=== PATIENT | male | born 1970 | race Caucasian/White ===

== ENCOUNTER 2018-02-04 16:33 | Inpatient (IN) | payer OTHER ==
[~2018-02-04 16:33] MED LIST: SUCCINYLCHOLINE CHLORIDE VIAL 200 MG/10 ML VIAL IV ONE
[2018-02-04] MEDS ORDERED: SODIUM CHLORIDE 0.9% 1,000 ML IV STA (16:51)
--- NOTE | 2018-02-04 17:02 | ED ---
General Adult HPI - General Chief complaint: Seizure Stated complaint: unresponsive Time Seen by Provider: 02/04/18 16:50 Source: EMS Mode of arrival: EMS Limitations: altered mental status - History of Present Illness Initial comments: Lazaro Hunter is a 47-year-old male who presents to the ED via EMS unresponsive. Per EMS the patient's significant other returned home and found him in his bed having an active tonic-clonic seizure, 911 was called and EMS arrived on scene. They report that upon their arrival the patient remained in his bed having a tonic-clonic seizure. They established IV access and gave him 7.5 mg of Versed with subsequent resolution of the seizure. EMS reports that patient was seizing for 30 minutes that they witnessed but is uncertain how long he been seizing prior to that. Per EMS they were told by the patient's girlfriend she had last seen him a couple of days ago. Per her he does have a history of alcohol abuse, she doesn't believe that he has been attempting to stop drinking. She believes he has a history of hypertension but is not on any medications. EMS reports that there was no alcohol around the patient, there is no drug paraphernalia, there are no empty pill bottles. Further history is limited by the patient's unconscious state. - Related Data Home Medications Medication Instructions Recorded Confirmed Grape Seed Extract 1 tab PO DAILY 02/04/18 02/04/18 Magnesium(Unknown Dose) 1 tab PO DAILY 02/04/18 02/04/18 Multivitamins, Thera [Multivitamin 1 tab PO DAILY 02/04/18 02/04/18 (formulary)] Potassium 99 mg PO DAILY 02/04/18 02/04/18 Allergies Allergy/AdvReac Type Severity Reaction Status Date / Time No Known Allergies Allergy Unverified 02/04/18 18:31 Review of Systems ROS Statement: Those systems with pertinent positive or pertinent negative responses have been documented in the HPI. ROS Other: All systems not noted in ROS Statement are negative. Limitations: ROS unobtainable due to patients medical condition Past Medical History Past Medical History: No Reported History History of Any Multi-Drug Resistant Organisms: None Reported Past Surgical History: No Surgical Hx Reported Past Psychological History: No Psychological Hx Reported Smoking Status: Never smoker Past Alcohol Use History: None Reported Past Drug Use History: None Reported - Past Family History Father Family Medical History: Cancer Additional Family Medical History / Comment(s): lung cancer and agent orange exposure. Mother Family Medical History: No Reported History General Exam Limitations: altered mental status (Unresponsive) General appearance: other (Unresponsive) Head exam: Present: atraumatic, normocephalic Eye exam: Present: PERRL, other (No spontaneous eye opening, when eyelids are open the eyes or moving any seizure-like manner) ENT exam: Present: TM's normal bilaterally, other (Poor dentition) Neck exam: Present: other (Cervical collar in place) Respiratory exam: Present: other (Breathing spontaneously, coarse breath sounds bilaterally) Cardiovascular Exam: Present: normal rhythm, tachycardia, other (Bruising to right lateral chest wall) GI/Abdominal exam: Absent: distended Extremities exam: Present: other (No obvious deformities or injuries) Neurological exam: Present: other (Unresponsive, no spontaneous speaking, no spontaneous eye opening, no response to pain, GCS 3) Skin exam: Present: warm, diaphoretic Course Vital Signs 02/04/18 02/04/18 02/04/18 16:34 17:00 18:00 Temperature 100.8 F H 101.8 F H 100.9 F H Pulse Rate 110 H 92 94 Respiratory 16 16 18 Rate Blood Pressure 146/65 130/78 121/77 O2 Sat by Pulse 99 99 100 Oximetry 02/04/18 02/04/18 02/04/18 19:00 20:00 21:00 Temperature 100.4 F H 100.6 F H 100.2 F H Pulse Rate 92 90 95 Respiratory 14 16 18 Rate Blood Pressure 113/72 121/75 123/80 O2 Sat by Pulse 100 100 98 Oximetry 02/04/18 21:32 Temperature 100.6 F H Pulse Rate 87 Respiratory 16 Rate Blood Pressure 125/80 O2 Sat by Pulse 100 Oximetry EKG Findings - EKG Comments: EKG Findings:: EKG at 1637 - 8 is 107, rhythm is sinus tachycardia, normal axis , MT interval is normal, QRS is normal, QT is prolonged at 528, no evidence of acute ischemia or infarction Procedures - Intubation Sedative: Etomidate Paralytic: Succinylcholine Laryngoscope: fiber optic video scope Assist Device Used: fiber optic device ET Tube Size: 8 ET Tube Uncuffed: No Tube Secured Location: teeth Tube Placement Confirmation: visualized tube passing through cords, equal breath sounds bilaterally Patient Tolerated Procedure: well, no complications Intubation Complications: none Medical Decision Making - Medical Decision Making The patient was seen and evaluated immediately upon arrival to the emergency department The patient was unresponsive but had spontaneous respirations and an oxygen saturation of 100% on nonrebreather Due to low GCS decision was made to intubate the patient IV access was obtained, blood was obtained for labs, patient was intubated Patient noted to be febrile, tachycardic, diaphoretic Labs and imaging were ordered Patient was reevaluated and noted to be continuously seizing, IV Ativan was ordered and propofol drip was increased Labs begin to resolve with multiple significant electrolyte abnormalities including hyponatremia with a sodium of 112, hypokalemia with a potassium at 2.1 , low serum osmolality Patient care was discussed with nephrology environmental systems coordinator who recommended 3% saline infusion at 40 mL per hour and every 2 BMPs to follow a sodium - Lab Data Result diagrams: 02/04/18 16:58 02/04/18 21:56 Lab Results 02/04/18 02/04/18 02/04/18 Range/Units 16:58 16:58 16:58 WBC 9.8 (3.8-10.6) k/uL RBC 4.23 L (4.30-5.90) m/uL Hgb 14.4 (13.0-17.5) gm/dL Hct 38.8 L (39.0-53.0) % MCV 91.8 (80.0-100.0) fL MCH 34.1 (25.0-35.0) pg MCHC 37.2 H (31.0-37.0) g/dL RDW 12.1 (11.5-15.5) % Plt Count 259 (150-450) k/uL Neutrophils % 89 % Lymphocytes % 2 % Monocytes % 8 % Eosinophils % 0 % Basophils % 0 % Neutrophils # 8.8 H (1.3-7.7) k/uL Lymphocytes # 0.2 L (1.0-4.8) k/uL Monocytes # 0.8 (0-1.0) k/uL Eosinophils # 0.0 (0-0.7) k/uL Basophils # 0.0 (0-0.2) k/uL Hyperchromasia Marked Sample Site ABG pH (7.35-7.45) ABG pCO2 (35-45) mmHg ABG pO2 (83-108) mmHg ABG HCO3 (21-25) mmol/L ABG Total CO2 (19-24) mmol/L ABG O2 Saturation (94-97) % ABG Base Excess mmol/L Everardo Test FiO2 % Sodium 112 L* (137-145) mmol/L Potassium 2.1 L* (3.5-5.1) mmol/L Chloride <50 L* (98-107) mmol/L Carbon Dioxide 42 H* (22-30) mmol/L Anion Gap 20 mmol/L BUN 20 (9-20) mg/dL Creatinine 0.70 (0.66-1.25) mg/dL Est GFR (CKD-EPI)AfAm >90 (>60 ml/min/1.73 sqM) Est GFR (CKD-EPI)NonAf >90 (>60 ml/min/1.73 sqM) Glucose 159 H (74-99) mg/dL Osmolality 236 L* (280-301) mosm/kg Plasma Lactic Acid Esa (0.7-2.0) mmol/L Calcium 8.4 (8.4-10.2) mg/dL Total Bilirubin 1.3 (0.2-1.3) mg/dL AST 96 H (17-59) U/L ALT 80 H (21-72) U/L Alkaline Phosphatase 182 H (38-126) U/L CK-MB (CK-2) 1.4 (0.0-2.4) ng/mL Total Protein 7.2 (6.3-8.2) g/dL Albumin 4.3 (3.5-5.0) g/dL Urine Color Urine Appearance (Clear) Urine pH (5.0-8.0) Ur Specific [place] (1.001-1.035) Urine Protein (Negative) Urine Glucose (UA) (Negative) Urine Ketones (Negative) Urine Blood (Negative) Urine Nitrite (Negative) Urine Bilirubin (Negative) Urine Urobilinogen (<2.0) mg/dL Ur Leukocyte Esterase (Negative) Urine RBC (0-5) /hpf Urine WBC (0-5) /hpf Ur Squamous Epith Cells (0-4) /hpf Urine Bacteria (None) /hpf Hyaline Casts (0-2) /lpf Urine Mucus (None) /hpf Urine Osmolality (50-1400) mosm/kg Ur Random Sodium (30-90) mmol/L Salicylates <1.0 mg/dL Urine Opiates Screen (NotDetected) Ur Oxycodone Screen (NotDetected) Urine Methadone Screen (NotDetected) Ur Propoxyphene Screen (NotDetected) Acetaminophen <10.0 ug/mL Ur Barbiturates Screen (NotDetected) U Tricyclic Antidepress (NotDetected) Ur Phencyclidine Scrn (NotDetected) Ur Amphetamines Screen (NotDetected) U Methamphetamines Scrn (NotDetected) U Benzodiazepines Scrn (NotDetected) Urine Cocaine Screen (NotDetected) U Marijuana (THC) Screen (NotDetected) Serum Alcohol <10 mg/dL 02/04/18 02/04/18 02/04/18 Range/Units 16:58 16:58 16:58 WBC (3.8-10.6) k/uL RBC (4.30-5.90) m/uL Hgb (13.0-17.5) gm/dL Hct (39.0-53.0) % MCV (80.0-100.0) fL MCH (25.0-35.0) pg MCHC (31.0-37.0) g/dL RDW (11.5-15.5) % Plt Count (150-450) k/uL Neutrophils % % Lymphocytes % % Monocytes % % Eosinophils % % Basophils % % Neutrophils # (1.3-7.7) k/uL Lymphocytes # (1.0-4.8) k/uL Monocytes # (0-1.0) k/uL Eosinophils # (0-0.7) k/uL Basophils # (0-0.2) k/uL Hyperchromasia Sample Site ABG pH (7.35-7.45) ABG pCO2 (35-45) mmHg ABG pO2 (83-108) mmHg ABG HCO3 (21-25) mmol/L ABG Total CO2 (19-24) mmol/L ABG O2 Saturation (94-97) % ABG Base Excess mmol/L Everardo Test FiO2 % Sodium (137-145) mmol/L Potassium (3.5-5.1) mmol/L Chloride (98-107) mmol/L Carbon Dioxide (22-30) mmol/L Anion Gap mmol/L BUN (9-20) mg/dL Creatinine (0.66-1.25) mg/dL Est GFR (CKD-EPI)AfAm (>60 ml/min/1.73 sqM) Est GFR (CKD-EPI)NonAf (>60 ml/min/1.73 sqM) Glucose (74-99) mg/dL Osmolality (280-301) mosm/kg Plasma Lactic Acid Sea (0.7-2.0) mmol/L Calcium (8.4-10.2) mg/dL Total Bilirubin (0.2-1.3) mg/dL AST (17-59) U/L ALT (21-72) U/L Alkaline Phosphatase (38-126) U/L CK-MB (CK-2) (0.0-2.4) ng/mL Total Protein (6.3-8.2) g/dL Albumin (3.5-5.0) g/dL Urine Color Yellow Urine Appearance Clear (Clear) Urine pH 6.5 (5.0-8.0) Ur Specific [place] 1.014 (1.001-1.035) Urine Protein 2+ H (Negative) Urine Glucose (UA) Negative (Negative) Urine Ketones 1+ H (Negative) Urine Blood Small H (Negative) Urine Nitrite Negative (Negative) Urine Bilirubin Negative (Negative) Urine Urobilinogen 3.0 (<2.0) mg/dL Ur Leukocyte Esterase Negative (Negative) Urine RBC 2 (0-5) /hpf Urine WBC 1 (0-5) /hpf Ur Squamous Epith Cells <1 (0-4) /hpf Urine Bacteria Rare H (None) /hpf Hyaline Casts 30 H (0-2) /lpf Urine Mucus Rare H (None) /hpf Urine Osmolality 407 (50-1400) mosm/kg Ur Random Sodium 12 L (30-90) mmol/L Salicylates mg/dL Urine Opiates Screen Not Detected (NotDetected) Ur Oxycodone Screen Not Detected (NotDetected) Urine Methadone Screen Not Detected (NotDetected) Ur Propoxyphene Screen Not Detected (NotDetected) Acetaminophen ug/mL Ur Barbiturates Screen Not Detected (NotDetected) U Tricyclic Antidepress Not Detected (NotDetected) Ur Phencyclidine Scrn Not Detected (NotDetected) Ur Amphetamines Screen Not Detected (NotDetected) U Methamphetamines Scrn Not Detected (NotDetected) U Benzodiazepines Scrn Not Detected (NotDetected) Urine Cocaine Screen Not Detected (NotDetected) U Marijuana (THC) Screen Not Detected (NotDetected) Serum Alcohol mg/dL 02/04/18 02/04/18 Range/Units 17:18 17:34 WBC (3.8-10.6) k/uL RBC (4.30-5.90) m/uL Hgb (13.0-17.5) gm/dL Hct (39.0-53.0) % MCV (80.0-100.0) fL MCH (25.0-35.0) pg MCHC (31.0-37.0) g/dL RDW (11.5-15.5) % Plt Count (150-450) k/uL Neutrophils % % Lymphocytes % % Monocytes % % Eosinophils % % Basophils % % Neutrophils # (1.3-7.7) k/uL Lymphocytes # (1.0-4.8) k/uL Monocytes # (0-1.0) k/uL Eosinophils # (0-0.7) k/uL Basophils # (0-0.2) k/uL Hyperchromasia Sample Site Right Radial ABG pH 7.48 H (7.35-7.45) ABG pCO2 61 H (35-45) mmHg ABG pO2 >400 H (83-108) mmHg ABG HCO3 45 H* (21-25) mmol/L ABG Total CO2 47 H (19-24) mmol/L ABG O2 Saturation 100.0 H (94-97) % ABG Base Excess 21.8 mmol/L Everardo Test Yes FiO2 100 % Sodium (137-145) mmol/L Potassium (3.5-5.1) mmol/L Chloride (98-107) mmol/L Carbon Dioxide (22-30) mmol/L Anion Gap mmol/L BUN (9-20) mg/dL Creatinine (0.66-1.25) mg/dL Est GFR (CKD-EPI)AfAm (>60 ml/min/1.73 sqM) Est GFR (CKD-EPI)NonAf (>60 ml/min/1.73 sqM) Glucose (74-99) mg/dL Osmolality (280-301) mosm/kg Plasma Lactic Acid Esa 1.0 (0.7-2.0) mmol/L Calcium (8.4-10.2) mg/dL Total Bilirubin (0.2-1.3) mg/dL AST (17-59) U/L ALT (21-72) U/L Alkaline Phosphatase (38-126) U/L CK-MB (CK-2) (0.0-2.4) ng/mL Total Protein (6.3-8.2) g/dL Albumin (3.5-5.0) g/dL Urine Color Urine Appearance (Clear) Urine pH (5.0-8.0) Ur Specific [place] (1.001-1.035) Urine Protein (Negative) Urine Glucose (UA) (Negative) Urine Ketones (Negative) Urine Blood (Negative) Urine Nitrite (Negative) Urine Bilirubin (Negative) Urine Urobilinogen (<2.0) mg/dL Ur Leukocyte Esterase (Negative) Urine RBC (0-5) /hpf Urine WBC (0-5) /hpf Ur Squamous Epith Cells (0-4) /hpf Urine Bacteria (None) /hpf Hyaline Casts (0-2) /lpf Urine Mucus (None) /hpf Urine Osmolality (50-1400) mosm/kg Ur Random Sodium (30-90) mmol/L Salicylates mg/dL Urine Opiates Screen (NotDetected) Ur Oxycodone Screen (NotDetected) Urine Methadone Screen (NotDetected) Ur Propoxyphene Screen (NotDetected) Acetaminophen ug/mL Ur Barbiturates Screen (NotDetected) U Tricyclic Antidepress (NotDetected) Ur Phencyclidine Scrn (NotDetected) Ur Amphetamines Screen (NotDetected) U Methamphetamines Scrn (NotDetected) U Benzodiazepines Scrn (NotDetected) Urine Cocaine Screen (NotDetected) U Marijuana (THC) Screen (NotDetected) Serum Alcohol mg/dL Disposition Clinical Impression: Generalized seizure Disposition: ADMITTED IP TO THIS [facility] Decision Time: 22:00
[2018-02-04 17:21] LABS: Basophils % (A) 0 %; Eosinophils % (A) 0 %; HCT 38.8 % (39.0-53.0); HGB 14.4 gm/dL (13.0-17.5); Hyperchromasia Marked; Lymphocytes # (A) 0.2 k/uL (1.0-4.8); Lymphocytes % (A) 2 %; MCH 34.1 pg (25.0-35.0); MCHC 37.2 g/dL (31.0-37.0); MCV 91.8 fL (80.0-100.0); Mean Platelet Volume 6.7; Monocytes # (A) 0.8 k/uL (0-1.0); Monocytes % (A) 8 %; Neutrophils # (A) 8.8 k/uL (1.3-7.7); Neutrophils % (A) 89 %; Platelet Count 259 k/uL (150-450); RBC 4.23 m/uL (4.30-5.90); RDW 12.1 % (11.5-15.5); WBC 9.8 k/uL (3.8-10.6)
[2018-02-04 17:23] LABS: Amphetamine Screen,Urine Not Detected (NotDetected); Barbiturate Screen,Urine Not Detected (NotDetected); Benzodiazepines Screen,Urine Not Detected (NotDetected); Cocaine Screen,Urine Not Detected (NotDetected); Methadone Screen, Urine Not Detected (NotDetected); Opiate Screen,Urine Not Detected (NotDetected); Oxycodone Screen, Urine Not Detected (NotDetected); Phencyclidine Screen,Urine Not Detected (NotDetected); Tricyclic Antidepressant,Urine Not Detected (NotDetected); Urn Cannabinoid Scrn Not Detected (NotDetected)
[2018-02-04 17:29] LABS: ALT 80 U/L (21-72); AST 96 U/L (17-59); Acetaminophen <10.0 ug/mL; Albumin 4.3 g/dL (3.5-5.0); Alcohol <10 mg/dL; Alkaline Phosphatase 182 U/L (38-126); Blood Urea Nitrogen 20 mg/dL (9-20); Calcium 8.4 mg/dL (8.4-10.2); Glucose 159 mg/dL (74-99); Salicylate <1.0 mg/dL; Total Bilirubin 1.3 mg/dL (0.2-1.3); Total Protein 7.2 g/dL (6.3-8.2)
[2018-02-04 17:36] LABS: Anion Gap 20 mmol/L
[2018-02-04 17:36] LABS: ABG Base Excess 21.8 mmol/L; ABG PCO2 61 mmHg (35-45); ABG PH 7.48 (7.35-7.45); ABG PO2 >400 mmHg (83-108); ABG TCO2 47 mmol/L (19-24)
[2018-02-04 17:37] LABS: ABG HCO3 45 mmol/L (21-25)
[2018-02-04 17:39] LABS: Carbon Dioxide 42 mmol/L (22-30); Chloride <50 mmol/L (98-107); Potassium 2.1 mmol/L (3.5-5.1); Sodium 112 mmol/L (137-145)
[2018-02-04] MEDS ORDERED: LORazepam 2 MG/ML INJ IV STA (17:39)
[2018-02-04] MEDS ORDERED: PROPOFOL 1,000 MG in EMPTY BAG 1 BAG IV ONE (17:40)
--- NOTE | 2018-02-04 17:40 | XR ---
EXAMINATION TYPE: XR chest 1V DATE OF EXAM: 02/04/2018 COMPARISON: 12/10/2013 HISTORY: Intubation TECHNIQUE: Single frontal view of the chest is obtained. FINDINGS: Endotracheal tube is 3.5 cm from the nanda. Lungs are clear of consolidation. There is so me coarsening of interstitial markings. There is no pleural effusion. Heart size is normal. There are chest leads. IMPRESSION: New mild pulmonary interstitial infiltrates in the midlung rendon compared to last exam. Normal heart.
[2018-02-04] MEDS ORDERED: levETIRAcetam IV 1,500 MG in SALINE 1 100ML.BAG IVPB STA (17:41)
[2018-02-04 17:42] LABS: Appearance,Urine Clear (Clear); Bacteria,Urine Rare /hpf; Bilirubin,Urine Negative (Negative); Blood,Urine Small (Negative); Color,Urine Yellow; Glucose,Urine (UA) Negative (Negative); Hyaline Casts,Urine 30 /lpf (0-2); Ketones,Urine 1+ (Negative); Leukocyte Esterase,Urine Negative (Negative); Mucus,Urine Rare /hpf; Nitrite,Urine Negative (Negative); PH, Urine 6.5 (5.0-8.0); Protein,Urine 2+ (Negative); RBC,Urine 2 /hpf (0-5); Specific Gravity,Urine 1.014 (1.001-1.035); Squamous Epithelial Cell,Urine <1 /hpf (0-4); WBC,Urine 1 /hpf (0-5)
[2018-02-04] MEDS ORDERED: POTASSIUM CHLORIDE 10 MEQ in WATER FOR INJECTION 1 100ML.BAG IVPB STA (18:03)
--- NOTE | 2018-02-04 18:22 | CT ---
EXAMINATION TYPE: CT brain moreno bishop con DATE OF EXAM: 02/04/2018 COMPARISON: Seizure activity. Neck pain HISTORY: Seizure activity today. CT DLP: 1119.5 mGycm Automated exposure control for dose reduction was used. TECHNIQUE: CT scan of the head and cervical spine are performed without contrast. FINDINGS: There is some cerebral cortical atrophy. There is no mass effect nor midline shift. There is no sign of intracranial hemorrhage. The calvarium is intact. The cervical vertebra have normal alignment and spacing. Posterior elements are intact. Facet joints are normal. There is mild spurring of the endplates at C5-6. The skull base is intact. Endotracheal t ube is noted. There is nasogastric tube. IMPRESSION: Cerebral atrophy. No acute intracranial abnormality. Negative CT scan of the cervical spine. Mild facet arthropathy and spondylotic change in the lower ce rvical spine.
[2018-02-04] MEDS ORDERED: SODIUM CHLORIDE 3%(HYPERTONIC) 500 ML IV SCH ×2 (18:30)
[2018-02-04] MEDS ORDERED: NALOXONE 0.4 MG/ML 1 ML VIAL IV PRN (19:20)
[2018-02-04] MEDS ORDERED: ETOMIDATE 2 MG/ML 10 ML VIAL IVP STA (20:37)
[2018-02-04 21:58] LABS: Glucose,Whole Blood 116 mg/dL (75-99)
[2018-02-04 22:24] LABS: Anion Gap 15 mmol/L; Blood Urea Nitrogen 17 mg/dL (9-20); Calcium 7.1 mg/dL (8.4-10.2); Carbon Dioxide 35 mmol/L (22-30); Glucose 107 mg/dL (74-99)
[2018-02-04] MEDS ORDERED: LORazepam 2 MG/ML INJ IV PRN (22:27)
[2018-02-04 22:34] LABS: Potassium 2.1 mmol/L (3.5-5.1); Sodium 117 mmol/L (137-145)
[2018-02-04 22:35] LABS: Chloride 67 mmol/L (98-107)
[2018-02-04] MEDS ORDERED: SODIUM CHLORIDE 0.45% 1,000 ML IV ONE (22:41)
[2018-02-04] MEDS ORDERED: POTASSIUM BICARBONATE/CIT AC 20 MEQ TABLET.EFF PO ONE (22:45)
[2018-02-04] MEDS: POTASSIUM CHLORIDE 10 MEQ in WATER FOR INJECTION 1 100ML.BAG IVPB SCH (23:05)
[2018-02-05] MEDS: POTASSIUM CHLORIDE 10 MEQ in WATER FOR INJECTION 1 100ML.BAG IVPB SCH ×3 (00:15→03:34)
--- NOTE | 2018-02-05 00:17 | XR ---
EXAMINATION TYPE: XR chest 1V portable DATE OF EXAM: 02/05/2018 COMPARISON: Today HISTORY: Check tube placement TECHNIQUE: Single frontal view of the chest is obtained. FINDINGS: Endotracheal tube is 4 cm from the nanda. Lungs are clear. There is no heart failure. Wilner ogastric tube appears to have tip over the heart in the lower esophagus. IMPRESSION: Nasogastric tube is not in the stomach and is approximately 10 cm from the gastroesophag eal junction. No heart failure.
[2018-02-05] MEDS: PIPERACILLIN-TAZOBACTAM 3.375 GM in DEXTROSE/WATER 1 50ML.BAG IVPB SCH ×3 (00:34→15:54)
--- NOTE | 2018-02-05 01:48 | XR ---
EXAMINATION TYPE: XR chest 1V portable DATE OF EXAM: 02/05/2018 COMPARISON: 02/04/2018 HISTORY: NG tube placement TECHNIQUE: Single frontal view of the chest is obtained. FINDINGS: Heart and mediastinum are normal. Lungs are clear of consolidation. Endotracheal tube is i n good position. There is nasogastric tube. This appears in good position in the gastric fundus. Endo tracheal tube is 5 cm from the nanda. Trachea is midline. There are chest leads. IMPRESSION: No active cardiopulmonary disease. NG tube in good position..
[2018-02-05 02:49] LABS: Anion Gap 12 mmol/L; Blood Urea Nitrogen 14 mg/dL (9-20); Calcium 7.4 mg/dL (8.4-10.2); Carbon Dioxide 37 mmol/L (22-30); Glucose 113 mg/dL (74-99); Potassium 3.3 mmol/L (3.5-5.1)
[2018-02-05 03:11] LABS: Chloride 67 mmol/L (98-107); Sodium 116 mmol/L (137-145)
[2018-02-05] MEDS: LORazepam 2 MG/ML INJ IV PRN (04:31)
[2018-02-05 04:45] LABS: HCT 35.3 % (39.0-53.0); HGB 12.8 gm/dL (13.0-17.5); Hyperchromasia Slight; MCH 34.6 pg (25.0-35.0); MCHC 36.3 g/dL (31.0-37.0); MCV 95.3 fL (80.0-100.0); Mean Platelet Volume 6.8; Platelet Count 232 k/uL (150-450); RDW 12.9 % (11.5-15.5); WBC 19.4 k/uL (3.8-10.6)
[2018-02-05 04:52] LABS: Anion Gap 13 mmol/L; Blood Urea Nitrogen 13 mg/dL (9-20); Calcium 7.5 mg/dL (8.4-10.2); Carbon Dioxide 36 mmol/L (22-30); Glucose 117 mg/dL (74-99); Magnesium 1.8 mg/dL (1.6-2.3)
[2018-02-05 04:59] LABS: Sodium 117 mmol/L (137-145)
[2018-02-05] MEDS: PROPOFOL 1,000 MG in EMPTY BAG 1 BAG IV SCH ×4 (05:00→20:40)
[2018-02-05 05:01] LABS: Chloride 68 mmol/L (98-107)
[2018-02-05] MEDS ORDERED: POTASSIUM BICARBONATE/CIT AC 20 MEQ TABLET.EFF PO ONE ×2 (05:45→21:16)
[2018-02-05] MEDS: POTASSIUM BICARBONATE/CIT AC 20 MEQ TABLET.EFF NG-TUBE SCH ×4 (06:09→18:06)
[2018-02-05] MEDS: POTASSIUM PHOSPHATE 10 MMOL in SODIUM CHLORIDE 0.9% 250 ML IV SCH ×2 (06:31→08:20)
[2018-02-05 07:13] LABS: ABG Base Excess 17.1 mmol/L; ABG Oxygen Saturation 96.7 % (94-97); ABG PCO2 46 mmHg (35-45); ABG PH 7.54 (7.35-7.45); ABG PO2 76 mmHg (83-108); ABG TCO2 41 mmol/L (19-24)
[2018-02-05 07:16] LABS: ABG HCO3 40 mmol/L (21-25)
--- NOTE | 2018-02-05 07:53 | P.NPCON ---
History of Present Illness - Reason for Consult hyponatremia - History of Present Illness Reason for consultation: Hyponatremia History of present illness: Patient is a 47-year-old male seen in renal consultation for hyponatremia. Per EMS reports patient's fianc found the patient having an active tonic-clonic seizure and called the EMS. Patient was given Versed as well as Ativan to control the seizures. Patient is currently intubated and sedated. His sodium level was noted to be low at 112 and he was started on 3% saline. The sodium level improved to 117 over the next few hours and 3% was discontinued. Currently he remains off all IV fluids. Sodium level stable at 117 this morning. He is noted to have some twitching of his left arm. Hemodynamically stable. He is nonoliguric. GFR is at baseline. He was also noted to be extremely hypokalemic with potassium level of 2.1 which is being aggressively replaced. It is up to 3.0 this morning. Magnesium is 1.8. He is also receiving IV Keppra. Neurology has been consulted. CT of the brain revealed no acute process. I don't see any diuretics and his home medications. Vital signs are stable. General: The patient appeared well nourished and normally developed. HEENT: Head exam is unremarkable. Neck is without jugular venous distension. Intubated. LUNGS: Lungs are clear to auscultation and percussion. Breath sounds decreased. HEART: Rate and Rhythm are regular. First and second heart sounds normal. No murmurs, rubs or gallops. ABDOMEN: Abdominal exam reveals normal bowel sounds. Non-tender and non- distended. No evidence of peritonitis. EXTREMITITES: No clubbing, cyanosis, or edema. Left upper extremity twitching. Past Medical History Past Medical History: No Reported History Additional Past Medical History / Comment(s): alcoholism History of Any Multi-Drug Resistant Organisms: None Reported Past Surgical History: No Surgical Hx Reported Past Anesthesia/Blood Transfusion Reactions: No Reported Reaction Past Psychological History: No Psychological Hx Reported Smoking Status: Never smoker Past Alcohol Use History: None Reported Past Drug Use History: None Reported - Past Family History Father Family Medical History: Cancer Additional Family Medical History / Comment(s): lung cancer and agent orange exposure. Mother Family Medical History: No Reported History Medications and Allergies Home Medications Medication Instructions Recorded Confirmed Type Grape Seed Extract 1 tab PO DAILY 02/04/18 02/04/18 History Magnesium(Unknown Dose) 1 tab PO DAILY 02/04/18 02/04/18 History Multivitamins, Thera [Multivitamin 1 tab PO DAILY 02/04/18 02/04/18 History (formulary)] Potassium 99 mg PO DAILY 02/04/18 02/04/18 History Allergies Allergy/AdvReac Type Severity Reaction Status Date / Time No Known Allergies Allergy Unverified 02/04/18 18:31 Physical Exam Vitals: Vital Signs Temp Pulse Resp BP Pulse Ox 02/05/18 07:00 98 18 114/76 95 02/05/18 06:30 101 H 21 123/76 98 02/05/18 06:00 94 18 117/76 98 02/05/18 05:30 93 18 118/74 98 02/05/18 05:00 96 18 115/76 98 02/05/18 04:30 97 19 124/77 99 02/05/18 04:00 98.8 F 95 20 108/74 100 02/05/18 03:30 99 31 H 123/72 100 02/05/18 03:00 113 H 18 123/72 100 02/05/18 02:30 101 H 21 118/74 99 02/05/18 02:00 103 H 22 111/76 99 02/05/18 01:30 103 H 18 118/82 97 02/05/18 01:00 99.8 F H 102 H 16 114/79 100 02/05/18 00:30 101 H 25 H 118/72 100 02/05/18 00:00 95 16 114/71 100 02/04/18 23:30 95 16 108/69 100 02/04/18 23:00 95 16 100 02/04/18 22:30 95 16 115/72 100 02/04/18 22:00 98 17 115/72 02/04/18 21:47 95 16 02/04/18 21:32 100.6 F H 87 16 125/80 100 02/04/18 21:00 100.2 F H 95 18 123/80 98 02/04/18 20:00 100.6 F H 90 16 121/75 100 02/04/18 19:00 100.4 F H 92 14 113/72 100 02/04/18 18:00 100.9 F H 94 18 121/77 100 02/04/18 17:00 101.8 F H 92 16 130/78 99 02/04/18 16:34 100.8 F H 110 H 16 146/65 99 Intake and Output 02/04/18 02/05/18 02/05/18 22:59 06:59 14:59 Intake Total 2959.091 28.476 Output Total 575 750 Balance -575 2209.091 28.476 Intake: IV 2830 Piperacillin-Tazobactam 3 50 .375 gm In Dextrose/Water 1 50ml.bag @ 12.5 mls/hr IVPB Q8HR [facility] Rx#: [id number] Potassium Chloride 10 meq 400 In Water For Injection 1 100ml.bag @ 100 mls/hr IVPB ONCE STA Rx#: [id number] Potassium Phosphate 10 125 mmol In Sodium Chloride 0 .9% 250 ml @ 125 mls/hr IV Q2H [facility] Rx#:[id number] Sodium Chloride 0.45% 1, 225 000 ml @ 75 mls/hr IV . [id number] Rx#:[id number] Sodium Chloride 0.9% 1, 2000 000 ml @ 999 mls/hr IV . Q1H1M STA Rx#:[id number] Sodium Chloride 3%( 30 Hypertonic) 500 ml @ 30 mls/hr IV .[id number] [facility] Rx #:[id number] Intake, IV Titration 79.091 28.476 Amount Propofol 1,000 mg In 79.091 Empty Bag 1 bag @ Titrate IV .Q0M [facility] Rx#: [id number] Propofol 1,000 mg In 28.476 Empty Bag 1 bag @ Titrate IV .Q0M [facility] Rx#: [id number] Tube Feeding 50 Output: Urine 575 750 Other: Voiding Method Indwelling Catheter Indwelling Catheter Weight 57.1 kg 56.5 kg Results - Lab Results Most recent lab results ABG pH 7.54 (7.35-7.45) H 02/05/18 07:13 ABG pCO2 46 mmHg (35-45) H 02/05/18 07:13 ABG pO2 76 mmHg (83-108) L 02/05/18 07:13 ABG HCO3 40 mmol/L (21-25) H* 02/05/18 07:13 ABG O2 Saturation 96.7 % (94-97) 02/05/18 07:13 Calcium 7.5 mg/dL (8.4-10.2) L 02/05/18 04:11 Phosphorus 2.0 mg/dL (2.5-4.5) L 02/05/18 04:11 Magnesium 1.8 mg/dL (1.6-2.3) 02/05/18 04:11 02/05/18 04:11 02/05/18 04:11 Assessment and Plan Plan: Assessment: 1. Symptomatic hypoosmolar hyponatremia status post 3%. Sodium level of to 117 this morning. Urine sodium noted to be low sodium appears to be hypovolemic hyponatremia. 2. Seizure secondary to hyponatremia. Neurology following. 3. Severe hypokalemia. Etiology unclear. Unsure if patient was having any vomiting or diarrhea. 4. Metabolic alkalosis secondary to volume contraction. 5. Hypophosphatemia from poor oral intake likely. Plan: Currently off all IV fluids. Repeat sodium level at 9 AM today. Goal rate of correction 6-8 mEq per 24 hours. Continue with magnesium and phosphorus replacement. Thank you for the consultation. I will continue to follow the patient with you during his hospital stay.
[2018-02-05] MEDS: levETIRAcetam IV 750 MG in SODIUM CHLORIDE 0.9% 100 ML IVPB SCH ×2 (08:10→20:13)
--- NOTE | 2018-02-05 08:22 | P.CNNES ---
History of Present Illness Consult date: 02/05/18 Reason for Consult: Patient admitted with seizures and severe hyponatremia. History of Present Illness: This patient is a 47-year-old right-handed white male who was brought into the emergency room at [facility] yesterday after having a witnessed seizure at home. Apparently his girlfriend had returned home and found him in bed having an active tonic clonic seizure. She immediately called 911 and EMS was dispatched to the home. When EMS arrived they found the patient having a generalized tonic-clonic seizure. IV access was established and he was given 7.5 mg of Versed and Ativan. The seizures did seem to stop at that time. According to the girlfriend he apparently may have been seizing for at least 30 minutes in duration. This exact information was not verified as a girlfriend arrived he was continuously seizing in his bedroom. He does have a history of prior alcohol abuse but is not been admitted for alcohol related seizures. Apparently he has been attempting to stop drinking recently. EMS did not find any evidence of alcohol in the home are around him and there was no drug paraphernalia noted near his vicinity. The patient was transported immediately to the emergency room at [facility]. He was seen in the ER by Dr. Freeman. He was sent for a computed tomography scan of the brain for further evaluation. CAT scan of the brain reveals cerebral atrophy with no acute intracranial abnormality. CT of the cervical spine revealed mild facet arthropathy and spondylitic change in the lower cervical spine. Patient was evaluated with laboratory testing and had evidence of severe hyponatremia with a serum sodium of 112. Nephrology was contacted and the patient was started on 3% normal saline in the ER. The patient was intubated and transferred to the intensive care unit. He remains intubated at this time and his serum sodium this morning is 117. His 3% saline was discontinued. He is being followed closely by nephrology and Dr. Erwin who is monitoring his condition closely. In the ER the patient was loaded with IV Keppra due to his seizure activity. He was noted to have some left arm focal twitching the etiology of which is still unclear. As noted CAT scan of the brain failed to reveal any acute abnormality. The patient is currently been maintained on Keppra 750 mg IV piggyback every 12 hours. We are waiting a Keppra blood level to be done this morning. We're also recommending an EEG to be done for further evaluation. The patient is now examined in the intensive care unit. He remains intubated. He is moving all extremities. He seems to be having some posturing with the left arm only. He does have a gag and pupils are responsive. We are waiting EEG to be performed for this patient this morning. Neurology is now been consulted for further evaluation and recommendations. Review of Systems ROS unobtainable: due to endotracheal tube Constitutional: Denies chills, Denies fever Eyes: denies blurred vision, denies pain Ears, nose, mouth and throat: Denies headache, Denies sore throat Cardiovascular: Denies chest pain, Denies shortness of breath Respiratory: Denies cough Gastrointestinal: Denies abdominal pain, Denies diarrhea, Denies nausea, Denies vomiting Musculoskeletal: Denies myalgias Integumentary: Denies pruritus, Denies rash Neurological: Reports change in mentation, Reports confusion, Reports convulsions, Reports seizures, Reports tremors, Denies numbness, Denies weakness Psychiatric: Denies anxiety, Denies depression Endocrine: Denies fatigue, Denies weight change Past Medical History Past Medical History: No Reported History Additional Past Medical History / Comment(s): alcoholism History of Any Multi-Drug Resistant Organisms: None Reported Past Surgical History: No Surgical Hx Reported Past Anesthesia/Blood Transfusion Reactions: No Reported Reaction Past Psychological History: No Psychological Hx Reported Smoking Status: Never smoker Past Alcohol Use History: None Reported Past Drug Use History: None Reported - Past Family History Father Family Medical History: Cancer Additional Family Medical History / Comment(s): lung cancer and agent orange exposure. Mother Family Medical History: No Reported History Medications and Allergies Home Medications Medication Instructions Recorded Confirmed Type Grape Seed Extract 1 tab PO DAILY 02/04/18 02/04/18 History Magnesium(Unknown Dose) 1 tab PO DAILY 02/04/18 02/04/18 History Multivitamins, Thera [Multivitamin 1 tab PO DAILY 02/04/18 02/04/18 History (formulary)] Potassium 99 mg PO DAILY 02/04/18 02/04/18 History Allergies Allergy/AdvReac Type Severity Reaction Status Date / Time No Known Allergies Allergy Unverified 02/04/18 18:31 Physical Examination - Vital Signs Vital Signs: Vital Signs Temp Pulse Resp BP Pulse Ox 02/05/18 07:00 98 18 114/76 95 02/05/18 06:30 101 H 21 123/76 98 02/05/18 06:00 94 18 117/76 98 02/05/18 05:30 93 18 118/74 98 02/05/18 05:00 96 18 115/76 98 02/05/18 04:30 97 19 124/77 99 02/05/18 04:00 98.8 F 95 20 108/74 100 02/05/18 03:30 99 31 H 123/72 100 02/05/18 03:00 113 H 18 123/72 100 02/05/18 02:30 101 H 21 118/74 99 02/05/18 02:00 103 H 22 111/76 99 02/05/18 01:30 103 H 18 118/82 97 02/05/18 01:00 99.8 F H 102 H 16 114/79 100 02/05/18 00:30 101 H 25 H 118/72 100 02/05/18 00:00 95 16 114/71 100 02/04/18 23:30 95 16 108/69 100 02/04/18 23:00 95 16 100 02/04/18 22:30 95 16 115/72 100 02/04/18 22:00 98 17 115/72 02/04/18 21:47 95 16 02/04/18 21:32 100.6 F H 87 16 125/80 100 02/04/18 21:00 100.2 F H 95 18 123/80 98 02/04/18 20:00 100.6 F H 90 16 121/75 100 02/04/18 19:00 100.4 F H 92 14 113/72 100 02/04/18 18:00 100.9 F H 94 18 121/77 100 02/04/18 17:00 101.8 F H 92 16 130/78 99 02/04/18 16:34 100.8 F H 110 H 16 146/65 99 Intake and Output 02/04/18 02/05/18 02/05/18 22:59 06:59 14:59 Intake Total 2959.091 28.476 Output Total 575 750 Balance -575 2209.091 28.476 Intake: IV 2830 Piperacillin-Tazobactam 3 50 .375 gm In Dextrose/Water 1 50ml.bag @ 12.5 mls/hr IVPB Q8HR [facility] Rx#: [id number] Potassium Chloride 10 meq 400 In Water For Injection 1 100ml.bag @ 100 mls/hr IVPB ONCE [facility] Rx#: [id number] Potassium Phosphate 10 125 mmol In Sodium Chloride 0 .9% 250 ml @ 125 mls/hr IV Q2H [facility] Rx#:[id number] Sodium Chloride 0.45% 1, 225 000 ml @ 75 mls/hr IV . [id number] ONE Rx#:[id number] Sodium Chloride 0.9% 1, 2000 000 ml @ 999 mls/hr IV . Q1H1M [facility] Rx#:[id number] Sodium Chloride 3%( 30 Hypertonic) 500 ml @ 30 mls/hr IV .[id number] [facility] Rx #:[id number] Intake, IV Titration 79.091 28.476 Amount Propofol 1,000 mg In 79.091 Empty Bag 1 bag @ Titrate IV .Q0M [facility] Rx#: [id number] Propofol 1,000 mg In 28.476 Empty Bag 1 bag @ Titrate IV .Q0M [facility] Rx#: [id number] Tube Feeding 50 Output: Urine 575 750 Other: Voiding Method Indwelling Catheter Indwelling Catheter Weight 57.1 kg 56.5 kg - Constitutional General appearance: average body habitus, no acute distress - EENT EENT: PERRL, mucous membranes moist - Respiratory Respiratory: lungs clear, normal breath sounds - Cardiovascular Cardiovascular: regular rate, normal S1, normal S2 Extremities: no peripheral edema bilaterally - Gastrointestinal Gastrointestinal: normoactive bowel sounds - Integumentary Integumentary: normal - Neurologic Cranial nerve examination: PERRL, EOMI, VFF, V1/V2/V3 grossly intact, face symmetric, intact gag reflex, intact corneal reflex, normal palatal elevation Speech examination: intact Sensorimotor examination: intact Motor examination - right side: 4/5: biceps, triceps, wrist flexion, wrist extension, motor and generator brush maker, hip flexors, knee extensors, dorsiflexion, toe extension (EHL) , plantarflexion Motor examination - left side: 4/5: biceps, triceps, wrist flexion, wrist extension, motor and generator brush maker, hip flexors, knee extensors, dorsiflexion, toe extension (EHL) , plantarflexion Detailed sensory examination: intact Reflex and gait examination: intact Reflexes: 1+: ankle, bicep, knee, tricep - Musculoskeletal Musculoskeletal: no pain - Psychiatric Psychiatric: mood/affect appropriate, cooperative Results - Laboratory Findings CBC and BMP: 02/05/18 04:11 02/05/18 04:11 Abnormal Lab Findings: Abnormal Labs 02/04/18 02/04/18 02/04/18 16:58 16:58 16:58 WBC RBC 4.23 L Hgb Hct 38.8 L MCHC 37.2 H Neutrophils # 8.8 H Lymphocytes # 0.2 L ABG pH ABG pCO2 ABG pO2 ABG HCO3 ABG Total CO2 ABG O2 Saturation Sodium 112 L* Potassium 2.1 L* Chloride <50 L* Carbon Dioxide 42 H* Creatinine Glucose 159 H POC Glucose (mg/dL) Osmolality 236 L* Calcium Phosphorus AST 96 H ALT 80 H Alkaline Phosphatase 182 H Urine Protein 2+ H Urine Ketones 1+ H Urine Blood Small H Urine Bacteria Rare H Hyaline Casts 30 H Urine Mucus Rare H Ur Random Sodium 02/04/18 02/04/18 02/04/18 16:58 17:34 21:47 WBC RBC Hgb Hct MCHC Neutrophils # Lymphocytes # ABG pH 7.48 H ABG pCO2 61 H ABG pO2 >400 H ABG HCO3 45 H* ABG Total CO2 47 H ABG O2 Saturation 100.0 H Sodium Potassium Chloride Carbon Dioxide Creatinine Glucose POC Glucose (mg/dL) 116 H Osmolality Calcium Phosphorus AST ALT Alkaline Phosphatase Urine Protein Urine Ketones Urine Blood Urine Bacteria Hyaline Casts Urine Mucus Ur Random Sodium 12 L 02/04/18 02/05/18 02/05/18 21:56 01:56 04:11 WBC 19.4 H RBC 3.70 L Hgb 12.8 L Hct 35.3 L MCHC Neutrophils # Lymphocytes # ABG pH ABG pCO2 ABG pO2 ABG HCO3 ABG Total CO2 ABG O2 Saturation Sodium 117 L* 116 L* Potassium 2.1 L* 3.3 L Chloride 67 L* 67 L* Carbon Dioxide 35 H 37 H Creatinine 0.50 L 0.40 L Glucose 107 H 113 H POC Glucose (mg/dL) Osmolality Calcium 7.1 L 7.4 L Phosphorus AST ALT Alkaline Phosphatase Urine Protein Urine Ketones Urine Blood Urine Bacteria Hyaline Casts Urine Mucus Ur Random Sodium 02/05/18 04:11 WBC RBC Hgb Hct MCHC Neutrophils # Lymphocytes # ABG pH ABG pCO2 ABG pO2 ABG HCO3 ABG Total CO2 ABG O2 Saturation Sodium 117 L* Potassium 3.0 L* Chloride 68 L* Carbon Dioxide 36 H Creatinine 0.50 L Glucose 117 H POC Glucose (mg/dL) Osmolality Calcium 7.5 L Phosphorus 2.0 L AST ALT Alkaline Phosphatase Urine Protein Urine Ketones Urine Blood Urine Bacteria Hyaline Casts Urine Mucus Ur Random Sodium Assessment and Plan (1) New onset seizure Current Visit: Yes Status: Acute Code(s): R56.9 - UNSPECIFIED CONVULSIONS SNOMED Code(s): 98012514 (2) Focal motor seizure Current Visit: Yes Status: Acute Code(s): G40.109 - LOCAL-REL SYMPTC EPI W SIMP PRT SEIZ,NOT NTRCT, W/O STAT EPI SNOMED Code(s): 924402314 (3) Hyponatremia Current Visit: Yes Status: Acute Code(s): E87.1 - HYPO-OSMOLALITY AND HYPONATREMIA SNOMED Code(s): 69099282 (4) Alcohol abuse Current Visit: Yes Status: Acute Code(s): F10.10 - ALCOHOL ABUSE, UNCOMPLICATED SNOMED Code(s): 24249979 Plan: This patient is a 47-year-old right-handed white male who was admitted to the emergency room yesterday after being found at home having generalized tonic- clonic seizure. He was intubated on the scene and brought into the emergency room for further evaluation. He was seen in the ER by Dr. Freeman. He was sent for a computed tomography scan of the brain the results of which are noted above. CAT scan of the brain revealed cerebral atrophy with no acute intracranial abnormality. Patient continued to have seizure-like activity in the ER and was loaded with IV Keppra. Laboratory testing revealed him to have severe hyponatremia with a serum sodium in the ER of 112. He was started on 3% normal saline and intubated and transferred to the intensive care unit. Patient was seen in the ICU this morning and his serum sodium level is 117. He is to have an EEG today for further evaluation. We will obtain a Keppra blood level for this patient and adjust his dose as needed. His EEG will be reviewed later today. His overall prognosis at this time remains very guarded. Would continue with seizure precautions for this patient. He is to be maintained on Keppra 750 mg IV piggyback every 12 hours. Depending on his EEG results further recommendations will be given. This patient's overall prognosis at this time remains very guarded. Time with Patient: Greater than 30
[2018-02-05 08:32] LABS: Band Neutrophils % 7 %; Lymphocytes # (M) 0.39 k/uL (1.0-4.8); Monocytes # (M) 1.36 k/uL (0-1.0); Neutrophils % (M) 84 %; Nucleated Red Blood Cells 0 /100 WBC (0-0); Total Cells Counted 100
[2018-02-05 08:33] LABS: Toxic Granulation Present
[2018-02-05] MEDS: PANTOPRAZOLE 40 MG/10 ML VIAL IV SCH (09:07)
[2018-02-05] MEDS: ENOXAPARIN 40 MG/0.4 ML SYRINGE SQ SCH (09:08)
[2018-02-05 09:55] LABS: Blood Urea Nitrogen 13 mg/dL (9-20); Calcium 7.4 mg/dL (8.4-10.2); Carbon Dioxide 38 mmol/L (22-30); Glucose 105 mg/dL (74-99); Potassium 3.8 mmol/L (3.5-5.1)
[2018-02-05 09:56] LABS: Anion Gap 11 mmol/L
[2018-02-05 10:02] LABS: Chloride 69 mmol/L (98-107); Sodium 118 mmol/L (137-145)
[2018-02-05] MEDS: CHLORHEXIDINE GLUCONATE 15 ML CUP MUCOUS MEM SCH ×2 (10:14→20:14)
--- NOTE | 2018-02-05 10:41 | HP ---
HISTORY AND PHYSICAL DATE OF SERVICE: 02/04/2018 CHIEF COMPLAINT: Unresponsive. HISTORY OF PRESENT ILLNESS: This 47-year-old gentleman with a past medical history of no significant medical illnesses apparently, not being followed by any primary physician in the outpatient setting was taken to [facility] complaining of unresponsiveness. The significant other found the patient unresponsive in the bed and was having active tonic- clonic seizures and EMS was called and patient had IV access. Versed was given and subsequently the patient apparently seized for 30 minutes and the patient was taken to [facility] Emergency Room and was admitted for further evaluation and treatment. The patient was intubated, mechanically intubated and monitored in ICU at this time. The patient had tonic posture on the left side. Otherwise a detailed history could not be taken from the patient because the patient is mechanically ventilated and sedated. On arrival the patient had severe hyponatremia, 3% saline was given. Potassium is 2.1, is being corrected at this time. Otherwise osmolality 236. Nephrology has been consulted as well as Neurology and Dr. Spence for ICU management. There is no history of any obvious trauma. PAST MEDICAL HISTORY: No history of cardiorespiratory illness. MEDICATIONS: 1. Potassium 90 mg. 2. Multivitamins. 3. Magnesium 1 tablet. 4. Grape seed extract 1 tablet p.o. daily. ALLERGIES: None. Family history, social history and review of systems could not be taken. Per chart: No history of smoking. Drug screen shows less than 10 alcohol and negative urine screen. PHYSICAL EXAM: The patient is mechanically ventilated and intubated. Vent settings are noted. Pulse is 87, blood pressure 120/80, respirations 16, temperature 100.6, pulse ox 100% on mechanical ventilation. HEENT: Conjunctivae normal. Oral mucosa moist. Neck is no jugular venous distention. No carotid bruit. No lymph node enlargement. CARDIOVASCULAR: S1, S2. RESPIRATORY: Breath sounds diminished in the bases. A few scattered rhonchi and crackles. Expiratory wheezing. ABDOMEN: Soft, nontender. No guarding. No rigidity. No mass palpable. LEGS: No edema. NERVOUS SYSTEM: Unresponsive. Conjugate gaze deviation to the left and as well as some left contractures also. Dystonic posturing also on the left upper limb also present. SKIN: No ulcers, rash, bleeding. LYMPHATICS: No lymphadenopathy in the neck, axillae, groin. JOINTS: No active deforming arthropathy. LABS: WBC 9.2, hemoglobin is 14.4 and sodium 117. Creatinine is 2.1. CBC was noted. ASSESSMENT: 1. Possible status epilepticus with acute respiratory failure on mechanical ventilation. 2. Rule out focal seizures. 3. Fever possible aspiration pneumonia. 4. Severe hyponatremia. 5. Severe hypokalemia. 6. Increased random blood sugar. 7. FULL CODE. RECOMMENDATIONS AND DISCUSSION: This 47-year-old gentleman who presented with multiple complex medical issues. Will monitor the patient closely. Continue the current management and symptomatic treatment. Continue with mechanical ventilation. Continue with 3% saline and p.r.n. Ativan. Neurology evaluation. Keppra has been initiated. We will continue Keppra. DVT prophylaxis. Broad-spectrum IV antibiotics. We will initiate Zosyn. Otherwise, prognosis guarded because of multiple complex medical issues and further recommendations to follow. I discussed with staff. The possible underlying alcohol is also a likely possibility. CT scan as mentioned did not show any acute abnormality except some atrophy. MMODL / IJN: [id number] /
--- NOTE | 2018-02-05 12:10 | P.CNPUL ---
History of Present Illness Consult date: 02/05/18 Requesting physician: Jonatan Dumont Reason for consult: other (Status epilepticus hypornatremia and acute respiratory failure) Chief complaint: Seizure History of present illness: This is a 47-year-old white male with history of alcoholism, patient has been complaining of multiple GI symptoms mostly nausea and vomiting for the last few days. Patient was found by his girlfriend having active tonic-clonic seizure and 911 was immediately called. EMS arrived, patient was noted to have a generalized tonic-clonic seizure. IV access was established, patient was given Ativan and Versed, seizure did not seem to stop. Apparently patient went on to continue seizing for about 30 minutes, and upon arrival to the ER, patient was still in status epilepticus. Patient was intubated by the ER physician, CT of the brain showed no significant abnormality, however his serum sodium came back quite low at 112. Patient was placed on hypertonic saline overnight, and his sodium went up from last night until early this morning up to 117. His 3% saline was discontinued, patient was seen by neurology on consultation and he was placed on more seizure medications. Seizures were finally controlled, patient is now on propofol drip, he is also on Keppra, and he is on mechanical ventilation. Considering his admission to the ICU on mechanical ventilation, I was asked to see him on consultation. Patient is fully sedated at this point, and some of the information I obtained was from his mother who has been concerned about him and about the fact that he hasn't been eating and drinking much in spite of his chronic nausea vomiting and at times diarrhea. Presently patient is on mechanical ventilation, he is on tidal volume of 450 assist- control rate of 16 FiO2 of 50% and PEEP of 5. ABG this morning showed a pO2 of 76 pCO2 of 46 pH of 7.54. His sodium is up to 118 chloride is 69 BUN is 13 creatinine 0.45. Serum osmolality on admission was 236, urine osmolality was 407. And his urine sodium was 12 toxic screen was negative. And his serum alcohol was less than 10. Chest x-ray showed no active pulmonary disease, however considering the patient had a prolonged seizure and status epilepticus, he was placed empirically on Zosyn for presumptive aspiration. Review of Systems Review of systems could not be obtained, but according to his mother the patient has been concerned recently about intermittent episodes of nausea vomiting diarrhea, and has also been concerned about his blood pressure. According to her the patient is a heavy drinker, and intermittently he was drinking 4 days but he would stop and go back again drinking for few days and has been doing this for quite some time. ROS unobtainable: due to endotracheal tube Past Medical History Past Medical History: No Reported History Additional Past Medical History / Comment(s): alcoholism History of Any Multi-Drug Resistant Organisms: None Reported Past Surgical History: No Surgical Hx Reported Past Anesthesia/Blood Transfusion Reactions: No Reported Reaction Past Psychological History: No Psychological Hx Reported Smoking Status: Never smoker Past Alcohol Use History: None Reported Past Drug Use History: None Reported - Past Family History Father Family Medical History: Cancer Additional Family Medical History / Comment(s): lung cancer and agent orange exposure. Mother Family Medical History: No Reported History Medications and Allergies Home Medications Medication Instructions Recorded Confirmed Type Grape Seed Extract 1 tab PO DAILY 02/04/18 02/04/18 History Magnesium(Unknown Dose) 1 tab PO DAILY 02/04/18 02/04/18 History Multivitamins, Thera [Multivitamin 1 tab PO DAILY 02/04/18 02/04/18 History (formulary)] Potassium 99 mg PO DAILY 02/04/18 02/04/18 History Allergies Allergy/AdvReac Type Severity Reaction Status Date / Time No Known Allergies Allergy Unverified 02/04/18 18:31 Physical Exam Vitals: Vital Signs Temp Pulse Resp BP Pulse Ox 02/05/18 11:00 93 20 103/75 94 L 02/05/18 10:00 90 16 103/72 99 02/05/18 09:30 94 18 112/75 96 02/05/18 09:00 88 18 107/71 98 02/05/18 08:30 92 20 114/72 98 02/05/18 08:00 98.9 F 96 20 118/75 97 02/05/18 07:30 96 20 118/74 97 02/05/18 07:00 98 18 114/76 95 02/05/18 06:30 101 H 21 123/76 98 02/05/18 06:00 94 18 117/76 98 02/05/18 05:30 93 18 118/74 98 02/05/18 05:00 96 18 115/76 98 02/05/18 04:30 97 19 124/77 99 02/05/18 04:00 98.8 F 95 20 108/74 100 02/05/18 03:30 99 31 H 123/72 100 02/05/18 03:00 113 H 18 123/72 100 02/05/18 02:30 101 H 21 118/74 99 02/05/18 02:00 103 H 22 111/76 99 02/05/18 01:30 103 H 18 118/82 97 02/05/18 01:00 99.8 F H 102 H 16 114/79 100 02/05/18 00:30 101 H 25 H 118/72 100 02/05/18 00:00 95 16 114/71 100 02/04/18 23:30 95 16 108/69 100 02/04/18 23:00 95 16 100 02/04/18 22:30 95 16 115/72 100 02/04/18 22:00 98 17 115/72 02/04/18 21:47 95 16 02/04/18 21:32 100.6 F H 87 16 125/80 100 02/04/18 21:00 100.2 F H 95 18 123/80 98 02/04/18 20:00 100.6 F H 90 16 121/75 100 02/04/18 19:00 100.4 F H 92 14 113/72 100 02/04/18 18:00 100.9 F H 94 18 121/77 100 02/04/18 17:00 101.8 F H 92 16 130/78 99 02/04/18 16:34 100.8 F H 110 H 16 146/65 99 Intake and Output 02/04/18 02/05/18 02/05/18 22:59 06:59 14:59 Intake Total 2959.091 359.230 Output Total 575 750 180 Balance -575 2209.091 179.230 Intake: IV 2830 300.0 Piperacillin-Tazobactam 3 50 50.0 .375 gm In Dextrose/Water 1 50ml.bag @ 12.5 mls/hr IVPB Q8HR [facility] Rx#: [id number] Potassium Chloride 10 meq 400 In Water For Injection 1 100ml.bag @ 100 mls/hr IVPB ONCE ST[facility] Rx#: [id number] Potassium Phosphate 10 125 250 mmol In Sodium Chloride 0 .9% 250 ml @ 125 mls/hr IV Q2H [facility] Rx#:[id number] Sodium Chloride 0.45% 1, 225 000 ml @ 75 mls/hr IV . [id number] Rx#:[id number] Sodium Chloride 0.9% 1, 2000 000 ml @ 999 mls/hr IV . Q1H1M [facility] Rx#:[id number] Sodium Chloride 3%( 30 Hypertonic) 500 ml @ 30 mls/hr IV .[id number] [facility] Rx #:[id number] Intake, IV Titration 79.091 59.230 Amount Propofol 1,000 mg In 79.091 Empty Bag 1 bag @ Titrate IV .Q0M [facility] Rx#: [id number] Propofol 1,000 mg In 59.230 Empty Bag 1 bag @ Titrate IV .Q0M [facility] Rx#: [id number] Tube Feeding 50 Output: Urine 575 750 180 Other: Voiding Method Indwelling Catheter Indwelling Catheter Indwelling Catheter Weight 57.1 kg 56.5 kg 56.5 kg Physical Exam: Revealed a 47-year-old white male on mechanical ventilation, sedated, in no distress. Head: Atraumatic, normocephalic. Endotracheal tube and nasogastric tube are intact. HEENT:[Neck is supple.] [No neck masses.] [No thyromegaly.] [No JVD.] Chest: [Clear throughout, no crackles, no rhonchi, no wheezes.] Cardiac Exam: [Normal S1 and S2, no S3 gallop, no murmur.] Abdomen: [Soft, nontender, no megaly, no rebound, no guarding, normal bowel sounds.] Extremities: [No clubbing, no edema, no cyanosis.] Neurological Exam: Cannot be assessed, patient is fully sedated. Psychiatric: Could not be assessed. Lymphatics: No lymphadenopathy Skin: No rashes. Results - Laboratory Findings CBC and BMP: 02/05/18 04:11 02/05/18 09:20 ABG ABG pH 7.54 (7.35-7.45) H 02/05/18 07:13 ABG pCO2 46 mmHg (35-45) H 02/05/18 07:13 ABG pO2 76 mmHg (83-108) L 02/05/18 07:13 ABG O2 Saturation 96.7 % (94-97) 02/05/18 07:13 Abnormal lab findings: Abnormal Labs 02/04/18 02/04/18 02/04/18 16:58 16:58 16:58 WBC RBC 4.23 L Hgb Hct 38.8 L MCHC 37.2 H Neutrophils # 8.8 H Neutrophils # (Manual) Lymphocytes # 0.2 L Lymphocytes # (Manual) Monocytes # (Manual) ABG pH ABG pCO2 ABG pO2 ABG HCO3 ABG Total CO2 ABG O2 Saturation Sodium 112 L* Potassium 2.1 L* Chloride <50 L* Carbon Dioxide 42 H* Creatinine Glucose 159 H POC Glucose (mg/dL) Osmolality 236 L* Calcium Phosphorus AST 96 H ALT 80 H Alkaline Phosphatase 182 H Creatine Kinase Urine Protein 2+ H Urine Ketones 1+ H Urine Blood Small H Urine Bacteria Rare H Hyaline Casts 30 H Urine Mucus Rare H Ur Random Sodium 02/04/18 02/04/18 02/04/18 16:58 17:34 21:47 WBC RBC Hgb Hct MCHC Neutrophils # Neutrophils # (Manual) Lymphocytes # Lymphocytes # (Manual) Monocytes # (Manual) ABG pH 7.48 H ABG pCO2 61 H ABG pO2 >400 H ABG HCO3 45 H* ABG Total CO2 47 H ABG O2 Saturation 100.0 H Sodium Potassium Chloride Carbon Dioxide Creatinine Glucose POC Glucose (mg/dL) 116 H Osmolality Calcium Phosphorus AST ALT Alkaline Phosphatase Creatine Kinase Urine Protein Urine Ketones Urine Blood Urine Bacteria Hyaline Casts Urine Mucus Ur Random Sodium 12 L 02/04/18 02/05/18 02/05/18 21:56 01:56 04:11 WBC 19.4 H RBC 3.70 L Hgb 12.8 L Hct 35.3 L MCHC Neutrophils # Neutrophils # (Manual) 17.60 H Lymphocytes # Lymphocytes # (Manual) 0.39 L Monocytes # (Manual) 1.36 H ABG pH ABG pCO2 ABG pO2 ABG HCO3 ABG Total CO2 ABG O2 Saturation Sodium 117 L* 116 L* Potassium 2.1 L* 3.3 L Chloride 67 L* 67 L* Carbon Dioxide 35 H 37 H Creatinine 0.50 L 0.40 L Glucose 107 H 113 H POC Glucose (mg/dL) Osmolality Calcium 7.1 L 7.4 L Phosphorus AST ALT Alkaline Phosphatase Creatine Kinase Urine Protein Urine Ketones Urine Blood Urine Bacteria Hyaline Casts Urine Mucus Ur Random Sodium 02/05/18 02/05/1818 04:11 07:13 07:45 WBC RBC Hgb Hct MCHC Neutrophils # Neutrophils # (Manual) Lymphocytes # Lymphocytes # (Manual) Monocytes # (Manual) ABG pH 7.54 H ABG pCO2 46 H ABG pO2 76 L ABG HCO3 40 H* ABG Total CO2 41 H ABG O2 Saturation Sodium 117 L* Potassium 3.0 L* Chloride 68 L* Carbon Dioxide 36 H Creatinine 0.50 L Glucose 117 H POC Glucose (mg/dL) Osmolality Calcium 7.5 L Phosphorus 2.0 L AST ALT Alkaline Phosphatase Creatine Kinase 273 H Urine Protein Urine Ketones Urine Blood Urine Bacteria Hyaline Casts Urine Mucus Ur Random Sodium 02/05/18 09:20 WBC RBC Hgb Hct MCHC Neutrophils # Neutrophils # (Manual) Lymphocytes # Lymphocytes # (Manual) Monocytes # (Manual) ABG pH ABG pCO2 ABG pO2 ABG HCO3 ABG Total CO2 ABG O2 Saturation Sodium 118 L* Potassium Chloride 69 L* Carbon Dioxide 38 H Creatinine 0.45 L Glucose 105 H POC Glucose (mg/dL) Osmolality Calcium 7.4 L Phosphorus AST ALT Alkaline Phosphatase Creatine Kinase Urine Protein Urine Ketones Urine Blood Urine Bacteria Hyaline Casts Urine Mucus Ur Random Sodium - Diagnostic Findings Chest x-ray: image reviewed (No evidence of active disease.) Assessment and Plan Assessment: Impression: 1 acute hypoxic respiratory failure secondary to status epilepticus and a new onset seizure. 2 acute hypovolemic hyponatremia, most likely the main contributing factor to his new onset seizure. 3 recent episode of nausea vomiting and diarrhea/acute gastroenteritis, exact etiology is not clear. 4 alcoholism and alcohol abuse. 5 severe hypokalemia again likely secondary to nausea vomiting and diarrhea. 6 acute contraction metabolic Recommendation: Continue mechanical ventilation, we will address nutritional support, adjust ventilator settings accordingly. Continue seizure medications and seizure precautions, patient is being followed by neurology. alkalosis continue Protonix, and continue Zosyn. Continue DVT prophylaxis/Lovenox. Patient is not ready for weaning, I discussed his condition with his mother at bedside, plan to keep him on mechanical ventilation today, monitor sodium closely and address accordingly. We'll continue to follow. Critical care time is 40 minutes. Time with Patient: Greater than 30
[2018-02-05 12:23] LABS: Hemoglobin A1C 5.8 % (4.0-6.0)
[2018-02-05 15:14] LABS: Magnesium 1.8 mg/dL (1.6-2.3)
[2018-02-05 15:24] LABS: Potassium 2.9 mmol/L (3.5-5.1)
[2018-02-05] MEDS: IPRATROPIUM-ALBUTEROL 3 ML NEB INHALATION SCH ×2 (15:33→19:18)
--- NOTE | 2018-02-05 15:56 | PN ---
PROGRESS NOTE DATE OF SERVICE: 02/05/2018 This 47-year-old gentleman who was admitted with status epilepticus, also had possibly an event of focalizations seizures also. The patient has been found after several hours. The patient started having significant history of alcohol intake and abuse also. The patient has severe hyponatremia, hypokalemia, present on admission. sodium is improving. The patient is mechanically sedated. Patient also had features of aspiration pneumonia. Patient on broad spectrum IV antibiotics. Dr. Spenec is following the patient along with Nephrology and multiple other consultants. Neurology is also following the patient. CT scan is noted. PAST MEDICAL HISTORY: Reviewed. REVIEW OF SYSTEMS: Could not be taken because the patient mechanically ventilated and sedated. CURRENT MEDICATIONS: Noted: 1. DuoNeb q.i.d. and p.r.n. 3. Lovenox 40 subcutaneously. 4. Ativan 1 mg p.r.n. 5. Protonix. 6. Zosyn IV. PHYSICAL EXAM: The patient mechanically sedated and ventilation settings are noted. Pulse 93, blood pressure 98/66, respirations 22, temperature 98.9, pulse ox 100% on 50% FiO2 on mechanical ventilation. HEENT: Conjunctivae normal. No gaze deviation noted. Pupils are 2 mm. Cardiovascular: S1-S2, no S3, no S4. RESPIRATORY: Breath sounds diminished in the bases. A few scattered rhonchi and crackles. ABDOMEN: Soft, nontender. No mass palpable. Legs: No edema and no swelling. CENTRAL NERVOUS SYSTEM: The patient is mechanically sedated. SKIN: No ulcer, rash, bleeding. LAB STUDIES: WBC 19.5, hemoglobin 12.8, otherwise ABGs 7.54, pH, sodium is 118. ASSESSMENT: 1. Status epilepticus with acute respiratory failure hypoxic on mechanical ventilation. 2. Change in mental status, metabolic encephalopathy secondary to status epilepticus. 3. Rule out focal seizures involving the right hemisphere. 4. Fever possible aspiration pneumonia. 5. Severe hyponatremia. 6. Severe hypokalemia. 7. History of possibly EtOH. 8. Increased random blood sugars. 9. FULL CODE. RECOMMENDATIONS AND DISCUSSION: Recommend to continue current medications, management and symptomatic treatment. Otherwise, at this time, I would recommend broad-spectrum IV antibiotics. Continue with the Keppra loading. Continue mechanical ventilation. Guarded prognosis because of multiple complex medical issues. We will monitor the patient closely with multiple consultants. Monitor sodium closely. Prognosis guarded. Further recommendations to follow. MMODL / IJN: [id number] / MTDD
[2018-02-05] MEDS ORDERED: MAGNESIUM SULFATE-D5W PMX 1 GM in DEXTROSE/WATER 1 100ML.BAG IVPB ONE (16:00)
[2018-02-05 20:54] LABS: Potassium 3.5 mmol/L (3.5-5.1)
--- NOTE | 2018-02-05 21:23 | EEG ---
ELECTROENCEPHALOGRAM REPORT DATE OF EE02/05/2018. REFERRING PHYSICIAN: Dr. Dumont. CONSULTING INTERPRETING PHYSICIAN: Dr. Jocelyn Ellis MD ELECTROENCEPHALOGRAPHIC EXAMINATION REPORT: INDICATION FOR EXAMINATION: This patient is a 47-year-old male, admitted with severe hyponatremia and new onset seizures. AGE: [age]. EEG FINDINGS: A routine 21 channel awake digital EEG recording was accomplished utilizing the 10-20 international system with bipolar and referential montages. The background activity in the most alert resting state consists of a low to medium amplitude, fairly well- developed and well sustained 6-7 Hz activity over the posterior head regions. This posterior rhythm attenuates minimally to eye opening. There is a small amount of low amplitude 18-20 Hz beta activity seen maximally over the anterior head regions. Muscle and movement artifact was observed on a few occasions during the tracing. Hyperventilation was not performed. Photic stimulation at flash frequencies of 2-30 Hz produced a minimal occipital driving response. No epileptiform discharges were seen. IMPRESSION: This EEG is moderately abnormal in a diffuse fashion due to slowing of the EEG background. The EEG failed to reveal any focal, lateralized, or epileptiform abnormalities. If clinically indicated a followup EEG is recommended. Clinical correlation is recommended. MMODL / IJN: [id number] /
[2018-02-05] MEDS ORDERED: SODIUM CHLORIDE 0.9% 1,000 ML IV SCH (21:30)
[2018-02-05] MEDS ORDERED: PROPOFOL 1,000 MG in EMPTY BAG 1 BAG IV SCH (22:00)
[2018-02-06] MEDS: PIPERACILLIN-TAZOBACTAM 3.375 GM in DEXTROSE/WATER 1 50ML.BAG IVPB SCH ×3 (04:36→15:17)
[2018-02-06 05:27] LABS: Anion Gap 9 mmol/L; Blood Urea Nitrogen 9 mg/dL (9-20); Calcium 8.3 mg/dL (8.4-10.2); Carbon Dioxide 38 mmol/L (22-30); Glucose 105 mg/dL (74-99); Magnesium 1.9 mg/dL (1.6-2.3); Phosphorus 1.8 mg/dL (2.5-4.5); Potassium 3.7 mmol/L (3.5-5.1)
[2018-02-06 05:32] LABS: Basophils % (A) 0 %; Eosinophils # (A) 0.1 k/uL (0-0.7); Eosinophils % (A) 1 %; HCT 32.6 % (39.0-53.0); HGB 11.5 gm/dL (13.0-17.5); Lymphocytes # (A) 0.7 k/uL (1.0-4.8); Lymphocytes % (A) 6 %; MCH 34.3 pg (25.0-35.0); MCHC 35.3 g/dL (31.0-37.0); MCV 97.3 fL (80.0-100.0); Mean Platelet Volume 7.2; Monocytes # (A) 0.7 k/uL (0-1.0); Monocytes % (A) 5 %; Neutrophils # (A) 10.8 k/uL (1.3-7.7); Neutrophils % (A) 87 %; Platelet Count 216 k/uL (150-450); RBC 3.35 m/uL (4.30-5.90); RDW 12.7 % (11.5-15.5); WBC 12.5 k/uL (3.8-10.6)
[2018-02-06 05:47] LABS: Potassium 3.5 mmol/L (3.5-5.1)
[2018-02-06 06:23] LABS: Chloride 73 mmol/L (98-107); Sodium 120 mmol/L (137-145)
[2018-02-06] MEDS ORDERED: POTASSIUM BICARBONATE/CIT AC 20 MEQ TABLET.EFF PO ONE (06:41)
[2018-02-06 07:13] LABS: ABG Base Excess 16.1 mmol/L; ABG HCO3 38 mmol/L (21-25); ABG Oxygen Saturation 96.8 % (94-97); ABG PCO2 43 mmHg (35-45); ABG PH 7.56 (7.35-7.45); ABG PO2 76 mmHg (83-108); ABG TCO2 40 mmol/L (19-24)
[2018-02-06] MEDS: MAGNESIUM SULFATE-D5W PMX 1 GM in DEXTROSE/WATER 1 100ML.BAG IVPB SCH ×2 (07:23→08:56)
--- NOTE | 2018-02-06 08:00 | XR ---
EXAMINATION TYPE: XR chest 1V portable DATE OF EXAM: 02/06/2018 COMPARISON: Prior chest 02/05/2018 HISTORY: Intubated TECHNIQUE: Single frontal view of the chest is obtained. FINDINGS: Endotracheal tube and NG tube are overlying appropriate positions. Minimal patchy basilar density is present, patient is rotated. No evident pneumothorax or pleural effusion. There are overly ing cardiac leads and tubing. Cardiac mediastinal silhouette, pulmonary vascularity and vahid are stab le accounting for differences in technique. IMPRESSION: There may be some basilar atelectasis, correlate to exclude pneumonia.
[2018-02-06] MEDS: PROPOFOL 1,000 MG in EMPTY BAG 1 BAG IV SCH (08:14)
[2018-02-06] MEDS: POTASSIUM PHOSPHATE 10 MMOL in SODIUM CHLORIDE 0.9% 250 ML IV SCH ×2 (08:15→09:35)
[2018-02-06] MEDS: SODIUM CHLORIDE 0.9% 1,000 ML IV SCH ×2 (08:20→20:35)
[2018-02-06] MEDS: levETIRAcetam IV 750 MG in SODIUM CHLORIDE 0.9% 100 ML IVPB SCH ×2 (08:24→20:34)
[2018-02-06] MEDS: IPRATROPIUM-ALBUTEROL 3 ML NEB INHALATION SCH ×4 (08:41→19:29)
[2018-02-06] MEDS: ENOXAPARIN 40 MG/0.4 ML SYRINGE SQ SCH (08:56)
[2018-02-06] MEDS: PANTOPRAZOLE 40 MG/10 ML VIAL IV SCH (08:56)
[2018-02-06] MEDS: CHLORHEXIDINE GLUCONATE 15 ML CUP MUCOUS MEM SCH ×2 (08:56→20:35)
--- NOTE | 2018-02-06 10:40 | P.PN ---
Subjective Patient is seen in follow-up for hyponatremia. Patient presented to the hospital after witnessed tonic-clonic seizure. Sodium was 112. He was started on 3% saline. Sodium did come up to 120 yesterday but then dropped to 118. Normal saline was started and the rate was increased to 75 mL an hour this morning. Patient's currently intubated. Sedation has been turned off and patient is quite agitated. Vital signs are stable. General: The patient appeared well nourished and normally developed. Quite agitated. HEENT: Head exam is unremarkable. Neck is without jugular venous distension. Intubated. LUNGS: Lungs are clear to auscultation and percussion. Breath sounds decreased. HEART: Rate and Rhythm are regular. First and second heart sounds normal. No murmurs, rubs or gallops. ABDOMEN: Abdominal exam reveals normal bowel sounds. Non-tender and non- distended. No evidence of peritonitis. EXTREMITITES: No clubbing, cyanosis, or edema. Objective - Vital Signs Vital signs: Vital Signs Temp 99 F 02/06/18 08:00 Pulse 88 02/06/18 10:00 Resp 19 02/06/18 10:00 BP 101/63 02/06/18 10:00 Pulse Ox 97 02/06/18 10:00 Intake & Output 02/05/18 02/06/18 02/06/18 18:59 06:59 18:59 Intake Total 372.032 1908.5 808.617 Output Total 359 640 212 Balance 264.830 472.5 596.617 Weight 56.5 kg Intake: IV 437.5 662.5 675.0 Magnesium Sulfate-D5w Pmx 100 200 1 gm In Dextrose/Water 1 100ml.bag @ 100 mls/hr IVPB ONCE ONE Rx#: [id number] Piperacillin-Tazobactam 3 87.5 62.5 25.0 .375 gm In Dextrose/Water 1 50ml.bag @ 12.5 mls/hr IVPB Q8HR [facility] Rx#: [id number] Potassium Phosphate 10 250 mmol In Sodium Chloride 0 .9% 250 ml @ 125 mls/hr IV Q2H [facility] Rx#:[id number] Potassium Phosphate 10 250 mmol In Sodium Chloride 0 .9% 250 ml @ 125 mls/hr IV Q2H [facility] Rx#:[id number] Sodium Chloride 0.9% 1, 500 100 000 ml @ 50 mls/hr IV . Q20H [facility] Rx#:[id number] levETIRAcetam IV 750 mg 100 100 In Sodium Chloride 0.9% 100 ml @ 400 mls/hr IVPB Q12H [facility] Rx#:[id number] Intake, IV Titration 126.330 200 23.617 Amount Propofol 1,000 mg In 126.330 200 23.617 Empty Bag 1 bag @ Titrate IV .Q0M [facility] Rx#: [id number] Tube Feeding 30 160 80 Other 30 90 30 Output: Urine 359 640 212 Other: Voiding Method Indwelling Catheter Indwelling Catheter - Labs CBC & Chem 7: 02/06/18 04:29 02/06/18 04:29 Labs: Abnormal Lab Results - Last 24 Hours (Table) 02/05/18 02/05/18 02/06/18 Range/Units 14:31 20:17 01:00 WBC (3.8-10.6) k/uL RBC (4.30-5.90) m/uL Hgb (13.0-17.5) gm/dL Hct (39.0-53.0) % Neutrophils # (1.3-7.7) k/uL Lymphocytes # (1.0-4.8) k/uL Sodium 120 L* 118 L* 121 L (137-145) mmol/L Potassium 2.9 L* (3.5-5.1) mmol/L Chloride (98-107) mmol/L Carbon Dioxide (22-30) mmol/L Creatinine (0.66-1.25) mg/dL Glucose (74-99) mg/dL Calcium (8.4-10.2) mg/dL Phosphorus (2.5-4.5) mg/dL 02/06/18 02/06/18 Range/Units 04:29 04:29 WBC 12.5 H (3.8-10.6) k/uL RBC 3.35 L (4.30-5.90) m/uL Hgb 11.5 L (13.0-17.5) gm/dL Hct 32.6 L (39.0-53.0) % Neutrophils # 10.8 H (1.3-7.7) k/uL Lymphocytes # 0.7 L (1.0-4.8) k/uL Sodium 120 L* (137-145) mmol/L Potassium (3.5-5.1) mmol/L Chloride 73 L* (98-107) mmol/L Carbon Dioxide 38 H (22-30) mmol/L Creatinine 0.50 L (0.66-1.25) mg/dL Glucose 105 H (74-99) mg/dL Calcium 8.3 L (8.4-10.2) mg/dL Phosphorus 1.8 L (2.5-4.5) mg/dL Microbiology - Last 24 Hours (Table) 02/05/18 03:23 Urine Culture - Final Urine,Catheterized 02/04/18 21:27 Gram Stain - Preliminary Sputum Sputum Culture - Preliminary 02/04/18 17:18 Blood Culture - Preliminary Blood No Growth after 24 hours Assessment and Plan Plan: Assessment: 1. Symptomatic hypoosmolar hyponatremia status post 3%. Sodium level of to 120 this morning. Urine sodium noted to be low sodium appears to be hypovolemic hyponatremia. 2. Seizure secondary to hyponatremia. Neurology following. 3. Severe hypokalemia. Etiology unclear. Unsure if patient was having any vomiting or diarrhea. Improved post replacement. 4. Metabolic alkalosis secondary to hypokalemia and hypochloremia leading to impaired bicarb secretion. 5. Hypophosphatemia from poor oral intake likely. Plan: Continue normal saline at 75 mL an hour. Goal rate of correction 6-8 mEq per 24 hours. Continue with magnesium, potassium and phosphorus replacement.
[2018-02-06] MEDS: LORazepam 2 MG/ML INJ IV PRN ×3 (10:42→21:37)
--- NOTE | 2018-02-06 13:59 | P.PN ---
Subjective Progress Note Date: 02/06/18 Principal diagnosis: Acute respiratory failure, status epilepticus, and hyponatremia. This is a 47-year-old white male with history of alcoholism, patient has been complaining of multiple GI symptoms mostly nausea and vomiting for the last few days. Patient was found by his girlfriend having active tonic-clonic seizure and 911 was immediately called. EMS arrived, patient was noted to have a generalized tonic-clonic seizure. IV access was established, patient was given Ativan and Versed, seizure did not seem to stop. Apparently patient went on to continue seizing for about 30 minutes, and upon arrival to the ER, patient was still in status epilepticus. Patient was intubated by the ER physician, CT of the brain showed no significant abnormality, however his serum sodium came back quite low at 112. Patient was placed on hypertonic saline overnight, and his sodium went up from last night until early this morning up to 117. His 3% saline was discontinued, patient was seen by neurology on consultation and he was placed on more seizure medications. Seizures were finally controlled, patient is now on propofol drip, he is also on Keppra, and he is on mechanical ventilation. Considering his admission to the ICU on mechanical ventilation, I was asked to see him on consultation. Patient is fully sedated at this point, and some of the information I obtained was from his mother who has been concerned about him and about the fact that he hasn't been eating and drinking much in spite of his chronic nausea vomiting and at times diarrhea. Presently patient is on mechanical ventilation, he is on tidal volume of 450 assist- control rate of 16 FiO2 of 50% and PEEP of 5. ABG this morning showed a pO2 of 76 pCO2 of 46 pH of 7.54. His sodium is up to 118 chloride is 69 BUN is 13 creatinine 0.45. Serum osmolality on admission was 236, urine osmolality was 407. And his urine sodium was 12 toxic screen was negative. And his serum alcohol was less than 10. Chest x-ray showed no active pulmonary disease, however considering the patient had a prolonged seizure and status epilepticus, he was placed empirically on Zosyn for presumptive aspiration. Patient was reevaluated today on 02/06/2018, remains on mechanical ventilation, his ventilator settings are tidal volume of 450 assist-control rate 16 FiO2 50% and PEEP of 5. Presently on 0.9 normal saline at 75 mL per hour. Sodium today is up to 121. Potassium is normal ABG showed a pO2 of 76 pCO2 of 43 pH of 7.56. Chest x-ray was reviewed, minimal basilar atelectasis is noted, possibility of aspiration pneumonia is not entirely ruled out, patient remains empirically on antibiotics. WBC count is 12.5 hemoglobin is 11.5. Renal profile is normal. Patient is not following any instructions, off propofol, continues to have some myoclonic jerks noted in the left upper extremity and left lower extremity. Been addressed by neurology, did not feel to be seizure related. I was able to discontinue propofol, and I plan to manage the patient with Ativan as needed. In the meantime he is still on antiseizure medications and treatment. Objective - Vital Signs Vital signs: Vital Signs Temp 99.3 F 02/06/18 12:00 Pulse 98 02/06/18 13:00 Resp 18 02/06/18 13:00 BP 116/77 02/06/18 13:00 Pulse Ox 98 02/06/18 13:00 Intake & Output 02/05/18 02/06/18 02/06/18 18:59 06:59 18:59 Intake Total 690.508 1043.5 1283.617 Output Total 359 640 364 Balance 264.830 472.5 919.617 Weight 56.5 kg 57.4 kg Intake: IV 437.5 662.5 1100.0 0.9 at 75 150 Magnesium Sulfate-D5w Pmx 100 200 1 gm In Dextrose/Water 1 100ml.bag @ 100 mls/hr IVPB ONCE ONE Rx#: [id number] Piperacillin-Tazobactam 3 87.5 62.5 50.0 .375 gm In Dextrose/Water 1 50ml.bag @ 12.5 mls/hr IVPB Q8HR [facility] Rx#: [id number] Potassium Phosphate 10 250 mmol In Sodium Chloride 0 .9% 250 ml @ 125 mls/hr IV Q2H [facility] Rx#:[id number] Potassium Phosphate 10 500 mmol In Sodium Chloride 0 .9% 250 ml @ 125 mls/hr IV Q2H [facility] Rx#:[id number] Sodium Chloride 0.9% 1, 500 100 000 ml @ 50 mls/hr IV . Q20H [facility] Rx#:[id number] levETIRAcetam IV 750 mg 100 100 In Sodium Chloride 0.9% 100 ml @ 400 mls/hr IVPB Q12H [facility] Rx#:[id number] Intake, IV Titration 126.330 200 23.617 Amount Propofol 1,000 mg In 126.330 200 23.617 Empty Bag 1 bag @ Titrate IV .Q0M [facility] Rx#: [id number] Tube Feeding 30 160 100 Other 30 90 60 Output: Urine 359 640 364 Other: Voiding Method Indwelling Catheter Indwelling Catheter Indwelling Catheter # Bowel Movements 1 - Exam Physical Exam: Revealed a 47-year-old white male on mechanical ventilation, off propofol, myoclonic jerks noted in left upper and lower extremities. Head: Atraumatic, normocephalic. Endotracheal tube and nasogastric tube are intact. HEENT:[Neck is supple.] [No neck masses.] [No thyromegaly.] [No JVD.] Chest: [Minimal fine crackles at the bases.] No rhonchi, no wheezes, no chest wall tenderness. Cardiac Exam: [Normal S1 and S2, no S3 gallop, no murmur.] Abdomen: [Soft, nontender, no megaly, no rebound, no guarding, normal bowel sounds.] Extremities: [No clubbing, no edema, no cyanosis.] Neurological Exam: Off propofol, patient is opening eyes, but not following any other instructions. Psychiatric: Could not be assessed. Lymphatics: No lymphadenopathy Skin: No rashes. - Labs CBC & Chem 7: 02/06/18 04:29 02/06/18 10:27 Labs: Abnormal Lab Results - Last 24 Hours (Table) 02/05/18 02/05/18 02/06/18 Range/Units 14:31 20:17 01:00 WBC (3.8-10.6) k/uL RBC (4.30-5.90) m/uL Hgb (13.0-17.5) gm/dL Hct (39.0-53.0) % Neutrophils # (1.3-7.7) k/uL Lymphocytes # (1.0-4.8) k/uL ABG pH (7.35-7.45) ABG pO2 (83-108) mmHg ABG HCO3 (21-25) mmol/L ABG Total CO2 (19-24) mmol/L Sodium 120 L* 118 L* 121 L (137-145) mmol/L Potassium 2.9 L* (3.5-5.1) mmol/L Chloride (98-107) mmol/L Carbon Dioxide (22-30) mmol/L Creatinine (0.66-1.25) mg/dL Glucose (74-99) mg/dL Calcium (8.4-10.2) mg/dL Phosphorus (2.5-4.5) mg/dL 02/06/18 02/06/18 02/06/18 Range/Units 04:29 04:29 07:11 WBC 12.5 H (3.8-10.6) k/uL RBC 3.35 L (4.30-5.90) m/uL Hgb 11.5 L (13.0-17.5) gm/dL Hct 32.6 L (39.0-53.0) % Neutrophils # 10.8 H (1.3-7.7) k/uL Lymphocytes # 0.7 L (1.0-4.8) k/uL ABG pH 7.56 H (7.35-7.45) ABG pO2 76 L (83-108) mmHg ABG HCO3 38 H (21-25) mmol/L ABG Total CO2 40 H (19-24) mmol/L Sodium 120 L* (137-145) mmol/L Potassium (3.5-5.1) mmol/L Chloride 73 L* (98-107) mmol/L Carbon Dioxide 38 H (22-30) mmol/L Creatinine 0.50 L (0.66-1.25) mg/dL Glucose 105 H (74-99) mg/dL Calcium 8.3 L (8.4-10.2) mg/dL Phosphorus 1.8 L (2.5-4.5) mg/dL 02/06/18 Range/Units 10:27 WBC (3.8-10.6) k/uL RBC (4.30-5.90) m/uL Hgb (13.0-17.5) gm/dL Hct (39.0-53.0) % Neutrophils # (1.3-7.7) k/uL Lymphocytes # (1.0-4.8) k/uL ABG pH (7.35-7.45) ABG pO2 (83-108) mmHg ABG HCO3 (21-25) mmol/L ABG Total CO2 (19-24) mmol/L Sodium 121 L (137-145) mmol/L Potassium (3.5-5.1) mmol/L Chloride (98-107) mmol/L Carbon Dioxide (22-30) mmol/L Creatinine (0.66-1.25) mg/dL Glucose (74-99) mg/dL Calcium (8.4-10.2) mg/dL Phosphorus (2.5-4.5) mg/dL Microbiology - Last 24 Hours (Table) 02/05/18 03:23 Urine Culture - Final Urine,Catheterized 02/04/18 21:27 Gram Stain - Preliminary Sputum Sputum Culture - Preliminary 02/04/18 17:18 Blood Culture - Preliminary Blood No Growth after 24 hours Assessment and Plan Assessment: Impression: 1 acute hypoxic respiratory failure secondary to status epilepticus and a new onset seizure. 2 acute hypovolemic hyponatremia, most likely the main contributing factor to his new onset seizure. 3 recent episode of nausea vomiting and diarrhea/acute gastroenteritis, exact etiology is not clear. Patient presented with profound hypovolemia. 4 alcoholism and alcohol abuse. 5 severe hypokalemia again likely secondary to nausea vomiting and diarrhea. 6 acute contraction metabolic alkalosis. Recommendation: Continue mechanical ventilation, continue seizure precautions, GI and DVT prophylaxis, nutritional support, will discontinue propofol, use Ativan as needed, continue to correct the hyponatremia with 0.9 normal saline at 75 mL per hour, cautious correction will be done, and may or may not consider spontaneous breathing trial later today that we will all depend on his overall mental status. At this point the patient is not ready for any spontaneous. Trials considering his mental status and slow neurological recovery from his recent episode of status epilepticus. Patient may have sustained some acute brain injury, being followed by neurology. Critical care time is 34 minutes. Time with Patient: Greater than 30
--- NOTE | 2018-02-06 14:52 | CT ---
EXAMINATION TYPE: CT brain wo con DATE OF EXAM: 02/06/2018 COMPARISON: 02/04/2018 HISTORY: Altered mental status. CT DLP: 1235.[address] of the brain was performed. The ventricles, basal cisterns and sulci overlying the cerebral convexities demonstrate mild cerebral atrophy. There is no evidence for intracranial hemorrhage or sulcal effacement. No mass effects are seen. Osseous calvarium is intact. Mucosal thickening left maxillary sinus. Endotracheal tube is partially imaged. If symptoms persist consider MRI as clinically warranted. IMPRESSION: 1. No acute intracranial process is seen at this time.
--- NOTE | 2018-02-06 15:00 | PN ---
PROGRESS NOTE DATE OF SERVICE: 02/06/2018 This is a 47-year-old gentleman was admitted with status epilepticus and as well as possibly focal seizures also had acute respiratory failure. Patient mechanically sedated. Patient possibly also had anoxic brain injury as well. Patient has severe hyponatremia and possibly underlying alcohol also. Patient monitored in ICU. Dr. Spence and Dr. Ayden Ellis is following the patient closely. The most recent EEG did not show any focal and lateralized seizures despite abnormal tremor-like movement of the left arm. PAST MEDICAL HISTORY: Reviewed. REVIEW OF SYMPTOMS: Could not be taken. CURRENT MEDICATIONS: 1. DuoNeb q.i.d. and p.r.n. 2. Peridex 15. 3. Lovenox 40 mg subcu daily. 4. Keppra 750 b.i.d. 5. Ativan 1 mg p.r.n. 6. Narcan 0.2 q.2h p.r.n. 7. Protonix 40 mg daily. 8. Zosyn 3.375 IV q.8h. 9. Propofol. PHYSICAL EXAM: GENERAL: The patient is mechanically ventilated and intubated, sedated. VITAL SIGNS: The pulse is 98, blood pressure 116/77, respiration 18, temperature 99.2, pulse ox 98% on 50% FiO2 mechanical ventilation, settings are noted. HEENT: Normal. Otherwise no gaze deviation. Oral mucosa moist. NECK: Neck is no jugular venous distention. No carotid bruit. NO lymph node enlargement. CARDIOVASCULAR SYSTEM: S1, S2. RESPIRATION: Breath sounds diminished in the bases. Few scattered rhonchi and crackles. ABDOMEN: Soft, nontender. Legs: No edema. No swelling. NERVOUS SYSTEM: Abnormal movements of the left arm tremor like twitching present. SKIN: No ulcers, rashes or bleeding. LAB STUDIES: WBC 12.2, hemoglobin 11.5 and sodium is 121. ASSESSMENT: 1. Acute hypoxic respiratory failure possibly secondary to seizures or anoxic brain injury on mechanical ventilation. 2. Change in mental status, metabolic encephalopathy, possibly secondary to hypoxia, multifactorial status epilepticus. 3. Rule out focal seizure involving the right hemisphere. 4. Fever aspiration pneumonia. 5. Severe hyponatremia. 6. Severe hypokalemia. 7. History of EtOH. 8. Increased random blood sugar. 9. FULL CODE. RECOMMENDATIONS AND DISCUSSION: Recommend to continue current medications, management and symptomatic treatment. Otherwise repeat lytes. Monitor closely. Nephrology following the patient closely. Sodium is improved to 121. The patient is currently on broad-spectrum IV antibiotics and as well as Keppra. Closely follow with Neurology. Repeat EEG. Repeat CAT scan. Prognosis extremely guarded because of multiple complex medical issues as detailed above. Discussed with the family, girlfriend and mother. Further recommendations to follow. MMODL / IJN: [id number] /
[2018-02-06 15:33] LABS: Potassium 3.2 mmol/L (3.5-5.1)
[2018-02-06] MEDS ORDERED: THIAMINE 100 MG/ML 2 ML VIAL IM STA (16:08)
[2018-02-06] MEDS ORDERED: FUROSEMIDE 10 MG/ML 4 ML VIAL IV STA (16:16)
[2018-02-06] MEDS: POTASSIUM BICARBONATE/CIT AC 20 MEQ TABLET.EFF NG-TUBE SCH ×2 (16:57→18:50)
[2018-02-06] MEDS: NICOTINE 21MG/24HR PATCH TRANSDERM SCH (16:58)
[2018-02-06] MEDS: FOLIC ACID 1 MG TAB NG-TUBE SCH (16:59)
[2018-02-06] MEDS: MULTIVITAMINS, THERA LIQUID 237 ML BOTTLE NG-TUBE SCH (17:00)
[2018-02-06 20:18] LABS: Potassium 4.2 mmol/L (3.5-5.1)
--- NOTE | 2018-02-06 20:18 | EEG ---
ELECTROENCEPHALOGRAM REPORT DATE OF EE ELECTROENCEPHALOGRAPHIC EXAMINATION REPORT: INDICATION FOR EXAMINATION: This patient is a 47-year-old male being evaluated for severe hyponatremia and new onset seizures. This is a follow-up EEG for evaluation of left arm twitching and jerking motions. EEG to rule out focal seizure. AGE: [age]. EEG FINDINGS: A routine 21-channel awake digital EEG recording was accomplished utilizing the 10-20 international system with bipolar and referential montages. The background activity in the most alert resting state consists of a low to medium amplitude, poorly developed and poorly sustained 6 Hz activity over the posterior head region. This posterior rhythm attenuates minimally to eye opening. There is a moderate amount of low amplitude 18-20 Hz beta activity seen in a generalized fashion. Muscle and movement artifact was observed only on a few occasions during the tracing. Hyperventilation was not performed. Photic stimulation at flash frequencies of 2-30 Hz produced a minimal occipital driving response. No epileptiform discharges were seen. During the entire tracing, video monitoring was performed. The patient had continuous twitching of the left arm with no EEG correlate seen. IMPRESSION: This EEG continues to reveal evidence of diffuse slowing. The EEG failed to reveal any correlation to left arm twitching or movements. No epileptiform discharges were seen. Compared to the previous EEG done on 02/05/2018, there is very little improvement in the EEG background. Clinical correlation is recommended. MMLANE / MICHAELN: [id number] /
--- NOTE | 2018-02-06 23:00 | P.PN ---
Subjective Progress Note Date: 02/06/18 This patient is seen today in the ICU for seizure disorder and severe hyponatremia. The patient presented with status epilepticus to the emergency room. He was found to have initially severe hyponatremia with a serum sodium of 112. He was treated initially with 3% saline initially and his serum sodium today is 120. He was weaned off of Diprivan today. He still has been noted to have some twitching of his left hand. For this reason a repeat EEG was performed today and still reveals no evidence of epileptic seizure focus despite ongoing twitching of the left arm. We are waiting his Keppra level to return from the laboratory. This should be available tomorrow and adjustments will be made as necessary. The patient likely has moderate degree of encephalopathy secondary to the severe hyponatremia. We will continue close neurological follow-up for the patient. Case was discussed today at length with his mother and girlfriend who were at bedside. All their questions were answered. He will need ongoing close neurological follow-up in the intensive care unit until he is more awake and alert to be extubated. His overall prognosis at this time remains very guarded. Objective - Vital Signs Vital signs: Vital Signs Temp 99.3 F 02/06/18 12:00 Pulse 98 02/06/18 13:00 Resp 18 02/06/18 13:00 BP 116/77 02/06/18 13:00 Pulse Ox 98 02/06/18 13:00 Intake & Output 02/05/18 02/06/18 02/06/18 18:59 06:59 18:59 Intake Total 307.672 3640.5 1283.617 Output Total 359 640 364 Balance 264.830 472.5 919.617 Weight 56.5 kg 57.4 kg Intake: IV 437.5 662.5 1100.0 0.9 at 75 150 Magnesium Sulfate-D5w Pmx 100 200 1 gm In Dextrose/Water 1 100ml.bag @ 100 mls/hr IVPB ONCE ONE Rx#: [id number] Piperacillin-Tazobactam 3 87.5 62.5 50.0 .375 gm In Dextrose/Water 1 50ml.bag @ 12.5 mls/hr IVPB Q8HR [facility] Rx#: [id number] Potassium Phosphate 10 250 mmol In Sodium Chloride 0 .9% 250 ml @ 125 mls/hr IV Q2H [facility] Rx#:[id number] Potassium Phosphate 10 500 mmol In Sodium Chloride 0 .9% 250 ml @ 125 mls/hr IV Q2H [facility] Rx#:[id number] Sodium Chloride 0.9% 1, 500 100 000 ml @ 50 mls/hr IV . Q20H [facility] Rx#:[id number] levETIRAcetam IV 750 mg 100 100 In Sodium Chloride 0.9% 100 ml @ 400 mls/hr IVPB Q12H [facility] Rx#:[id number] Intake, IV Titration 126.330 200 23.617 Amount Propofol 1,000 mg In 126.330 200 23.617 Empty Bag 1 bag @ Titrate IV .Q0M [facility] Rx#: [id number] Tube Feeding 30 160 100 Other 30 90 60 Output: Urine 359 640 364 Other: Voiding Method Indwelling Catheter Indwelling Catheter Indwelling Catheter # Bowel Movements 1 - Exam Physical Examination: - Labs CBC & Chem 7: 02/06/18 04:29 02/06/18 20:04 Labs: Abnormal Lab Results - Last 24 Hours (Table) 02/05/18 02/05/18 02/06/18 Range/Units 14:31 20:17 01:00 WBC (3.8-10.6) k/uL RBC (4.30-5.90) m/uL Hgb (13.0-17.5) gm/dL Hct (39.0-53.0) % Neutrophils # (1.3-7.7) k/uL Lymphocytes # (1.0-4.8) k/uL ABG pH (7.35-7.45) ABG pO2 (83-108) mmHg ABG HCO3 (21-25) mmol/L ABG Total CO2 (19-24) mmol/L Sodium 120 L* 118 L* 121 L (137-145) mmol/L Potassium 2.9 L* (3.5-5.1) mmol/L Chloride (98-107) mmol/L Carbon Dioxide (22-30) mmol/L Creatinine (0.66-1.25) mg/dL Glucose (74-99) mg/dL Calcium (8.4-10.2) mg/dL Phosphorus (2.5-4.5) mg/dL 02/06/18 02/06/18 02/06/18 Range/Units 04:29 04:29 07:11 WBC 12.5 H (3.8-10.6) k/uL RBC 3.35 L (4.30-5.90) m/uL Hgb 11.5 L (13.0-17.5) gm/dL Hct 32.6 L (39.0-53.0) % Neutrophils # 10.8 H (1.3-7.7) k/uL Lymphocytes # 0.7 L (1.0-4.8) k/uL ABG pH 7.56 H (7.35-7.45) ABG pO2 76 L (83-108) mmHg ABG HCO3 38 H (21-25) mmol/L ABG Total CO2 40 H (19-24) mmol/L Sodium 120 L* (137-145) mmol/L Potassium (3.5-5.1) mmol/L Chloride 73 L* (98-107) mmol/L Carbon Dioxide 38 H (22-30) mmol/L Creatinine 0.50 L (0.66-1.25) mg/dL Glucose 105 H (74-99) mg/dL Calcium 8.3 L (8.4-10.2) mg/dL Phosphorus 1.8 L (2.5-4.5) mg/dL 02/06/18 Range/Units 10:27 WBC (3.8-10.6) k/uL RBC (4.30-5.90) m/uL Hgb (13.0-17.5) gm/dL Hct (39.0-53.0) % Neutrophils # (1.3-7.7) k/uL Lymphocytes # (1.0-4.8) k/uL ABG pH (7.35-7.45) ABG pO2 (83-108) mmHg ABG HCO3 (21-25) mmol/L ABG Total CO2 (19-24) mmol/L Sodium 121 L (137-145) mmol/L Potassium (3.5-5.1) mmol/L Chloride (98-107) mmol/L Carbon Dioxide (22-30) mmol/L Creatinine (0.66-1.25) mg/dL Glucose (74-99) mg/dL Calcium (8.4-10.2) mg/dL Phosphorus (2.5-4.5) mg/dL Microbiology - Last 24 Hours (Table) 02/05/18 03:23 Urine Culture - Final Urine,Catheterized 02/04/18 21:27 Gram Stain - Preliminary Sputum Sputum Culture - Preliminary 02/04/18 17:18 Blood Culture - Preliminary Blood No Growth after 24 hours Assessment and Plan (1) New onset seizure Current Visit: Yes Status: Acute Code(s): R56.9 - UNSPECIFIED CONVULSIONS SNOMED Code(s): 62395162 (2) Focal motor seizure Current Visit: Yes Status: Acute Code(s): G40.109 - LOCAL-REL SYMPTC EPI W SIMP PRT SEIZ,NOT NTRCT, W/O STAT EPI SNOMED Code(s): 143044115 (3) Hyponatremia Current Visit: Yes Status: Acute Code(s): E87.1 - HYPO-OSMOLALITY AND HYPONATREMIA SNOMED Code(s): 40983024 (4) Alcohol abuse Current Visit: Yes Status: Acute Code(s): F10.10 - ALCOHOL ABUSE, UNCOMPLICATED SNOMED Code(s): 19457893 Plan: This patient is a 47-year-old right-handed white male who was admitted to the emergency room yesterday after being found at home having generalized tonic- clonic seizure. He was intubated on the scene and brought into the emergency room for further evaluation. He was seen in the ER by Dr. Freeman. He was sent for a computed tomography scan of the brain the results of which are noted above. CAT scan of the brain revealed cerebral atrophy with no acute intracranial abnormality. Patient continued to have seizure-like activity in the ER and was loaded with IV Keppra. Laboratory testing revealed him to have severe hyponatremia with a serum sodium in the ER of 112. He was started on 3% normal saline and intubated and transferred to the intensive care unit. Patient was seen in the ICU this morning and his serum sodium level is 117. He is to had an EEG yesterday for further evaluation. This EEG revealed diffuse slowing. No epileptiform discharges were seen. We will obtain a Keppra blood level for this patient and adjust his dose as needed. His overall prognosis at this time remains very guarded. Would continue with seizure precautions for this patient. He is to be maintained on Keppra 750 mg IV piggyback every 12 hours. The patient continued to demonstrate some twitching of his left arm. It was unclear if this was related to ongoing focal seizure. He had a follow- up EEG today which was reviewed. EEG shows no significant change from previous study. No epileptiform discharges were seen to coincide with his left hand motion and movements. At this time we will need to continue close monitoring of his condition. His Keppra blood level should be available tomorrow from the laboratory and this will be adjusted if needed. Case was discussed today at length with the patient's mother and girlfriend at bedside. His overall prognosis at this time still remains very guarded. We will continue close neurological follow-up of this patient in the intensive care unit.
[2018-02-07] MEDS: PIPERACILLIN-TAZOBACTAM 3.375 GM in DEXTROSE/WATER 1 50ML.BAG IVPB SCH ×3 (00:07→16:11)
[2018-02-07 04:57] LABS: Basophils % (A) 0 %; Eosinophils # (A) 0.3 k/uL (0-0.7); Eosinophils % (A) 3 %; HCT 32.9 % (39.0-53.0); HGB 11.5 gm/dL (13.0-17.5); Lymphocytes # (A) 1.3 k/uL (1.0-4.8); Lymphocytes % (A) 11 %; MCV 97.2 fL (80.0-100.0); Mean Platelet Volume 7.6; Monocytes # (A) 0.7 k/uL (0-1.0); Monocytes % (A) 7 %; Neutrophils # (A) 8.7 k/uL (1.3-7.7); Neutrophils % (A) 78 %; Platelet Count 236 k/uL (150-450); RBC 3.39 m/uL (4.30-5.90); RDW 12.9 % (11.5-15.5); WBC 11.3 k/uL (3.8-10.6)
[2018-02-07 05:02] LABS: Anion Gap 8 mmol/L; Blood Urea Nitrogen 6 mg/dL (9-20); Calcium 8.2 mg/dL (8.4-10.2); Carbon Dioxide 30 mmol/L (22-30); Chloride 85 mmol/L (98-107); Glucose 117 mg/dL (74-99); Phosphorus 2.5 mg/dL (2.5-4.5); Potassium 3.9 mmol/L (3.5-5.1); Sodium 123 mmol/L (137-145)
[2018-02-07 05:03] LABS: Magnesium 1.5 mg/dL (1.6-2.3)
[2018-02-07] MEDS: LORazepam 2 MG/ML INJ IV PRN (05:22)
[2018-02-07] MEDS ORDERED: Magnesium Replacement Protocol 1 EACH MISC MISCELLANE PRN (05:34)
[2018-02-07] MEDS ORDERED: Potassium Replacement Protocol 1 EACH MISC MISCELLANE PRN ×2 (05:35→11:46)
[2018-02-07] MEDS: MAGNESIUM SULFATE-D5W PMX 1 GM in DEXTROSE/WATER 1 100ML.BAG IVPB SCH ×2 (05:55→07:00)
[2018-02-07] MEDS ORDERED: POTASSIUM BICARBONATE/CIT AC 20 MEQ TABLET.EFF NG-TUBE SCH (06:00)
[2018-02-07 07:52] LABS: ABG Base Excess 10.6 mmol/L; ABG HCO3 33 mmol/L (21-25); ABG Oxygen Saturation 97.3 % (94-97); ABG PCO2 39 mmHg (35-45); ABG PH 7.53 (7.35-7.45); ABG PO2 81 mmHg (83-108); ABG TCO2 34 mmol/L (19-24)
[2018-02-07] MEDS: IPRATROPIUM-ALBUTEROL 3 ML NEB INHALATION SCH ×4 (08:12→19:20)
[2018-02-07] MEDS: CHLORHEXIDINE GLUCONATE 15 ML CUP MUCOUS MEM SCH ×2 (08:24→22:03)
[2018-02-07] MEDS: PANTOPRAZOLE 40 MG/10 ML VIAL IV SCH (08:24)
[2018-02-07] MEDS: NICOTINE 21MG/24HR PATCH TRANSDERM SCH (08:24)
[2018-02-07] MEDS: ENOXAPARIN 40 MG/0.4 ML SYRINGE SQ SCH (08:24)
--- NOTE | 2018-02-07 08:28 | XR ---
EXAMINATION TYPE: XR chest 1V portable DATE OF EXAM: 02/07/2018 COMPARISON: Prior chest 02/06/2018 HISTORY: Intubated TECHNIQUE: Single frontal view of the chest is obtained. FINDINGS: Endotracheal tube and NG tube are overlying appropriate positions. Patient is rotated and there are overlying cardiac leads. No evident airspace disease, pneumothorax, or pleural effusion. Pa tchy basilar density persists. Lung volumes are low. IMPRESSION: Correlate for atelectasis, pneumonia, follow-up PA and lateral chest x-ray recommended w hen stable.
[2018-02-07] MEDS: levETIRAcetam IV 750 MG in SODIUM CHLORIDE 0.9% 100 ML IVPB SCH ×2 (09:40→20:12)
[2018-02-07 10:00] LABS: Magnesium 2.6 mg/dL (1.6-2.3); Potassium 3.6 mmol/L (3.5-5.1)
[2018-02-07] MEDS ORDERED: FUROSEMIDE 10 MG/ML 4 ML VIAL IV STA (10:00)
--- NOTE | 2018-02-07 10:06 | P.PN ---
Subjective Patient is seen in follow-up for hyponatremia. Patient presented to the hospital after witnessed tonic-clonic seizure. Sodium was 112 and he was given 3% initially. Patient's currently intubated. Sedation has been turned off. Currently maintained on normal saline at 75 mL an hour. He did receive a dose of IV Lasix yesterday. Sodium level CXXIII this morning. Vital signs are stable. General: The patient appeared well nourished and normally developed. HEENT: Head exam is unremarkable. Neck is without jugular venous distension. Intubated. LUNGS: Lungs are clear to auscultation and percussion. Breath sounds decreased. HEART: Rate and Rhythm are regular. First and second heart sounds normal. No murmurs, rubs or gallops. ABDOMEN: Abdominal exam reveals normal bowel sounds. Non-tender and non- distended. No evidence of peritonitis. EXTREMITITES: No clubbing, cyanosis, or edema. Objective - Vital Signs Vital signs: Vital Signs Temp 97.4 F L 02/07/18 08:00 Pulse 87 02/07/18 09:00 Resp 18 02/07/18 09:00 BP 110/76 02/07/18 09:00 Pulse Ox 100 02/07/18 09:00 Intake & Output 02/06/18 02/07/18 02/07/18 18:59 06:59 18:59 Intake Total 2806.037 6568.5 405 Output Total 1474 1365 260 Balance 402.117 457.5 145 Weight 57.4 kg Intake: IV 1512.5 1262.5 225 0.9 at 75 525 900 225 Magnesium Sulfate-D5w Pmx 200 200 1 gm In Dextrose/Water 1 100ml.bag @ 100 mls/hr IVPB ONCE ONE Rx#: [id number] Piperacillin-Tazobactam 3 87.5 62.5 .375 gm In Dextrose/Water 1 50ml.bag @ 12.5 mls/hr IVPB Q8HR [facility] Rx#: [id number] Potassium Phosphate 10 500 mmol In Sodium Chloride 0 .9% 250 ml @ 125 mls/hr IV Q2H [facility] Rx#:[id number] Sodium Chloride 0.9% 1, 100 000 ml @ 50 mls/hr IV . Q20H [facility] Rx#:[id number] levETIRAcetam IV 750 mg 100 100 In Sodium Chloride 0.9% 100 ml @ 400 mls/hr IVPB Q12H [facility] Rx#:[id number] Intake, IV Titration 23.617 100 Amount Magnesium Sulfate-D5w Pmx 100 1 gm In Dextrose/Water 1 100ml.bag @ 100 mls/hr IVPB Q1H [facility] Rx#: [id number] Propofol 1,000 mg In 23.617 Empty Bag 1 bag @ Titrate IV .Q0M [facility] Rx#: [id number] Tube Feeding 250 440 80 Other 90 120 Output: Urine 1474 1365 260 Other: Voiding Method Indwelling Catheter Indwelling Catheter Indwelling Catheter # Bowel Movements 1 - Labs CBC & Chem 7: 02/07/18 04:35 02/07/18 09:22 Labs: Abnormal Lab Results - Last 24 Hours (Table) 02/06/18 02/06/18 02/06/18 Range/Units 07:11 10:27 15:03 WBC (3.8-10.6) k/uL RBC (4.30-5.90) m/uL Hgb (13.0-17.5) gm/dL Hct (39.0-53.0) % Neutrophils # (1.3-7.7) k/uL ABG pH 7.56 H (7.35-7.45) ABG pO2 76 L (83-108) mmHg ABG HCO3 38 H (21-25) mmol/L ABG Total CO2 40 H (19-24) mmol/L ABG O2 Saturation (94-97) % Sodium 121 L 120 L* (137-145) mmol/L Potassium 3.2 L (3.5-5.1) mmol/L Chloride (98-107) mmol/L BUN (9-20) mg/dL Creatinine (0.66-1.25) mg/dL Glucose (74-99) mg/dL Calcium (8.4-10.2) mg/dL Magnesium (1.6-2.3) mg/dL 02/06/18 02/07/18 02/07/18 Range/Units 20:04 04:35 04:35 WBC 11.3 H (3.8-10.6) k/uL RBC 3.39 L (4.30-5.90) m/uL Hgb 11.5 L (13.0-17.5) gm/dL Hct 32.9 L (39.0-53.0) % Neutrophils # 8.7 H (1.3-7.7) k/uL ABG pH (7.35-7.45) ABG pO2 (83-108) mmHg ABG HCO3 (21-25) mmol/L ABG Total CO2 (19-24) mmol/L ABG O2 Saturation (94-97) % Sodium 123 L 123 L (137-145) mmol/L Potassium (3.5-5.1) mmol/L Chloride 85 L (98-107) mmol/L BUN 6 L (9-20) mg/dL Creatinine 0.40 L (0.66-1.25) mg/dL Glucose 117 H (74-99) mg/dL Calcium 8.2 L (8.4-10.2) mg/dL Magnesium 1.5 L (1.6-2.3) mg/dL 02/07/18 02/07/18 Range/Units 07:51 09:22 WBC (3.8-10.6) k/uL RBC (4.30-5.90) m/uL Hgb (13.0-17.5) gm/dL Hct (39.0-53.0) % Neutrophils # (1.3-7.7) k/uL ABG pH 7.53 H (7.35-7.45) ABG pO2 81 L (83-108) mmHg ABG HCO3 33 H (21-25) mmol/L ABG Total CO2 34 H (19-24) mmol/L ABG O2 Saturation 97.3 H (94-97) % Sodium (137-145) mmol/L Potassium (3.5-5.1) mmol/L Chloride (98-107) mmol/L BUN (9-20) mg/dL Creatinine (0.66-1.25) mg/dL Glucose (74-99) mg/dL Calcium (8.4-10.2) mg/dL Magnesium 2.6 H (1.6-2.3) mg/dL Microbiology - Last 24 Hours (Table) 02/04/18 21:27 Gram Stain - Preliminary Sputum Sputum Culture - Preliminary Streptococcus pneumoniae 02/04/18 17:18 Blood Culture - Preliminary Blood No Growth after 48 hours 02/05/18 03:23 Urine Culture - Final Urine,Catheterized Assessment and Plan Plan: Assessment: 1. Symptomatic hypoosmolar hyponatremia status post 3%. Sodium level of to 123 this morning. Urine sodium noted to be low sodium appears to be hypovolemic hyponatremia. 2. Seizure secondary to hyponatremia. Neurology following. 3. Severe hypokalemia. Etiology unclear. Unsure if patient was having any vomiting or diarrhea. Improved post replacement. 4. Metabolic alkalosis secondary to hypokalemia and hypochloremia leading to impaired bicarb secretion. Improved. 5. Hypophosphatemia from poor oral intake likely. Improved post replacement. 6. Hypomagnesemia improved posterior placement. Plan: I will decrease the rate of normal saline to 40 mL an hour. Maintain tube feeds. Lasix 40 mg IV once now. Goal rate of correction 6-8 mEq per 24 hours. Continue with magnesium, potassium and phosphorus replacement. Repeat sodium level at 3 PM today.
[2018-02-07] MEDS: POTASSIUM CHLORIDE 10 MEQ in WATER FOR INJECTION 1 100ML.BAG IVPB SCH ×2 (11:59→13:12)
--- NOTE | 2018-02-07 12:39 | P.PN ---
Subjective Progress Note Date: 02/07/18 Principal diagnosis: Acute respiratory failure, status epilepticus, and hyponatremia. This is a 47-year-old white male with history of alcoholism, patient has been complaining of multiple GI symptoms mostly nausea and vomiting for the last few days. Patient was found by his girlfriend having active tonic-clonic seizure and 911 was immediately called. EMS arrived, patient was noted to have a generalized tonic-clonic seizure. IV access was established, patient was given Ativan and Versed, seizure did not seem to stop. Apparently patient went on to continue seizing for about 30 minutes, and upon arrival to the ER, patient was still in status epilepticus. Patient was intubated by the ER physician, CT of the brain showed no significant abnormality, however his serum sodium came back quite low at 112. Patient was placed on hypertonic saline overnight, and his sodium went up from last night until early this morning up to 117. His 3% saline was discontinued, patient was seen by neurology on consultation and he was placed on more seizure medications. Seizures were finally controlled, patient is now on propofol drip, he is also on Keppra, and he is on mechanical ventilation. Considering his admission to the ICU on mechanical ventilation, I was asked to see him on consultation. Patient is fully sedated at this point, and some of the information I obtained was from his mother who has been concerned about him and about the fact that he hasn't been eating and drinking much in spite of his chronic nausea vomiting and at times diarrhea. Presently patient is on mechanical ventilation, he is on tidal volume of 450 assist- control rate of 16 FiO2 of 50% and PEEP of 5. ABG this morning showed a pO2 of 76 pCO2 of 46 pH of 7.54. His sodium is up to 118 chloride is 69 BUN is 13 creatinine 0.45. Serum osmolality on admission was 236, urine osmolality was 407. And his urine sodium was 12 toxic screen was negative. And his serum alcohol was less than 10. Chest x-ray showed no active pulmonary disease, however considering the patient had a prolonged seizure and status epilepticus, he was placed empirically on Zosyn for presumptive aspiration. Patient was reevaluated today on 02/06/2018, remains on mechanical ventilation, his ventilator settings are tidal volume of 450 assist-control rate 16 FiO2 50% and PEEP of 5. Presently on 0.9 normal saline at 75 mL per hour. Sodium today is up to 121. Potassium is normal ABG showed a pO2 of 76 pCO2 of 43 pH of 7.56. Chest x-ray was reviewed, minimal basilar atelectasis is noted, possibility of aspiration pneumonia is not entirely ruled out, patient remains empirically on antibiotics. WBC count is 12.5 hemoglobin is 11.5. Renal profile is normal. Patient is not following any instructions, off propofol, continues to have some myoclonic jerks noted in the left upper extremity and left lower extremity. Been addressed by neurology, did not feel to be seizure related. I was able to discontinue propofol, and I plan to manage the patient with Ativan as needed. In the meantime he is still on antiseizure medications and treatment. Patient was reevaluated today on 02/07/2018, remains on mechanical ventilation, same ventilator settings, ABG was reviewed. PO2 was 81 pCO2 of 39 pH of 7.53. Sodium is up to 123. Patient remains on IV fluid in the form of 0.9 normal saline at 75 mL per hour. His sodium is being corrected very slowly, there is no reason to cut down the IV fluid and there is no reason at this point to use any Lasix. CBC is normal. Chest x-ray is relatively unremarkable. Hence I recommended a weaning trial using pressure support and CPAP, I evaluated the patient while he was on pressure support and CPAP for almost 20 minutes, and he was noted to do well. Continues to have significant jerking in the left upper and left lower extremity. According to the family this is a new finding. Patient remains on Keppra, and he is basically followed by neurology Objective - Vital Signs Vital signs: Vital Signs Temp 99.1 F 02/07/18 12:00 Pulse 91 02/07/18 12:00 Resp 14 02/07/18 12:00 BP 109/78 02/07/18 12:00 Pulse Ox 94 L 02/07/18 12:00 Intake & Output 02/06/18 02/07/18 02/07/18 18:59 06:59 18:59 Intake Total 4273.515 7358.5 730 Output Total 1474 1365 465 Balance 402.117 457.5 265 Weight 57.4 kg Intake: IV 1512.5 1262.5 550 0.9 at 75 525 900 450 Magnesium Sulfate-D5w Pmx 200 200 1 gm In Dextrose/Water 1 100ml.bag @ 100 mls/hr IVPB ONCE ONE Rx#: [id number] Piperacillin-Tazobactam 3 87.5 62.5 .375 gm In Dextrose/Water 1 50ml.bag @ 12.5 mls/hr IVPB Q8HR [facility] Rx#: [id number] Potassium Phosphate 10 500 mmol In Sodium Chloride 0 .9% 250 ml @ 125 mls/hr IV Q2H [facility] Rx#:[id number] Sodium Chloride 0.9% 1, 100 000 ml @ 50 mls/hr IV . Q20H [facility] Rx#:[id number] levETIRAcetam IV 750 mg 100 100 100 In Sodium Chloride 0.9% 100 ml @ 400 mls/hr IVPB Q12H [facility] Rx#:[id number] Intake, IV Titration 23.617 100 Amount Magnesium Sulfate-D5w Pmx 100 1 gm In Dextrose/Water 1 100ml.bag @ 100 mls/hr IVPB Q1H [facility] Rx#: [id number] Propofol 1,000 mg In 23.617 Empty Bag 1 bag @ Titrate IV .Q0M [facility] Rx#: [id number] Tube Feeding 250 440 80 Other 90 120 Output: Urine 1474 1365 465 Other: Voiding Method Indwelling Catheter Indwelling Catheter Indwelling Catheter # Bowel Movements 1 - Exam Physical Exam: Revealed a 47-year-old white male on mechanical ventilation, off propofol, myoclonic jerks noted in left upper and lower extremities. Patient seems to be very appropriate and followed all instructions. Head: Atraumatic, normocephalic. Endotracheal tube and nasogastric tube are intact. HEENT:[Neck is supple.] [No neck masses.] [No thyromegaly.] [No JVD.] Chest: [Minimal fine crackles at the bases.] No rhonchi, no wheezes, no chest wall tenderness. Cardiac Exam: [Normal S1 and S2, no S3 gallop, no murmur.] Abdomen: [Soft, nontender, no megaly, no rebound, no guarding, normal bowel sounds.] Extremities: [No clubbing, no edema, no cyanosis.] Neurological Exam: Off propofol, patient is opening eyes, following all instructions, but continues to have ongoing jerking of the left upper and left lower extremity. Psychiatric: Depressed mood, blunt affect. Follows instructions.. Lymphatics: No lymphadenopathy Skin: No rashes. - Labs CBC & Chem 7: 02/07/18 04:35 02/07/18 09:22 Labs: Abnormal Lab Results - Last 24 Hours (Table) 02/06/18 02/06/18 02/07/18 Range/Units 15:03 20:04 04:35 WBC 11.3 H (3.8-10.6) k/uL RBC 3.39 L (4.30-5.90) m/uL Hgb 11.5 L (13.0-17.5) gm/dL Hct 32.9 L (39.0-53.0) % Neutrophils # 8.7 H (1.3-7.7) k/uL ABG pH (7.35-7.45) ABG pO2 (83-108) mmHg ABG HCO3 (21-25) mmol/L ABG Total CO2 (19-24) mmol/L ABG O2 Saturation (94-97) % Sodium 120 L* 123 L (137-145) mmol/L Potassium 3.2 L (3.5-5.1) mmol/L Chloride (98-107) mmol/L BUN (9-20) mg/dL Creatinine (0.66-1.25) mg/dL Glucose (74-99) mg/dL Calcium (8.4-10.2) mg/dL Magnesium (1.6-2.3) mg/dL 02/07/18 02/07/18 02/07/18 Range/Units 04:35 07:51 09:22 WBC (3.8-10.6) k/uL RBC (4.30-5.90) m/uL Hgb (13.0-17.5) gm/dL Hct (39.0-53.0) % Neutrophils # (1.3-7.7) k/uL ABG pH 7.53 H (7.35-7.45) ABG pO2 81 L (83-108) mmHg ABG HCO3 33 H (21-25) mmol/L ABG Total CO2 34 H (19-24) mmol/L ABG O2 Saturation 97.3 H (94-97) % Sodium 123 L (137-145) mmol/L Potassium (3.5-5.1) mmol/L Chloride 85 L (98-107) mmol/L BUN 6 L (9-20) mg/dL Creatinine 0.40 L (0.66-1.25) mg/dL Glucose 117 H (74-99) mg/dL Calcium 8.2 L (8.4-10.2) mg/dL Magnesium 1.5 L 2.6 H (1.6-2.3) mg/dL Microbiology - Last 24 Hours (Table) 02/04/18 21:27 Gram Stain - Preliminary Sputum Sputum Culture - Preliminary Streptococcus pneumoniae 02/04/18 17:18 Blood Culture - Preliminary Blood No Growth after 48 hours 02/05/18 03:23 Urine Culture - Final Urine,Catheterized Assessment and Plan Assessment: Impression: 1 acute hypoxic respiratory failure secondary to status epilepticus and a new onset seizure. 2 acute hypovolemic hyponatremia, most likely the main contributing factor to his new onset seizure. Sodium corrected over the last 2 days from 112 up to 123. Today. 3 recent episode of nausea vomiting and diarrhea/acute gastroenteritis, exact etiology is not clear. Patient presented with profound hypovolemia. And hypovolemic hyponatremia. With other electrolytes imbalance. 4 alcoholism and alcohol abuse. 5 severe hypokalemia again likely secondary to nausea vomiting and diarrhea. 6 acute contraction metabolic alkalosis. Continue IV fluid using 0.9 normal saline at 70 mL per hour. Recommendation: While I was at bedside, I recommended pressure support and CPAP , his pressure support was 8. And patient did well for over 20 minutes, hence I recommended extubation, and he was extubated to nasal cannula. Patient tolerated the extubation well, and I plan to monitor the patient over the next few hours in the ICU, continue alcohol withdrawal protocol, continue thiamine, and will follow closely. Discussed his condition with family including mother at bedside. Critical care time is 35 minutes. Time with Patient: Greater than 30
[2018-02-07 18:03] LABS: Potassium 4.1 mmol/L (3.5-5.1)
--- NOTE | 2018-02-07 18:32 | P.PN ---
Subjective Progress Note Date: 02/07/18 This patient is seen today in the ICU for seizure disorder and severe hyponatremia. The patient presented with status epilepticus to the emergency room. He was found to have initially severe hyponatremia with a serum sodium of 112. He was treated initially with 3% saline initially and his serum sodium today is 120. He was weaned off of Diprivan gradually and was able to be extubated this morning. He still has been noted to have some twitching of his left hand. For this reason a repeat EEG was performed yesterday and still reveals no evidence of epileptic seizure focus despite ongoing twitching of the left arm. We are waiting his Keppra level to return from the laboratory. Check with the laboratory today reveals his Keppra level to be 12.0 and is in a therapeutic range. The patient likely has moderate degree of encephalopathy secondary to the severe hyponatremia. As noted his EEG fails to reveal any focal seizure activity to explain his left arm twitching. We have recommended the patient to undergo an MRI of the brain for close evaluation of the brainstem region. His serum sodium today is been corrected and is 125. We will need to continue very slow replacement of his sodium level. The patient states he is unable to stop the twitching of his left arm but apparently the left leg twitching has significantly diminished today. We will continue close neurological follow-up for the patient. Case was discussed today at length with his mother and girlfriend who were at bedside. All their questions were answered. He was extubated today and is very much awake and alert and able to answer simple questions. We will continue close neurological follow-up with this patient in the intensive care unit. His overall prognosis at this time remains very guarded. Objective - Vital Signs Vital signs: Vital Signs Temp 99.1 F 02/07/18 12:00 Pulse 92 02/07/18 13:00 Resp 18 02/07/18 13:00 BP 118/88 02/07/18 13:00 Pulse Ox 97 02/07/18 13:00 Intake & Output 02/06/18 02/07/18 02/07/18 18:59 06:59 18:59 Intake Total 2764.503 9327.5 905 Output Total 1474 1365 505 Balance 402.117 457.5 400 Weight 57.4 kg 57.4 kg Intake: IV 1512.5 1262.5 625 0.9 at 75 525 900 525 Magnesium Sulfate-D5w Pmx 200 200 1 gm In Dextrose/Water 1 100ml.bag @ 100 mls/hr IVPB ONCE ONE Rx#: [id number] Piperacillin-Tazobactam 3 87.5 62.5 .375 gm In Dextrose/Water 1 50ml.bag @ 12.5 mls/hr IVPB Q8HR [facility] Rx#: [id number] Potassium Phosphate 10 500 mmol In Sodium Chloride 0 .9% 250 ml @ 125 mls/hr IV Q2H [facility] Rx#:[id number] Sodium Chloride 0.9% 1, 100 000 ml @ 50 mls/hr IV . Q20H [facility] Rx#:[id number] levETIRAcetam IV 750 mg 100 100 100 In Sodium Chloride 0.9% 100 ml @ 400 mls/hr IVPB Q12H [facility] Rx#:[id number] Intake, IV Titration 23.617 200 Amount Magnesium Sulfate-D5w Pmx 100 1 gm In Dextrose/Water 1 100ml.bag @ 100 mls/hr IVPB Q1H [facility] Rx#: [id number] Potassium Chloride 10 meq 100 In Water For Injection 1 100ml.bag @ 100 mls/hr IVPB Q1H [facility] Rx#: [id number] Propofol 1,000 mg In 23.617 Empty Bag 1 bag @ Titrate IV .Q0M [facility] Rx#: [id number] Tube Feeding 250 440 80 Other 90 120 Output: Urine 1474 1365 505 Other: Voiding Method Indwelling Catheter Indwelling Catheter Indwelling Catheter # Bowel Movements 1 - Exam Physical Examination: PHYSICAL EXAMINATION: Patient is resting comfortably in bed. VITAL SIGNS: Blood pressure is [124/83]. Heart rate is [87]. Respiration is [21] . Temperature is [99.0]. HEENT: Head is atraumatic, neck is supple, there were no carotid bruits. CHEST: Lungs are clear to auscultation and percussion. CARDIAC: S1, S2 normal rate and rhythm. There is no murmur. ABDOMEN: Soft and nontender. Bowel sounds are present. EXTREMITIES: There is no pedal edema. Peripheral pulses are present. Neurological examination: Patient is examined in the intensive care unit. He was extubated this morning at 10:30 AM. He is now sitting up in bed and is awake and alert. He is able to follow simple commands. His memory and intellectual function slightly impaired. Cranial nerves II through XII are grossly intact. Patient does show evidence of mild ptosis of the left eyelid. Extraocular eye movements are intact. Motor examination: There was no pronator drift. Muscle tone is normal. Muscle strength is 4/5 throughout. Patient has occasional left arm twitching which is asynchronous. Sensory examination: Patient withdraws to pain overall extremities. Deep tendon reflexes: DTRs are 1+ and symmetric. Plantar responses flexor bilaterally. - Labs CBC & Chem 7: 02/07/18 04:35 02/07/18 17:08 Labs: Abnormal Lab Results - Last 24 Hours (Table) 02/06/18 02/06/18 02/07/18 Range/Units 15:03 20:04 04:35 WBC 11.3 H (3.8-10.6) k/uL RBC 3.39 L (4.30-5.90) m/uL Hgb 11.5 L (13.0-17.5) gm/dL Hct 32.9 L (39.0-53.0) % Neutrophils # 8.7 H (1.3-7.7) k/uL ABG pH (7.35-7.45) ABG pO2 (83-108) mmHg ABG HCO3 (21-25) mmol/L ABG Total CO2 (19-24) mmol/L ABG O2 Saturation (94-97) % Sodium 120 L* 123 L (137-145) mmol/L Potassium 3.2 L (3.5-5.1) mmol/L Chloride (98-107) mmol/L BUN (9-20) mg/dL Creatinine (0.66-1.25) mg/dL Glucose (74-99) mg/dL Calcium (8.4-10.2) mg/dL Magnesium (1.6-2.3) mg/dL 02/07/18 02/07/18 02/07/18 Range/Units 04:35 07:51 09:22 WBC (3.8-10.6) k/uL RBC (4.30-5.90) m/uL Hgb (13.0-17.5) gm/dL Hct (39.0-53.0) % Neutrophils # (1.3-7.7) k/uL ABG pH 7.53 H (7.35-7.45) ABG pO2 81 L (83-108) mmHg ABG HCO3 33 H (21-25) mmol/L ABG Total CO2 34 H (19-24) mmol/L ABG O2 Saturation 97.3 H (94-97) % Sodium 123 L (137-145) mmol/L Potassium (3.5-5.1) mmol/L Chloride 85 L (98-107) mmol/L BUN 6 L (9-20) mg/dL Creatinine 0.40 L (0.66-1.25) mg/dL Glucose 117 H (74-99) mg/dL Calcium 8.2 L (8.4-10.2) mg/dL Magnesium 1.5 L 2.6 H (1.6-2.3) mg/dL Microbiology - Last 24 Hours (Table) 02/04/18 21:27 Gram Stain - Preliminary Sputum Sputum Culture - Preliminary Streptococcus pneumoniae 02/04/18 17:18 Blood Culture - Preliminary Blood No Growth after 48 hours Assessment and Plan (1) New onset seizure Current Visit: Yes Status: Acute Code(s): R56.9 - UNSPECIFIED CONVULSIONS SNOMED Code(s): 82023111 (2) Focal motor seizure Current Visit: Yes Status: Acute Code(s): G40.109 - LOCAL-REL SYMPTC EPI W SIMP PRT SEIZ,NOT NTRCT, W/O STAT EPI SNOMED Code(s): 583712602 (3) Hyponatremia Current Visit: Yes Status: Acute Code(s): E87.1 - HYPO-OSMOLALITY AND HYPONATREMIA SNOMED Code(s): 03748228 (4) Alcohol abuse Current Visit: Yes Status: Acute Code(s): F10.10 - ALCOHOL ABUSE, UNCOMPLICATED SNOMED Code(s): 53362155 Plan: This patient is a 47-year-old male who was admitted to hospital with status epilepticus and severe hyponatremia. His serum sodium in the emergency room on admission was 112. He was initially placed on 3% normal saline and his sodium was slowly corrected over the last several days. His serum sodium today is 125. Patient was extubated this morning and is following simple commands. Neurological exam reveals ptosis of the left eyelid. He still has some twitching of his left arm which appears to be likely myoclonus. We have recommended the patient undergo MRI of the brain today for further evaluation. His EEG done yesterday failed to reveal any focal seizure to explain his left arm twitching. We will continue close neurological follow-up for this patient in the intensive care unit. His overall prognosis at this time remains very guarded.
--- NOTE | 2018-02-07 21:53 | MR ---
EXAMINATION TYPE: MR brain wo con DATE OF EXAM: 02/07/2018 COMPARISON: None HISTORY: Seizure, left sided weakness Standard multiplanar, multisequence MRI departmental protocol Multiplanar, multisequence images of the brain were acquired. Diffusion weighted imaging was performe d. FINDINGS: There is some diffuse cerebral cortical atrophy. There is no mass effect nor midline shift. There is no evidence of intracranial hemorrhage. There is increased signal on the T2 and FLAIR image s in the medial right temporal lobe adjacent to the temporal horn of the lateral ventricle. This is i n the hippocampus. There is no evidence of cortical infarct. The corpus callosum shows mild thinning. The brainstem is intact. The sella turcica appears normal. IMPRESSION: There is some cerebral atrophy that is noticeable for the patient's age. Hippocampal increased signal on the right side could relate to ischemia. No evidence of cortical infarct.
[2018-02-07] MEDS: MULTIVITAMINS, THERA LIQUID 237 ML BOTTLE NG-TUBE SCH (22:01)
[2018-02-07] MEDS: THIAMINE 100 MG TAB PO SCH (22:01)
[2018-02-07] MEDS: FOLIC ACID 1 MG TAB NG-TUBE SCH (22:01)
[2018-02-07] MEDS: SODIUM CHLORIDE 0.9% 1,000 ML IV SCH (22:03)
[2018-02-08] MEDS: SODIUM CHLORIDE 0.9% 1,000 ML IV SCH ×2 (04:48→06:53)
[2018-02-08] MEDS: PIPERACILLIN-TAZOBACTAM 3.375 GM in DEXTROSE/WATER 1 50ML.BAG IVPB SCH ×3 (04:48→15:59)
[2018-02-08 05:09] LABS: Anion Gap 9 mmol/L; Blood Urea Nitrogen 6 mg/dL (9-20); Calcium 8.8 mg/dL (8.4-10.2); Carbon Dioxide 24 mmol/L (22-30); Chloride 95 mmol/L (98-107); Glucose 94 mg/dL (74-99); Magnesium 1.5 mg/dL (1.6-2.3); Phosphorus 2.3 mg/dL (2.5-4.5); Potassium 3.9 mmol/L (3.5-5.1); Sodium 128 mmol/L (137-145)
[2018-02-08 05:15] LABS: Basophils # (A) 0.1 k/uL (0-0.2); Basophils % (A) 1 %; Eosinophils # (A) 0.3 k/uL (0-0.7); Eosinophils % (A) 2 %; HCT 35.6 % (39.0-53.0); Lymphocytes # (A) 1.4 k/uL (1.0-4.8); Lymphocytes % (A) 11 %; MCH 34.2 pg (25.0-35.0); MCHC 33.8 g/dL (31.0-37.0); MCV 101.3 fL (80.0-100.0); Macrocytosis Slight; Mean Platelet Volume 6.5; Monocytes % (A) 8 %; Neutrophils # (A) 9.6 k/uL (1.3-7.7); Neutrophils % (A) 75 %; Platelet Count 363 k/uL (150-450); RBC 3.51 m/uL (4.30-5.90); RDW 13.3 % (11.5-15.5); WBC 12.7 k/uL (3.8-10.6)
[2018-02-08] MEDS ORDERED: POTASSIUM PHOSPHATE 10 MMOL in SODIUM CHLORIDE 0.9% 250 ML IV ONE (07:00)
--- NOTE | 2018-02-08 08:56 | XR ---
EXAMINATION TYPE: XR chest 1V portable DATE OF EXAM: 02/08/2018 COMPARISON: Prior chest x-ray 02/07/2018 HISTORY: Interval extubation, abnormal chest x-ray TECHNIQUE: Single frontal view of the chest is obtained. FINDINGS: Endotracheal tube and NG tube have been removed. Minimal patchy basilar density persists. No pneumothorax or pleural effusion. Cardiomediastinal silhouette, pulmonary vascularity and vahid are stable accounting for differences in technique. There are overlying cardiac leads. IMPRESSION: Correlate for pneumonia, basilar atelectasis
[2018-02-08] MEDS: CHLORHEXIDINE GLUCONATE 15 ML CUP MUCOUS MEM SCH (09:27)
[2018-02-08] MEDS: NICOTINE 21MG/24HR PATCH TRANSDERM SCH (09:33)
[2018-02-08] MEDS: ENOXAPARIN 40 MG/0.4 ML SYRINGE SQ SCH (09:33)
[2018-02-08] MEDS: PANTOPRAZOLE 40 MG/10 ML VIAL IV SCH (09:36)
[2018-02-08] MEDS: levETIRAcetam IV 750 MG in SODIUM CHLORIDE 0.9% 100 ML IVPB SCH ×2 (09:36→21:00)
[2018-02-08] MEDS: MAGNESIUM SULFATE-D5W PMX 1 GM in DEXTROSE/WATER 1 100ML.BAG IVPB SCH ×2 (10:02→11:20)
[2018-02-08] MEDS: IPRATROPIUM-ALBUTEROL 3 ML NEB INHALATION SCH ×4 (10:55→19:56)
--- NOTE | 2018-02-08 11:01 | P.PN ---
Subjective Progress Note Date: 02/07/18 Principal diagnosis: Acute respiratory failure, status epilepticus and hyponatremia This is a 47-year-old white male with history of alcoholism, patient has been complaining of multiple GI symptoms mostly nausea and vomiting for the last few days. Patient was found by his girlfriend having active tonic-clonic seizure and 911 was immediately called. EMS arrived, patient was noted to have a generalized tonic-clonic seizure. IV access was established, patient was given Ativan and Versed, seizure did not seem to stop. Apparently patient went on to continue seizing for about 30 minutes, and upon arrival to the ER, patient was still in status epilepticus. Patient was intubated by the ER physician, CT of the brain showed no significant abnormality, however his serum sodium came back quite low at 112. Patient was placed on hypertonic saline overnight, and his sodium went up from last night until early this morning up to 117. His 3% saline was discontinued, patient was seen by neurology on consultation and he was placed on more seizure medications. Seizures were finally controlled, patient is now on propofol drip, he is also on Keppra, and he is on mechanical ventilation. Objective - Vital Signs Vital signs: Vital Signs Temp 99.1 F 02/07/18 12:00 Pulse 91 02/07/18 12:00 Resp 14 02/07/18 12:00 BP 109/78 02/07/18 12:00 Pulse Ox 94 L 02/07/18 12:00 Intake & Output 02/06/18 02/07/18 02/07/18 18:59 06:59 18:59 Intake Total 8993.104 1091.5 730 Output Total 1474 1365 465 Balance 402.117 457.5 265 Weight 57.4 kg Intake: IV 1512.5 1262.5 550 0.9 at 75 525 900 450 Magnesium Sulfate-D5w Pmx 200 200 1 gm In Dextrose/Water 1 100ml.bag @ 100 mls/hr IVPB ONCE ONE Rx#: [id number] Piperacillin-Tazobactam 3 87.5 62.5 .375 gm In Dextrose/Water 1 50ml.bag @ 12.5 mls/hr IVPB Q8HR [facility] Rx#: [id number] Potassium Phosphate 10 500 mmol In Sodium Chloride 0 .9% 250 ml @ 125 mls/hr IV Q2H [facility] Rx#:[id number] Sodium Chloride 0.9% 1, 100 000 ml @ 50 mls/hr IV . Q20H [facility] Rx#:[id number] levETIRAcetam IV 750 mg 100 100 100 In Sodium Chloride 0.9% 100 ml @ 400 mls/hr IVPB Q12H [facility] Rx#:[id number] Intake, IV Titration 23.617 100 Amount Magnesium Sulfate-D5w Pmx 100 1 gm In Dextrose/Water 1 100ml.bag @ 100 mls/hr IVPB Q1H [facility] Rx#: [id number] Propofol 1,000 mg In 23.617 Empty Bag 1 bag @ Titrate IV .Q0M [facility] Rx#: [id number] Tube Feeding 250 440 80 Other 90 120 Output: Urine 1474 1365 465 Other: Voiding Method Indwelling Catheter Indwelling Catheter Indwelling Catheter # Bowel Movements 1 - Exam Physical Exam: Revealed a 47-year-old white male on mechanical ventilation, off propofol, myoclonic jerks noted in left upper and lower extremities. Patient seems to be very appropriate and followed all instructions. Head: Atraumatic, normocephalic. Endotracheal tube and nasogastric tube are intact. HEENT:[Neck is supple.] [No neck masses.] [No thyromegaly.] [No JVD.] Chest: [Minimal fine crackles at the bases.] No rhonchi, no wheezes, no chest wall tenderness. Cardiac Exam: [Normal S1 and S2, no S3 gallop, no murmur.] Abdomen: [Soft, nontender, no megaly, no rebound, no guarding, normal bowel sounds.] Extremities: [No clubbing, no edema, no cyanosis.] Neurological Exam: Off propofol, patient is opening eyes, following all instructions, but continues to have ongoing jerking of the left upper and left lower extremity. Psychiatric: Depressed mood, blunt affect. Follows instructions.. Lymphatics: No lymphadenopathy Skin: No rashes. - Labs CBC & Chem 7: 02/08/18 04:26 02/08/18 04:26 Labs: Abnormal Lab Results - Last 24 Hours (Table) 02/06/18 02/06/18 02/07/18 Range/Units 15:03 20:04 04:35 WBC 11.3 H (3.8-10.6) k/uL RBC 3.39 L (4.30-5.90) m/uL Hgb 11.5 L (13.0-17.5) gm/dL Hct 32.9 L (39.0-53.0) % Neutrophils # 8.7 H (1.3-7.7) k/uL ABG pH (7.35-7.45) ABG pO2 (83-108) mmHg ABG HCO3 (21-25) mmol/L ABG Total CO2 (19-24) mmol/L ABG O2 Saturation (94-97) % Sodium 120 L* 123 L (137-145) mmol/L Potassium 3.2 L (3.5-5.1) mmol/L Chloride (98-107) mmol/L BUN (9-20) mg/dL Creatinine (0.66-1.25) mg/dL Glucose (74-99) mg/dL Calcium (8.4-10.2) mg/dL Magnesium (1.6-2.3) mg/dL 02/07/18 02/07/18 02/07/18 Range/Units 04:35 07:51 09:22 WBC (3.8-10.6) k/uL RBC (4.30-5.90) m/uL Hgb (13.0-17.5) gm/dL Hct (39.0-53.0) % Neutrophils # (1.3-7.7) k/uL ABG pH 7.53 H (7.35-7.45) ABG pO2 81 L (83-108) mmHg ABG HCO3 33 H (21-25) mmol/L ABG Total CO2 34 H (19-24) mmol/L ABG O2 Saturation 97.3 H (94-97) % Sodium 123 L (137-145) mmol/L Potassium (3.5-5.1) mmol/L Chloride 85 L (98-107) mmol/L BUN 6 L (9-20) mg/dL Creatinine 0.40 L (0.66-1.25) mg/dL Glucose 117 H (74-99) mg/dL Calcium 8.2 L (8.4-10.2) mg/dL Magnesium 1.5 L 2.6 H (1.6-2.3) mg/dL Microbiology - Last 24 Hours (Table) 02/04/18 21:27 Gram Stain - Preliminary Sputum Sputum Culture - Preliminary Streptococcus pneumoniae 02/04/18 17:18 Blood Culture - Preliminary Blood No Growth after 48 hours 02/05/18 03:23 Urine Culture - Final Urine,Catheterized Assessment and Plan Assessment: 1. acute hypoxic respiratory failure secondary to status epilepticus/ new onset seizure. 2. acute hypovolemic hyponatremia, most likely the main contributing factor to his new onset seizure. Sodium corrected over the last 2 days from 112 up to 125 today. 3. recent episode of nausea vomiting and diarrhea/acute gastroenteritis, exact etiology is not clear. Patient presented with profound hypovolemia. And hypovolemic hyponatremia. With other electrolytes imbalance. 4. alcoholism and alcohol abuse. 5. severe hypokalemia again likely secondary to nausea vomiting and diarrhea. 6. acute contraction metabolic alkalosis. Continue IV fluid using 0.9 normal saline at 70 mL per hour. Time with Patient: Greater than 30
[2018-02-08] MEDS: LORazepam 2 MG/ML INJ IV PRN ×3 (11:31→18:00)
[2018-02-08] MEDS: FOLIC ACID 1 MG TAB PO SCH (12:28)
[2018-02-08] MEDS: THIAMINE 100 MG TAB PO SCH ×2 (12:29→15:59)
[2018-02-08] MEDS: MULTIVITAMINS, THERA LIQUID 237 ML BOTTLE PO SCH (12:29)
[2018-02-08] MEDS ORDERED: ACETAMINOPHEN IV (For NPO) 1,000 MG in EMPTY BAG 1 BAG IVPB PRN (14:00)
--- NOTE | 2018-02-08 14:48 | P.PN ---
Subjective Patient is seen in follow-up for hyponatremia. Patient presented to the hospital after witnessed tonic-clonic seizure. Sodium was 112 and he was given 3% initially. He was extubated February 07. Currently maintained on normal saline at 75 mL an hour. He did receive a dose of IV Lasix yesterday. Sodium level 128 this morning. Currently resting in bed. He failed swallow eval this morning. Currently nothing by mouth. Vital signs are stable. General: The patient appeared well nourished and normally developed. HEENT: Head exam is unremarkable. Neck is without jugular venous distension. Intubated. LUNGS: Lungs are clear to auscultation and percussion. Breath sounds decreased. HEART: Rate and Rhythm are regular. First and second heart sounds normal. No murmurs, rubs or gallops. ABDOMEN: Abdominal exam reveals normal bowel sounds. Non-tender and non- distended. No evidence of peritonitis. EXTREMITITES: No clubbing, cyanosis, or edema. Objective - Vital Signs Vital signs: Vital Signs Temp 98.5 F 02/08/18 11:02 Pulse 88 02/08/18 11:45 Resp 18 02/08/18 11:02 BP 125/92 02/08/18 11:02 Pulse Ox 98 02/08/18 11:02 Intake & Output 02/07/18 02/08/18 02/08/18 18:59 06:59 18:59 Intake Total 1605 550 225 Output Total 960 425 165 Balance 645 125 60 Weight 57.4 kg Intake: IV 1125 550 225 0.9 at 75 975 450 225 Piperacillin-Tazobactam 3 50 .375 gm In Dextrose/Water 1 50ml.bag @ 12.5 mls/hr IVPB Q8HR [facility] Rx#: [id number] levETIRAcetam IV 750 mg 100 100 In Sodium Chloride 0.9% 100 ml @ 400 mls/hr IVPB Q12H [facility] Rx#:[id number] Intake, IV Titration 300 Amount Magnesium Sulfate-D5w Pmx 100 1 gm In Dextrose/Water 1 100ml.bag @ 100 mls/hr IVPB Q1H [facility] Rx#: [id number] Potassium Chloride 10 meq 200 In Water For Injection 1 100ml.bag @ 100 mls/hr IVPB Q1H [facility] Rx#: [id number] Oral 100 Tube Feeding 80 Output: Urine 960 425 165 Other: Voiding Method Indwelling Catheter Indwelling Catheter Indwelling Catheter - Labs CBC & Chem 7: 02/08/18 04:26 02/08/18 04:26 Labs: Abnormal Lab Results - Last 24 Hours (Table) 02/07/18 02/08/18 02/08/18 Range/Units 17:08 04:26 04:26 WBC 12.7 H (3.8-10.6) k/uL RBC 3.51 L (4.30-5.90) m/uL Hgb 12.0 L (13.0-17.5) gm/dL Hct 35.6 L (39.0-53.0) % MCV 101.3 H (80.0-100.0) fL Neutrophils # 9.6 H (1.3-7.7) k/uL Sodium 125 L 128 L (137-145) mmol/L Chloride 95 L (98-107) mmol/L BUN 6 L (9-20) mg/dL Creatinine 0.40 L (0.66-1.25) mg/dL Phosphorus 2.3 L (2.5-4.5) mg/dL Magnesium 1.5 L (1.6-2.3) mg/dL Microbiology - Last 24 Hours (Table) 02/04/18 17:18 Blood Culture - Preliminary Blood No Growth after 72 hours Assessment and Plan Plan: Assessment: 1. Symptomatic hypoosmolar hyponatremia status post 3%. Sodium level of to 128 this morning. Urine sodium noted to be low sodium appears to be hypovolemic hyponatremia. 2. Seizure secondary to hyponatremia. Neurology following. 3. Severe hypokalemia. Etiology unclear. Unsure if patient was having any vomiting or diarrhea. Improved post replacement. 4. Metabolic alkalosis secondary to hypokalemia and hypochloremia leading to impaired bicarb secretion. Improved. 5. Hypophosphatemia from poor oral intake. 6. Hypomagnesemia from poor oral intake. Plan: Continue normal saline at 75 mL an hour. Magnesium and phosphorus have been replaced. Repeat electrolytes in the morning.
--- NOTE | 2018-02-08 15:02 | P.PN ---
Subjective Progress Note Date: 02/08/18 Principal diagnosis: Acute respiratory failure, status epilepticus, and hyponatremia. This is a 47-year-old white male with history of alcoholism, patient has been complaining of multiple GI symptoms mostly nausea and vomiting for the last few days. Patient was found by his girlfriend having active tonic-clonic seizure and 911 was immediately called. EMS arrived, patient was noted to have a generalized tonic-clonic seizure. IV access was established, patient was given Ativan and Versed, seizure did not seem to stop. Apparently patient went on to continue seizing for about 30 minutes, and upon arrival to the ER, patient was still in status epilepticus. Patient was intubated by the ER physician, CT of the brain showed no significant abnormality, however his serum sodium came back quite low at 112. Patient was placed on hypertonic saline overnight, and his sodium went up from last night until early this morning up to 117. His 3% saline was discontinued, patient was seen by neurology on consultation and he was placed on more seizure medications. Seizures were finally controlled, patient is now on propofol drip, he is also on Keppra, and he is on mechanical ventilation. Considering his admission to the ICU on mechanical ventilation, I was asked to see him on consultation. Patient is fully sedated at this point, and some of the information I obtained was from his mother who has been concerned about him and about the fact that he hasn't been eating and drinking much in spite of his chronic nausea vomiting and at times diarrhea. Presently patient is on mechanical ventilation, he is on tidal volume of 450 assist- control rate of 16 FiO2 of 50% and PEEP of 5. ABG this morning showed a pO2 of 76 pCO2 of 46 pH of 7.54. His sodium is up to 118 chloride is 69 BUN is 13 creatinine 0.45. Serum osmolality on admission was 236, urine osmolality was 407. And his urine sodium was 12 toxic screen was negative. And his serum alcohol was less than 10. Chest x-ray showed no active pulmonary disease, however considering the patient had a prolonged seizure and status epilepticus, he was placed empirically on Zosyn for presumptive aspiration. Patient was reevaluated today on 02/06/2018, remains on mechanical ventilation, his ventilator settings are tidal volume of 450 assist-control rate 16 FiO2 50% and PEEP of 5. Presently on 0.9 normal saline at 75 mL per hour. Sodium today is up to 121. Potassium is normal ABG showed a pO2 of 76 pCO2 of 43 pH of 7.56. Chest x-ray was reviewed, minimal basilar atelectasis is noted, possibility of aspiration pneumonia is not entirely ruled out, patient remains empirically on antibiotics. WBC count is 12.5 hemoglobin is 11.5. Renal profile is normal. Patient is not following any instructions, off propofol, continues to have some myoclonic jerks noted in the left upper extremity and left lower extremity. Been addressed by neurology, did not feel to be seizure related. I was able to discontinue propofol, and I plan to manage the patient with Ativan as needed. In the meantime he is still on antiseizure medications and treatment. Patient was reevaluated today on 02/07/2018, remains on mechanical ventilation, same ventilator settings, ABG was reviewed. PO2 was 81 pCO2 of 39 pH of 7.53. Sodium is up to 123. Patient remains on IV fluid in the form of 0.9 normal saline at 75 mL per hour. His sodium is being corrected very slowly, there is no reason to cut down the IV fluid and there is no reason at this point to use any Lasix. CBC is normal. Chest x-ray is relatively unremarkable. Hence I recommended a weaning trial using pressure support and CPAP, I evaluated the patient while he was on pressure support and CPAP for almost 20 minutes, and he was noted to do well. Continues to have significant jerking in the left upper and left lower extremity. According to the family this is a new finding. Patient remains on Keppra, and he is basically followed by neurology Patient was reevaluated today on 02/08/2018, has been tolerating the extubation quite well since yesterday. Patient is relatively asymptomatic, he had MRI done , some abnormalities noted on the MRI, not certain of their clinical significance at this point. Patient is hemodynamically stable, in no form of respiratory distress, seems to be mostly alert, oriented, continues to have the twitching and jerking movements of the left upper extremity and left lower extremity. Being followed closely by neurology. And have not commented on his MRI findings. CBC is relatively normal sodium is up to 128, it was 125 yesterday, and it is slowly being corrected. Rest of the labs were noted to be unremarkable. Hence I plan to transfer the patient today to a medical floor. Objective - Vital Signs Vital signs: Vital Signs Temp 98.0 F 02/08/18 14:48 Pulse 78 02/08/18 14:48 Resp 18 02/08/18 14:48 BP 139/90 02/08/18 14:48 Pulse Ox 96 02/08/18 14:48 Intake & Output 02/07/18 02/08/18 02/08/18 18:59 06:59 18:59 Intake Total 1605 550 225 Output Total 960 425 165 Balance 645 125 60 Weight 57.4 kg Intake: IV 1125 550 225 0.9 at 75 975 450 225 Piperacillin-Tazobactam 3 50 .375 gm In Dextrose/Water 1 50ml.bag @ 12.5 mls/hr IVPB Q8HR [facility] Rx#: [id number] levETIRAcetam IV 750 mg 100 100 In Sodium Chloride 0.9% 100 ml @ 400 mls/hr IVPB Q12H [facility] Rx#:[id number] Intake, IV Titration 300 Amount Magnesium Sulfate-D5w Pmx 100 1 gm In Dextrose/Water 1 100ml.bag @ 100 mls/hr IVPB Q1H [facility] Rx#: [id number] Potassium Chloride 10 meq 200 In Water For Injection 1 100ml.bag @ 100 mls/hr IVPB Q1H [facility] Rx#: [id number] Oral 100 Tube Feeding 80 Output: Urine 960 425 165 Other: Voiding Method Indwelling Catheter Indwelling Catheter Indwelling Catheter # Bowel Movements 1 - Exam Physical Exam: Revealed a 47-year-old white male on room air, in no distress. Head: Atraumatic, normocephalic. HEENT:[Neck is supple.] [No neck masses.] [No thyromegaly.] [No JVD.] Chest: [Minimal fine crackles at the bases.] No rhonchi, no wheezes, no chest wall tenderness. Cardiac Exam: [Normal S1 and S2, no S3 gallop, no murmur.] Abdomen: [Soft, nontender, no megaly, no rebound, no guarding, normal bowel sounds.] Extremities: [No clubbing, no edema, no cyanosis.] Neurological Exam: No gross focal neurologic deficit except for jerking movements of the left upper extremity and left lower extremity seems to be a bit better today compared to yesterday. Psychiatric: Depressed mood, blunt affect. Follows instructions.. Lymphatics: No lymphadenopathy Skin: No rashes. - Labs CBC & Chem 7: 02/08/18 04:26 02/08/18 04:26 Labs: Abnormal Lab Results - Last 24 Hours (Table) 02/07/18 02/08/18 02/08/18 Range/Units 17:08 04:26 04:26 WBC 12.7 H (3.8-10.6) k/uL RBC 3.51 L (4.30-5.90) m/uL Hgb 12.0 L (13.0-17.5) gm/dL Hct 35.6 L (39.0-53.0) % MCV 101.3 H (80.0-100.0) fL Neutrophils # 9.6 H (1.3-7.7) k/uL Sodium 125 L 128 L (137-145) mmol/L Chloride 95 L (98-107) mmol/L BUN 6 L (9-20) mg/dL Creatinine 0.40 L (0.66-1.25) mg/dL Phosphorus 2.3 L (2.5-4.5) mg/dL Magnesium 1.5 L (1.6-2.3) mg/dL Microbiology - Last 24 Hours (Table) 02/04/18 17:18 Blood Culture - Preliminary Blood No Growth after 72 hours Assessment and Plan Assessment: Impression: 1 acute hypoxic respiratory failure secondary to status epilepticus and a new onset seizure. 2 acute hypovolemic hyponatremia, most likely the main contributing factor to his new onset seizure. Sodium corrected over the last 2 days from 112 up to 123. Today. 3 recent episode of nausea vomiting and diarrhea/acute gastroenteritis, exact etiology is not clear. Patient presented with profound hypovolemia. And hypovolemic hyponatremia. With other electrolytes imbalance. 4 alcoholism and alcohol abuse. 5 severe hypokalemia again likely secondary to nausea vomiting and diarrhea. 6 acute contraction metabolic alkalosis. Continue IV fluid using 0.9 normal saline at 70 mL per hour. Recommendation: Continue present supportive care measures, will transfer the patient out of the ICU to a regular medical floor, will be followed by other consultants, and we'll see the patient on when necessary basis. Time with Patient: Less than 30
--- NOTE | 2018-02-08 18:14 | P.PN ---
Subjective Progress Note Date: 02/08/18 This patient is seen today in the ICU for seizure disorder and severe hyponatremia. The patient presented with status epilepticus to the emergency room. He was found to have initially severe hyponatremia with a serum sodium of 112. He was treated initially with 3% saline initially and his serum sodium today is 120. He was weaned off of Diprivan gradually and was able to be extubated this morning. He still has been noted to have some twitching of his left hand. For this reason a repeat EEG was performed yesterday and still reveals no evidence of epileptic seizure focus despite ongoing twitching of the left arm. We are waiting his Keppra level to return from the laboratory. Check with the laboratory today reveals his Keppra level to be 12.0 and is in a therapeutic range. The patient likely has moderate degree of encephalopathy secondary to the severe hyponatremia. As noted his EEG fails to reveal any focal seizure activity to explain his left arm twitching. We have recommended the patient to undergo an MRI of the brain for close evaluation of the brainstem region. His serum sodium today is been corrected and is 128. We will need to continue very slow replacement of his sodium level. The patient was transferred out of the intensive care unit to the medical floor today. He is seemingly doing much better according to family members who are at his bedside. He has had no further twitching of his left arm all of today. Patient was sent for MRI of the brain which was completed yesterday. MRI revealed cerebral atrophy and some increased signal along the right side of the hippocampus possibly related to mild ischemia. No evidence of cortical infarction. We have discussed all of these findings today in detail with the patient and his girlfriend and mother who are at bedside. He is showing improvement in his overall mental status. As noted there is been no further twitching of his left arm or left leg today. We will continue close neurological follow-up for the patient. Case was discussed today at length with his mother and girlfriend who were at bedside. All their questions were answered. We will continue close neurological follow-up with this patient in the intensive care unit. His overall prognosis at this time remains very guarded. Objective - Vital Signs Vital signs: Vital Signs Temp 99.0 F 02/08/18 04:00 Pulse 81 02/08/18 09:00 Resp 22 02/08/18 09:06 BP 129/90 02/08/18 08:00 Pulse Ox 96 02/08/18 09:00 Intake & Output 02/07/18 02/08/18 02/08/18 18:59 06:59 18:59 Intake Total 1605 550 225 Output Total 960 425 165 Balance 645 125 60 Weight 57.4 kg Intake: IV 1125 550 225 0.9 at 75 975 450 225 Piperacillin-Tazobactam 3 50 .375 gm In Dextrose/Water 1 50ml.bag @ 12.5 mls/hr IVPB Q8HR [facility] Rx#: [id number] levETIRAcetam IV 750 mg 100 100 In Sodium Chloride 0.9% 100 ml @ 400 mls/hr IVPB Q12H [facility] Rx#:[id number] Intake, IV Titration 300 Amount Magnesium Sulfate-D5w Pmx 100 1 gm In Dextrose/Water 1 100ml.bag @ 100 mls/hr IVPB Q1H [facility] Rx#: [id number] Potassium Chloride 10 meq 200 In Water For Injection 1 100ml.bag @ 100 mls/hr IVPB Q1H [facility] Rx#: [id number] Oral 100 Tube Feeding 80 Output: Urine 960 425 165 Other: Voiding Method Indwelling Catheter Indwelling Catheter Indwelling Catheter - Exam Physical Examination: PHYSICAL EXAMINATION: Patient is resting comfortably in bed. VITAL SIGNS: Blood pressure is [124/83]. Heart rate is [87]. Respiration is [21] . Temperature is [99.0]. HEENT: Head is atraumatic, neck is supple, there were no carotid bruits. CHEST: Lungs are clear to auscultation and percussion. CARDIAC: S1, S2 normal rate and rhythm. There is no murmur. ABDOMEN: Soft and nontender. Bowel sounds are present. EXTREMITIES: There is no pedal edema. Peripheral pulses are present. Neurological examination: Patient is examined in the intensive care unit. He was extubated this morning at 10:30 AM. He is now sitting up in bed and is awake and alert. He is able to follow simple commands. His memory and intellectual function slightly impaired. Cranial nerves II through XII are grossly intact. Patient does show evidence of mild ptosis of the left eyelid. Extraocular eye movements are intact. Motor examination: There was no pronator drift. Muscle tone is normal. Muscle strength is 4/5 throughout. Patient has occasional left arm twitching which is asynchronous. Sensory examination: Patient withdraws to pain overall extremities. Deep tendon reflexes: DTRs are 1+ and symmetric. Plantar responses flexor bilaterally. - Labs CBC & Chem 7: 02/08/18 04:26 02/08/18 04:26 Labs: Abnormal Lab Results - Last 24 Hours (Table) 02/07/18 02/08/18 02/08/18 Range/Units 17:08 04:26 04:26 WBC 12.7 H (3.8-10.6) k/uL RBC 3.51 L (4.30-5.90) m/uL Hgb 12.0 L (13.0-17.5) gm/dL Hct 35.6 L (39.0-53.0) % MCV 101.3 H (80.0-100.0) fL Neutrophils # 9.6 H (1.3-7.7) k/uL Sodium 125 L 128 L (137-145) mmol/L Chloride 95 L (98-107) mmol/L BUN 6 L (9-20) mg/dL Creatinine 0.40 L (0.66-1.25) mg/dL Phosphorus 2.3 L (2.5-4.5) mg/dL Magnesium 1.5 L (1.6-2.3) mg/dL Microbiology - Last 24 Hours (Table) 02/04/18 17:18 Blood Culture - Preliminary Blood No Growth after 72 hours 02/04/18 21:27 Gram Stain - Preliminary Sputum Sputum Culture - Preliminary Streptococcus pneumoniae Assessment and Plan (1) New onset seizure Current Visit: Yes Status: Acute Code(s): R56.9 - UNSPECIFIED CONVULSIONS SNOMED Code(s): 87995764 (2) Focal motor seizure Current Visit: Yes Status: Acute Code(s): G40.109 - LOCAL-REL SYMPTC EPI W SIMP PRT SEIZ,NOT NTRCT, W/O STAT EPI SNOMED Code(s): 747207954 (3) Hyponatremia Current Visit: Yes Status: Acute Code(s): E87.1 - HYPO-OSMOLALITY AND HYPONATREMIA SNOMED Code(s): 56427877 (4) Alcohol abuse Current Visit: Yes Status: Acute Code(s): F10.10 - ALCOHOL ABUSE, UNCOMPLICATED SNOMED Code(s): 45204767 Plan: This patient is a 47-year-old male who was admitted to hospital with status epilepticus and severe hyponatremia. His serum sodium in the emergency room on admission was 112. He was initially placed on 3% normal saline and his sodium was slowly corrected over the last several days. His serum sodium today is 128. Patient was extubated this morning and is following simple commands. Patient was transferred to the medical floor today. He is doing much better today and has no further evidence for left-sided arm or leg twitching. He underwent MRI of the brain the results which are noted above. His EEG done yesterday failed to reveal any focal seizure to explain his left arm twitching. Today on the medical floor he is much more awake and alert and is following all commands. As noted he has had no further twitching of the left arm or leg. We will continue close neurological follow-up with the patient. He is to continue on his current dose of Keppra. His overall prognosis at this time remains very guarded.
[2018-02-09] MEDS: PIPERACILLIN-TAZOBACTAM 3.375 GM in DEXTROSE/WATER 1 50ML.BAG IVPB SCH ×2 (00:17→08:19)
[2018-02-09] MEDS: LORazepam 2 MG/ML INJ IV PRN ×3 (00:18→23:53)
[2018-02-09] MEDS: NICOTINE 21MG/24HR PATCH TRANSDERM SCH (08:19)
[2018-02-09] MEDS: PANTOPRAZOLE 40 MG/10 ML VIAL IV SCH (08:20)
[2018-02-09] MEDS: ENOXAPARIN 40 MG/0.4 ML SYRINGE SQ SCH (08:20)
[2018-02-09 08:36] LABS: Basophils # (A) 0.1 k/uL (0-0.2); Basophils % (A) 1 %; Eosinophils # (A) 0.3 k/uL (0-0.7); Eosinophils % (A) 4 %; HCT 38.4 % (39.0-53.0); HGB 12.8 gm/dL (13.0-17.5); Lymphocytes # (A) 1.2 k/uL (1.0-4.8); Lymphocytes % (A) 15 %; MCH 33.6 pg (25.0-35.0); MCHC 33.2 g/dL (31.0-37.0); MCV 101.2 fL (80.0-100.0); Macrocytosis Slight; Mean Platelet Volume 6.9; Monocytes # (A) 0.7 k/uL (0-1.0); Monocytes % (A) 10 %; Neutrophils # (A) 5.1 k/uL (1.3-7.7); Neutrophils % (A) 67 %; Platelet Count 373 k/uL (150-450); RBC 3.79 m/uL (4.30-5.90); RDW 13.1 % (11.5-15.5); WBC 7.5 k/uL (3.8-10.6)
[2018-02-09] MEDS: IPRATROPIUM-ALBUTEROL 3 ML NEB INHALATION SCH ×4 (09:00→20:45)
[2018-02-09 09:03] LABS: Anion Gap 13 mmol/L; Blood Urea Nitrogen 6 mg/dL (9-20); Calcium 8.3 mg/dL (8.4-10.2); Carbon Dioxide 18 mmol/L (22-30); Chloride 102 mmol/L (98-107); Glucose 82 mg/dL (74-99); Magnesium 1.5 mg/dL (1.6-2.3); Phosphorus 3.9 mg/dL (2.5-4.5); Potassium 3.7 mmol/L (3.5-5.1); Sodium 133 mmol/L (137-145)
[2018-02-09] MEDS: levETIRAcetam IV 750 MG in SODIUM CHLORIDE 0.9% 100 ML IVPB SCH ×2 (10:14→20:56)
[2018-02-09] MEDS: THIAMINE 100 MG TAB PO SCH ×2 (12:02→17:34)
[2018-02-09] MEDS: FOLIC ACID 1 MG TAB PO SCH (12:02)
[2018-02-09] MEDS: MULTIVITAMINS, THERA LIQUID 237 ML BOTTLE PO SCH (12:02)
--- NOTE | 2018-02-09 13:23 | P.PN ---
Subjective Progress Note Date: 02/08/18 Principal diagnosis: Acute respiratory failure, status epilepticus and hyponatremia This is a 47-year-old white male with history of alcoholism, patient has been complaining of multiple GI symptoms mostly nausea and vomiting for the last few days. Patient was found by his girlfriend having active tonic-clonic seizure and 911 was immediately called. EMS arrived, patient was noted to have a generalized tonic-clonic seizure. IV access was established, patient was given Ativan and Versed, seizure did not seem to stop. Apparently patient went on to continue seizing for about 30 minutes, and upon arrival to the ER, patient was still in status epilepticus. Patient was intubated by the ER physician, CT of the brain showed no significant abnormality, however his serum sodium came back quite low at 112. Patient was placed on hypertonic saline overnight, and his sodium went up from last night until early this morning up to 117. His 3% saline was discontinued, patient was seen by neurology on consultation and he was placed on more seizure medications. Seizures were finally controlled, patient is now on propofol drip, he is also on Keppra, and he is on mechanical ventilation. 02/08/2018 Patient is seen and evaluated in the room in ICU bedside; patient was successfully extubated yesterday; he is awake and alert and able to answer questions; repeat EEG done on 02/06/2018 did not show any evidence of epileptic seizure focus; patient continues to have twitching of the left arm; Keppra levels are in therapeutic range; neurology recommending continued monitoring and encephalopathy possibly secondary to severe hyponatremia and recommending patient to undergo MRI of the brain for evaluation of brain stem region,. Objective - Vital Signs Vital signs: Vital Signs Temp 99.0 F 02/08/18 04:00 Pulse 81 02/08/18 09:00 Resp 22 02/08/18 09:06 BP 129/90 02/08/18 08:00 Pulse Ox 96 02/08/18 09:00 Intake & Output 02/07/18 02/08/18 02/08/18 18:59 06:59 18:59 Intake Total 1605 550 225 Output Total 960 425 165 Balance 645 125 60 Weight 57.4 kg Intake: IV 1125 550 225 0.9 at 75 975 450 225 Piperacillin-Tazobactam 3 50 .375 gm In Dextrose/Water 1 50ml.bag @ 12.5 mls/hr IVPB Q8HR [facility] Rx#: [id number] levETIRAcetam IV 750 mg 100 100 In Sodium Chloride 0.9% 100 ml @ 400 mls/hr IVPB Q12H [facility] Rx#:[id number] Intake, IV Titration 300 Amount Magnesium Sulfate-D5w Pmx 100 1 gm In Dextrose/Water 1 100ml.bag @ 100 mls/hr IVPB Q1H [facility] Rx#: [id number] Potassium Chloride 10 meq 200 In Water For Injection 1 100ml.bag @ 100 mls/hr IVPB Q1H [facility] Rx#: [id number] Oral 100 Tube Feeding 80 Output: Urine 960 425 165 Other: Voiding Method Indwelling Catheter Indwelling Catheter Indwelling Catheter - Exam Physical Exam: Revealed a 47-year-old white male on mechanical ventilation, off propofol, myoclonic jerks noted in left upper and lower extremities. Patient seems to be very appropriate and followed all instructions. Head: Atraumatic, normocephalic. Endotracheal tube and nasogastric tube are intact. HEENT:[Neck is supple.] [No neck masses.] [No thyromegaly.] [No JVD.] Chest: [Minimal fine crackles at the bases.] No rhonchi, no wheezes, no chest wall tenderness. Cardiac Exam: [Normal S1 and S2, no S3 gallop, no murmur.] Abdomen: [Soft, nontender, no megaly, no rebound, no guarding, normal bowel sounds.] Extremities: [No clubbing, no edema, no cyanosis.] Neurological Exam: Off propofol, patient is opening eyes, following all instructions, but continues to have ongoing jerking of the left upper and left lower extremity. Psychiatric: Depressed mood, blunt affect. Follows instructions.. Lymphatics: No lymphadenopathy Skin: No rashes. - Labs CBC & Chem 7: 02/08/18 04:26 02/08/18 04:26 Labs: Abnormal Lab Results - Last 24 Hours (Table) 02/07/18 02/08/18 02/08/18 Range/Units 17:08 04:26 04:26 WBC 12.7 H (3.8-10.6) k/uL RBC 3.51 L (4.30-5.90) m/uL Hgb 12.0 L (13.0-17.5) gm/dL Hct 35.6 L (39.0-53.0) % MCV 101.3 H (80.0-100.0) fL Neutrophils # 9.6 H (1.3-7.7) k/uL Sodium 125 L 128 L (137-145) mmol/L Chloride 95 L (98-107) mmol/L BUN 6 L (9-20) mg/dL Creatinine 0.40 L (0.66-1.25) mg/dL Phosphorus 2.3 L (2.5-4.5) mg/dL Magnesium 1.5 L (1.6-2.3) mg/dL Microbiology - Last 24 Hours (Table) 02/04/18 17:18 Blood Culture - Preliminary Blood No Growth after 72 hours 02/04/18 21:27 Gram Stain - Preliminary Sputum Sputum Culture - Preliminary Streptococcus pneumoniae Assessment and Plan Assessment: 1. acute hypoxic respiratory failure secondary to status epilepticus/ new onset seizure; status post extubation 2. acute hypovolemic hyponatremia, most likely the main contributing factor to his new onset seizure. Sodium corrected over the last 2 days from 112 up to 125 today. 3. recent episode of nausea vomiting and diarrhea/acute gastroenteritis, exact etiology is not clear. Patient presented with profound hypovolemia. And hypovolemic hyponatremia. With other electrolytes imbalance. 4. alcoholism and alcohol abuse. 5. severe hypokalemia again likely secondary to nausea vomiting and diarrhea. 6. acute contraction metabolic alkalosis. Continue IV fluid using 0.9 normal saline at 70 mL per hour.
--- NOTE | 2018-02-09 13:30 | P.PN ---
Subjective Progress Note Date: 02/09/18 Principal diagnosis: Acute respiratory failure, status epilepticus and hyponatremia This is a 47-year-old white male with history of alcoholism, patient has been complaining of multiple GI symptoms mostly nausea and vomiting for the last few days. Patient was found by his girlfriend having active tonic-clonic seizure and 911 was immediately called. EMS arrived, patient was noted to have a generalized tonic-clonic seizure. IV access was established, patient was given Ativan and Versed, seizure did not seem to stop. Apparently patient went on to continue seizing for about 30 minutes, and upon arrival to the ER, patient was still in status epilepticus. Patient was intubated by the ER physician, CT of the brain showed no significant abnormality, however his serum sodium came back quite low at 112. Patient was placed on hypertonic saline overnight, and his sodium went up from last night until early this morning up to 117. His 3% saline was discontinued, patient was seen by neurology on consultation and he was placed on more seizure medications. Seizures were finally controlled, patient is now on propofol drip, he is also on Keppra, and he is on mechanical ventilation. 02/08/2018 Patient is seen and evaluated in the room in ICU bedside; patient was successfully extubated yesterday; he is awake and alert and able to answer questions; repeat EEG done on 02/06/2018 did not show any evidence of epileptic seizure focus; patient continues to have twitching of the left arm; Keppra levels are in therapeutic range; neurology recommending continued monitoring and encephalopathy possibly secondary to severe hyponatremia and recommending patient to undergo MRI of the brain for evaluation of brain stem region,. 02/09/2018; Patient is successfully extubated and transferred to general medical floor; patient remains hemodynamically stable postextubation; patient had MRI done which is not of clinical significance at this point; patient continues to have twitching and jerking movements of the left upper extremity and left lower extremity; neurology is following and further recommendations post MRI are pending. Patient's sodium is improved to 133 this morning; rest of the labs remained stable Objective - Vital Signs Vital signs: Vital Signs Temp 99.2 F 02/09/18 07:00 Pulse 84 02/09/18 12:50 Resp 18 02/09/18 07:00 BP 154/91 02/09/18 07:00 Pulse Ox 98 02/09/18 07:00 Intake & Output 02/08/18 02/09/18 02/09/18 18:59 06:59 18:59 Intake Total 225 850 Output Total 165 Balance 60 850 Weight 57.4 kg 58.5 kg Intake: IV 225 750 0.9 at 75 225 600 Piperacillin-Tazobactam 3 50 .375 gm In Dextrose/Water 1 50ml.bag @ 12.5 mls/hr IVPB Q8HR [facility] Rx#: [id number] levETIRAcetam IV 750 mg 100 In Sodium Chloride 0.9% 100 ml @ 400 mls/hr IVPB Q12H [facility] Rx#:[id number] Intake, IV Titration 100 Amount Magnesium Sulfate-D5w Pmx 100 1 gm In Dextrose/Water 1 100ml.bag @ 100 mls/hr IVPB Q1H [facility] Rx#: [id number] Output: Urine 165 Other: Voiding Method Urinal Urinal Diaper Diaper Incontinent Incontinent # Voids 2 # Bowel Movements 1 - Exam Physical Exam: Revealed a 47-year-old white male on mechanical ventilation, off propofol, myoclonic jerks noted in left upper and lower extremities. Patient seems to be very appropriate and followed all instructions. Head: Atraumatic, normocephalic. Endotracheal tube and nasogastric tube are intact. HEENT:[Neck is supple.] [No neck masses.] [No thyromegaly.] [No JVD.] Chest: [Minimal fine crackles at the bases.] No rhonchi, no wheezes, no chest wall tenderness. Cardiac Exam: [Normal S1 and S2, no S3 gallop, no murmur.] Abdomen: [Soft, nontender, no megaly, no rebound, no guarding, normal bowel sounds.] Extremities: [No clubbing, no edema, no cyanosis.] Neurological Exam: Off propofol, patient is opening eyes, following all instructions, but continues to have ongoing jerking of the left upper and left lower extremity. Psychiatric: Depressed mood, blunt affect. Follows instructions.. Lymphatics: No lymphadenopathy Skin: No rashes. - Labs CBC & Chem 7: 02/09/18 07:51 02/09/18 07:51 Labs: Abnormal Lab Results - Last 24 Hours (Table) 02/09/18 02/09/18 Range/Units 07:51 07:51 RBC 3.79 L (4.30-5.90) m/uL Hgb 12.8 L (13.0-17.5) gm/dL Hct 38.4 L (39.0-53.0) % MCV 101.2 H (80.0-100.0) fL Sodium 133 L (137-145) mmol/L Carbon Dioxide 18 L (22-30) mmol/L BUN 6 L (9-20) mg/dL Creatinine 0.39 L (0.66-1.25) mg/dL Calcium 8.3 L (8.4-10.2) mg/dL Magnesium 1.5 L (1.6-2.3) mg/dL Microbiology - Last 24 Hours (Table) 02/04/18 21:27 Gram Stain - Final Sputum Sputum Culture - Final Streptococcus pneumoniae 02/04/18 17:18 Blood Culture - Preliminary Blood No Growth after 96 hours Assessment and Plan Assessment: 1. acute hypoxic respiratory failure secondary to status epilepticus/ new onset seizure; - status post extubation; remains hemodynamically stable 2. acute hypovolemic hyponatremia, most likely the main contributing factor to his new onset seizure. Sodium corrected over the last 2 days from 125 to 133 today. - Continue with slow correction of sodium with normal saline at 75 mL an hour - Continue to monitor electrolytes and renal function and replace as needed 3. recent episode of nausea vomiting and diarrhea/acute gastroenteritis, exact etiology is not clear. Patient presented with profound hypovolemia. And hypovolemic hyponatremia. With other electrolytes imbalance. 4. alcoholism and alcohol abuse. 5. severe hypokalemia again likely secondary to nausea vomiting and diarrhea; resolved. - We will continue to monitor electrolytes closely 6. acute contraction metabolic alkalosis. Continue IV fluid using 0.9 normal saline at 70 mL per hour. - Nephrology is following; we'll continue to follow the recommendations Time with Patient: Greater than 30
[2018-02-09] MEDS: cefTRIAXone IN SWFI 1,000 MG/10 ML SYRINGE IVP SCH (15:49)
[2018-02-09] MEDS: SODIUM CHLORIDE 0.9% 1,000 ML IV SCH (15:51)
--- NOTE | 2018-02-09 16:07 | P.PN ---
Subjective Progress Note Date: 02/09/18 This patient is seen today in the ICU for seizure disorder and severe hyponatremia. The patient presented with status epilepticus to the emergency room. He was found to have initially severe hyponatremia with a serum sodium of 112. He was treated initially with 3% saline initially and his serum sodium today is 120. He was weaned off of Diprivan gradually and was able to be extubated this morning. He still has been noted to have some twitching of his left hand. For this reason a repeat EEG was performed yesterday and still reveals no evidence of epileptic seizure focus despite ongoing twitching of the left arm. We are waiting his Keppra level to return from the laboratory. Check with the laboratory today reveals his Keppra level to be 12.0 and is in a therapeutic range. The patient likely has moderate degree of encephalopathy secondary to the severe hyponatremia. As noted his EEG fails to reveal any focal seizure activity to explain his left arm twitching. We have recommended the patient to undergo an MRI of the brain for close evaluation of the brainstem region. His serum sodium today is been corrected and is 133 today. We will need to continue very slow replacement of his sodium level. The patient was transferred out of the intensive care unit to the medical floor today. He is seemingly doing much better according to family members who are at his bedside. He has had no further twitching of his left arm all of today. Patient was sent for MRI of the brain which was completed yesterday. MRI revealed cerebral atrophy and some increased signal along the right side of the hippocampus possibly related to mild ischemia vs demyelination. No evidence of cortical infarction. This questionable abnormality on his MRI may be related to his severe hyponatremia. We have discussed all of these findings today in detail with the patient and his girlfriend and mother who are at bedside. He is showing improvement in his overall mental status. As noted there is been no further twitching of his left arm or left leg today. Once again we did question the patient as well as his mother who is at bedside and there is been no further twitching of his left arm or leg today. Nursing staff also confirms no evidence of left-sided twitching today. Patient is much more awake and alert today and is appropriate and answering all of his questions. Mother also notes this is the best mental status that she has seen since having him coming out of the intensive care unit. Patient has very little memory of this stay in the ICU. We will continue close neurological follow-up for the patient. Case was discussed today at length with his mother who is at bedside. She has been very pleased with his improved neurological status and cognitive functioning today as compared to his initial presentation to the ICU. We will continue close neurological follow-up with this patient in the intensive care unit. His overall prognosis at this time remains very guarded. Objective - Vital Signs Vital signs: Vital Signs Temp 99.2 F 02/09/18 07:00 Pulse 88 02/09/18 07:00 Resp 18 02/09/18 07:00 BP 154/91 02/09/18 07:00 Pulse Ox 98 02/09/18 07:00 Intake & Output 02/08/18 02/09/18 02/09/18 18:59 06:59 18:59 Intake Total 225 850 Output Total 165 Balance 60 850 Weight 57.4 kg Intake: IV 225 750 0.9 at 75 225 600 Piperacillin-Tazobactam 3 50 .375 gm In Dextrose/Water 1 50ml.bag @ 12.5 mls/hr IVPB Q8HR DANIS Rx#: [id number] levETIRAcetam IV 750 mg 100 In Sodium Chloride 0.9% 100 ml @ 400 mls/hr IVPB Q12H DANIS Rx#:[id number] Intake, IV Titration 100 Amount Magnesium Sulfate-D5w Pmx 100 1 gm In Dextrose/Water 1 100ml.bag @ 100 mls/hr IVPB Q1H DANIS Rx#: [id number] Output: Urine 165 Other: Voiding Method Urinal Urinal Diaper Diaper Incontinent Incontinent # Voids 2 # Bowel Movements 1 - Exam Physical Examination: PHYSICAL EXAMINATION: Patient is resting comfortably in bed. VITAL SIGNS: Blood pressure is [154/91]. Heart rate is [88]. Respiration is [18] . Temperature is [99.2]. HEENT: Head is atraumatic, neck is supple, there were no carotid bruits. CHEST: Lungs are clear to auscultation and percussion. CARDIAC: S1, S2 normal rate and rhythm. There is no murmur. ABDOMEN: Soft and nontender. Bowel sounds are present. EXTREMITIES: There is no pedal edema. Peripheral pulses are present. Neurological examination: Patient is examined on the medical floor today and is awake alert and oriented x 3. His speech is fluent with no evidence of any aphasia or dysarthria. His memory and intellectual functions much improved. Cranial nerves II through XII are grossly intact. Motor examination: Patient has no evidence of twitching or myoclonus involving his left upper or lower extremity on examination today. Muscle strength is normal. Deep tendon reflexes: DTRs are 1+ and symmetric. Plantar responses flexor bilaterally. - Labs CBC & Chem 7: 02/09/18 07:51 02/09/18 07:51 Labs: Abnormal Lab Results - Last 24 Hours (Table) 02/09/18 02/09/18 Range/Units 07:51 07:51 RBC 3.79 L (4.30-5.90) m/uL Hgb 12.8 L (13.0-17.5) gm/dL Hct 38.4 L (39.0-53.0) % MCV 101.2 H (80.0-100.0) fL Sodium 133 L (137-145) mmol/L Carbon Dioxide 18 L (22-30) mmol/L BUN 6 L (9-20) mg/dL Creatinine 0.39 L (0.66-1.25) mg/dL Calcium 8.3 L (8.4-10.2) mg/dL Magnesium 1.5 L (1.6-2.3) mg/dL Microbiology - Last 24 Hours (Table) 02/04/18 21:27 Gram Stain - Final Sputum Sputum Culture - Final Streptococcus pneumoniae 02/04/18 17:18 Blood Culture - Preliminary Blood No Growth after 96 hours Assessment and Plan (1) New onset seizure Current Visit: Yes Status: Acute Code(s): R56.9 - UNSPECIFIED CONVULSIONS SNOMED Code(s): 69935529 (2) Focal motor seizure Current Visit: Yes Status: Acute Code(s): G40.109 - LOCAL-REL SYMPTC EPI W SIMP PRT SEIZ,NOT NTRCT, W/O STAT EPI SNOMED Code(s): 657715300 (3) Hyponatremia Current Visit: Yes Status: Acute Code(s): E87.1 - HYPO-OSMOLALITY AND HYPONATREMIA SNOMED Code(s): 98085400 (4) Alcohol abuse Current Visit: Yes Status: Acute Code(s): F10.10 - ALCOHOL ABUSE, UNCOMPLICATED SNOMED Code(s): 94762016 Plan: This patient is a 47-year-old male who was admitted to hospital with status epilepticus and severe hyponatremia. His serum sodium in the emergency room on admission was 112. He was initially placed on 3% normal saline and his sodium was slowly corrected over the last several days. His serum sodium today is 128. Patient was extubated yesterday morning and was following simple commands. Patient was transferred to the medical floor yesterday. He is doing much better today and has no further evidence for left-sided arm or leg twitching. He underwent MRI of the brain the results which are noted above. His EEG done yesterday failed to reveal any focal seizure to explain his left arm twitching. Today on the medical floor he is much more awake and alert and is following all commands. As noted he has had no further twitching of the left arm or leg. This was confirmed by his mother who is been present this morning. She has not seen any further twitching of his left arm or leg. Nursing staff seen him this morning also not noted any twitching of his left arm or leg. We reviewed his serum sodium today which is 133. He is making very good progress and is much more awake and alert in terms of his cognitive function. We will continue close neurological follow-up with the patient. He is to continue on his current dose of Keppra. We will obtain a Keppra blood level tomorrow morning. His last level was therapeutic at 12.0. His overall prognosis at this time remains very guarded. His case was discussed at length today with his mother was at bedside. All of her questions were answered. She is been very pleased with his slow but good recovery. We will continue close neurological follow-up at this patient during this admission.
--- NOTE | 2018-02-09 17:27 | PN ---
PROGRESS NOTE Patient is seen for followup for hyponatremia. His sodium continues to improve, which is up to 133 today from 128 today. PHYSICAL EXAMINATION: Patient is currently sitting up in bed. He is comfortable. He is not in any acute distress. Heart rate is 51 per minute, blood pressure 143/83. The patient is afebrile. Examination of the heart S1, S2. Examination of the lungs bilateral breath sounds are heard. Abdomen is soft, nontender. Examination of lower extremities shows no evidence of edema. CADD DRAFTER exam is grossly intact. LABS SHOW: Sodium 133, potassium 3.7, BUN 6, serum creatinine 0.39, magnesium 1.5. ASSESSMENT: 1. Hyponatremia, mainly hypovolemic status post 3% saline initially given the acute . Sodium is up to 133 now. 2. Severe hypokalemia status post replacement. 3. Seizure associated with electrolyte imbalance/hyponatremia, currently improved. Patient is being followed by Neurology. 4. Hypomagnesemia. Will replace. 5. Hypophosphatemia from decreased oral intake. PLAN: Replace magnesium. Continue with saline. Encourage increased oral intake. MMODL / IJN: [id number] /
[2018-02-09] MEDS ORDERED: Magnesium Replacement Protocol 1 EACH MISC MISCELLANE PRN (17:33)
[2018-02-09] MEDS: MAGNESIUM SULFATE-D5W PMX 1 GM in DEXTROSE/WATER 1 100ML.BAG IVPB SCH ×2 (18:46→20:56)
[2018-02-10] MEDS: levETIRAcetam IV 750 MG in SODIUM CHLORIDE 0.9% 100 ML IVPB SCH ×2 (07:47→21:31)
[2018-02-10] MEDS: ENOXAPARIN 40 MG/0.4 ML SYRINGE SQ SCH (07:47)
[2018-02-10] MEDS: NICOTINE 21MG/24HR PATCH TRANSDERM SCH (07:47)
[2018-02-10] MEDS: SODIUM CHLORIDE 0.9% 1,000 ML IV SCH ×3 (07:48→16:36)
[2018-02-10] MEDS: PANTOPRAZOLE 40 MG/10 ML VIAL IV SCH (07:48)
[2018-02-10] MEDS: IPRATROPIUM-ALBUTEROL 3 ML NEB INHALATION SCH ×4 (08:12→18:35)
[2018-02-10] MEDS: LORazepam 2 MG/ML INJ IV PRN (11:28)
[2018-02-10] MEDS: FOLIC ACID 1 MG TAB PO SCH (13:12)
[2018-02-10] MEDS: THIAMINE 100 MG TAB PO SCH ×2 (13:12→16:30)
[2018-02-10] MEDS: MULTIVITAMINS, THERA LIQUID 237 ML BOTTLE PO SCH (13:12)
--- NOTE | 2018-02-10 13:20 | P.PN ---
Subjective Progress Note Date: 02/10/18 This patient is seen today in the ICU for seizure disorder and severe hyponatremia. The patient presented with status epilepticus to the emergency room. He was found to have initially severe hyponatremia with a serum sodium of 112. He was treated initially with 3% saline initially and his serum sodium today is 120. He was weaned off of Diprivan gradually and was able to be extubated this morning. He still has been noted to have some twitching of his left hand. For this reason a repeat EEG was performed yesterday and still reveals no evidence of epileptic seizure focus despite ongoing twitching of the left arm. We are waiting his Keppra level to return from the laboratory. Check with the laboratory today reveals his Keppra level to be 12.0 and is in a therapeutic range. The patient likely has moderate degree of encephalopathy secondary to the severe hyponatremia. As noted his EEG fails to reveal any focal seizure activity to explain his left arm twitching. We have recommended the patient to undergo an MRI of the brain for close evaluation of the brainstem region. His serum sodium today is been corrected and is 133 today. We will need to continue very slow replacement of his sodium level. The patient was transferred out of the intensive care unit to the medical floor today. He is seemingly doing much better according to family members who are at his bedside. He has had no further twitching of his left arm all of today. Patient was sent for MRI of the brain which was completed yesterday. MRI revealed cerebral atrophy and some increased signal along the right side of the hippocampus possibly related to mild ischemia vs demyelination. No evidence of cortical infarction. This questionable abnormality on his MRI may be related to his severe hyponatremia. We have discussed all of these findings today in detail with the patient and his girlfriend and mother who are at bedside. He is showing improvement in his overall mental status. As noted there is been no further twitching of his left arm or left leg today. Once again we did question the patient as well as his mother who is at bedside and there is been no further twitching of his left arm or leg today. Nursing staff also confirms no evidence of left-sided twitching today. Patient is much more awake and alert today and is appropriate and answering all of his questions. Mother also notes this is the best mental status that she has seen since having him coming out of the intensive care unit. Patient has very little memory of this stay in the ICU. We will continue close neurological follow-up for the patient. Case was discussed today at length with his mother who is at bedside. She has been very pleased with his improved neurological status and cognitive functioning today as compared to his initial presentation to the hospital. We will continue close neurological follow-up with this patient in the intensive care unit. His overall prognosis at this time remains very guarded. Objective - Vital Signs Vital signs: Vital Signs Temp 98.8 F 02/10/18 07:06 Pulse 68 02/10/18 08:28 Resp 16 02/10/18 07:06 BP 123/77 02/10/18 07:06 Pulse Ox 96 02/10/18 08:12 Intake & Output 02/09/18 02/10/18 02/10/18 18:59 06:59 18:59 Weight 58.5 kg 61.5 kg Other: Voiding Method Urinal Urinal Diaper Incontinent # Voids 2 2 # Bowel Movements 1 - Exam Physical Examination: PHYSICAL EXAMINATION: Patient is resting comfortably in bed. VITAL SIGNS: Blood pressure is [123/77]. Heart rate is [58]. Respiration is [16] . Temperature is [98.8]. HEENT: Head is atraumatic, neck is supple, there were no carotid bruits. CHEST: Lungs are clear to auscultation and percussion. CARDIAC: S1, S2 normal rate and rhythm. There is no murmur. ABDOMEN: Soft and nontender. Bowel sounds are present. EXTREMITIES: There is no pedal edema. Peripheral pulses are present. Neurological examination: Patient is examined on the medical floor today and is awake alert and oriented x 3. His speech is fluent with no evidence of any aphasia or dysarthria. His memory and intellectual functions much improved. Cranial nerves II through XII are grossly intact. Motor examination: Patient has no evidence of twitching or myoclonus involving his left upper or lower extremity on examination today. Muscle strength is normal. Deep tendon reflexes: DTRs are 1+ and symmetric. Plantar responses flexor bilaterally. - Labs CBC & Chem 7: 02/09/18 07:51 02/09/18 07:51 Labs: Microbiology - Last 24 Hours (Table) 02/04/18 17:18 Blood Culture - Preliminary Blood No Growth after 120 hours 02/04/18 21:27 Gram Stain - Final Sputum Sputum Culture - Final Streptococcus pneumoniae Assessment and Plan (1) New onset seizure Current Visit: Yes Status: Acute Code(s): R56.9 - UNSPECIFIED CONVULSIONS SNOMED Code(s): 01262539 (2) Focal motor seizure Current Visit: Yes Status: Acute Code(s): G40.109 - LOCAL-REL SYMPTC EPI W SIMP PRT SEIZ,NOT NTRCT, W/O STAT EPI SNOMED Code(s): 467488831 (3) Hyponatremia Current Visit: Yes Status: Acute Code(s): E87.1 - HYPO-OSMOLALITY AND HYPONATREMIA SNOMED Code(s): 33160219 (4) Alcohol abuse Current Visit: Yes Status: Acute Code(s): F10.10 - ALCOHOL ABUSE, UNCOMPLICATED SNOMED Code(s): 37723206 Plan: This patient is a 47-year-old male who was admitted to hospital with status epilepticus and severe hyponatremia. His serum sodium in the emergency room on admission was 112. He was initially placed on 3% normal saline and his sodium was slowly corrected over the last several days. His serum sodium today is 128. Patient was extubated yesterday morning and was following simple commands. Patient was transferred to the medical floor yesterday. He is doing much better today and has no further evidence for left-sided arm or leg twitching. He underwent MRI of the brain the results which are noted above. His EEG done yesterday failed to reveal any focal seizure to explain his left arm twitching. Today on the medical floor he is much more awake and alert and is following all commands. As noted he has had no further twitching of the left arm or leg. This was confirmed by his mother who is been present this morning. She has not seen any further twitching of his left arm or leg. Nursing staff seen him this morning also not noted any twitching of his left arm or leg. We reviewed his serum sodium today which is 133. He is making very good progress and is much more awake and alert in terms of his cognitive function. We will continue close neurological follow-up with the patient. He is to continue on his current dose of Keppra. We will obtain a Keppra blood level tomorrow morning. His last level was therapeutic at 12.0. His overall prognosis at this time remains very guarded. His case was discussed at length today with his mother was at bedside. All of her questions were answered. She is been very pleased with his slow but good recovery. Patient is being evaluated by speech therapy hopefully tomorrow. He does seem to be doing much better overall in terms of his neurological status. We will continue close neurological follow-up at this patient during this admission.
[2018-02-10] MEDS: cefTRIAXone IN SWFI 1,000 MG/10 ML SYRINGE IVP SCH (16:30)
[2018-02-10 21:29] LABS: INR 1.1 (<1.2); Prothrombin Time 10.6 sec (9.0-12.0)
--- NOTE | 2018-02-10 22:07 | PN ---
PROGRESS NOTE DATE OF SERVICE: 02/10/2018 This 47-year-old gentleman admitted for seizures also had severe hyponatremia. The patient has significant history of alcohol intake also. The patient had tremors and the patient is extubated currently. The patient was seen by Neurology and multiple consultants were following the patient closely. Currently, the patient also had tremors and features of acute alcohol withdrawal and delirium tremens also. PAST MEDICAL HISTORY: Reviewed. REVIEW OF SYSTEMS: CARDIOVASCULAR: No angina. RESPIRATIONS: As mentioned earlier. GI: No nausea. : No dysuria. NERVOUS: As mentioned earlier. CURRENT MEDICATIONS: 1. DuoNeb q.i.d. and p.r.n. 2. Rocephin 1 g daily. 3. Folic acid. 4. Keppra. 5. Ativan p.r.n. 6. Narcan. 7. Lipitor. 8. Protonix. 9. Vitamin B. PHYSICAL EXAM: Patient is alert, oriented x3. Pulse is 92, blood pressure 120/77, respirations 16, temperature 98.4, pulse ox 94% on room air. HEENT: Conjunctivae normal. Oral mucosa moist. NECK: No jugular venous distention. No carotid bruit. No lymph node enlargement. CARDIOVASCULAR: S1, S2. RESPIRATIONS: Breath sounds at the bases, a few scattered rhonchi and crackles. ABDOMEN: Soft, nontender. No mass palpable. LEGS: No edema, no swelling. NERVOUS: Moves all 4 limbs. Mild diffuse tremors present. SKIN: No ulcer, rash or bleeding. LABS: WBC 7.2, hemoglobin 12.8, sodium 133. ASSESSMENT: 1. Acute hypoxic respiratory failure, possibly secondary to seizures and possible anoxic brain injury on mechanical ventilation present on admission. 2. Change in mental status, metabolic encephalopathy, possibly secondary to hypoxia, multifactorial. 3. Status epilepticus. 4. Acute delirium tremens and alcohol withdrawal. 5. Possible focal seizures involving the right hemisphere. 6. Fever, aspiration pneumonia. 7. Severe hyponatremia. 8. Severe hypokalemia. 9. History of ETOH. 10.FULL CODE. RECOMMENDATIONS AND DISCUSSION: In this 47-year-old gentleman who presented with multiple complex medical issues , we will monitor the patient closely. Continue the current management and continue symptomatic treatment. Otherwise at this time I would recommend to continue with current medications. p.r.n. Ativan. CIWA protocol score. Social Work consultation. DVT prophylaxis. The prognosis guarded because of multiple complex medical issues and further recommendations to follow. I would also check the coags also. KENDRA / IJN: [id number] / MTDD
[2018-02-11] MEDS: LORazepam 2 MG/ML INJ IV PRN ×2 (00:40→23:19)
[2018-02-11] MEDS: SODIUM CHLORIDE 0.9% 1,000 ML IV SCH (06:46)
[2018-02-11] MEDS: IPRATROPIUM-ALBUTEROL 3 ML NEB INHALATION SCH ×4 (07:14→20:18)
--- NOTE | 2018-02-11 07:14 | PN ---
PROGRESS NOTE Patient is seen for followup for hyponatremia. Serum sodium has improved to 133 from yesterday. The patient is currently comfortable, awake. He is not in any acute distress. PHYSICAL EXAMINATION: On examination, blood pressure is 120/77, heart rate 92 per minute. He is afebrile. The patient appears euvolemic. No evidence of edema in lower extremities. Abdomen is soft, nontender. LABS: Labs are not available from today. ASSESSMENT: 1. Hyponatremia, mainly hypovolemic, currently improved. Check serum sodium tomorrow. The patient has had good oral intake. He had 3% saline initially given his seizures. 2. Seizures associated electrolyte imbalance, being followed by Neurology. 3. Hypomagnesemia, status post replacement. 4. Severe hypokalemia, status post replacement. PLAN: Repeat sodium in a.m. Patient can possibly be discharged from nephrology standpoint tomorrow with plans to follow up as outpatient. MMODL / IJN: [id number] /
[2018-02-11 08:12] LABS: Basophils # (A) 0.1 k/uL (0-0.2); Basophils % (A) 1 %; Eosinophils # (A) 0.2 k/uL (0-0.7); Eosinophils % (A) 4 %; HCT 33.1 % (39.0-53.0); HGB 11.3 gm/dL (13.0-17.5); Lymphocytes # (A) 1.5 k/uL (1.0-4.8); Lymphocytes % (A) 26 %; MCH 33.8 pg (25.0-35.0); MCV 99.4 fL (80.0-100.0); Mean Platelet Volume 6.7; Monocytes # (A) 0.5 k/uL (0-1.0); Monocytes % (A) 9 %; Neutrophils # (A) 3.2 k/uL (1.3-7.7); Neutrophils % (A) 57 %; Platelet Count 434 k/uL (150-450); RBC 3.34 m/uL (4.30-5.90); RDW 13.2 % (11.5-15.5); WBC 5.5 k/uL (3.8-10.6)
[2018-02-11 08:16] LABS: ALT 38 U/L (21-72); AST 25 U/L (17-59); Albumin 2.8 g/dL (3.5-5.0); Alkaline Phosphatase 88 U/L (38-126); Anion Gap 8 mmol/L; Blood Urea Nitrogen 8 mg/dL (9-20); Calcium 8.7 mg/dL (8.4-10.2); Carbon Dioxide 23 mmol/L (22-30); Chloride 107 mmol/L (98-107); Glucose 115 mg/dL (74-99); Potassium 3.1 mmol/L (3.5-5.1); Sodium 138 mmol/L (137-145); Total Bilirubin 0.4 mg/dL (0.2-1.3); Total Protein 5.4 g/dL (6.3-8.2)
[2018-02-11] MEDS: THIAMINE 100 MG TAB PO SCH ×2 (08:17→17:29)
[2018-02-11] MEDS: FOLIC ACID 1 MG TAB PO SCH (08:17)
[2018-02-11] MEDS: NICOTINE 21MG/24HR PATCH TRANSDERM SCH (08:17)
[2018-02-11] MEDS: ENOXAPARIN 40 MG/0.4 ML SYRINGE SQ SCH (08:17)
[2018-02-11] MEDS: levETIRAcetam IV 750 MG in SODIUM CHLORIDE 0.9% 100 ML IVPB SCH ×2 (08:17→19:40)
[2018-02-11] MEDS: MULTIVITAMINS, THERA 1 EACH TAB PO SCH (08:17)
[2018-02-11] MEDS: PANTOPRAZOLE 40 MG/10 ML VIAL IV SCH (08:17)
[2018-02-11] MEDS: POTASSIUM CHLORIDE ER 20 MEQ TAB.ER PO SCH ×2 (10:17→11:13)
[2018-02-11] MEDS ORDERED: 0.9% NACL WITH KCL 40 MEQ/L 1,000 ML IV SCH (11:00)
--- NOTE | 2018-02-11 11:30 | P.PN ---
Subjective Patient is seen in follow-up for hyponatremia. Patient presented to the hospital after witnessed tonic-clonic seizure. Sodium was 112 and he was given 3% initially. He was extubated February 07. Currently maintained on normal saline at 75 mL an hour. Sodium level 138 this morning. Currently resting in bed. Tolerating oral intake well. No vomiting or diarrhea. Vital signs are stable. General: The patient appeared well nourished and normally developed. HEENT: Head exam is unremarkable. Neck is without jugular venous distension. Intubated. LUNGS: Lungs are clear to auscultation and percussion. Breath sounds decreased. HEART: Rate and Rhythm are regular. First and second heart sounds normal. No murmurs, rubs or gallops. ABDOMEN: Abdominal exam reveals normal bowel sounds. Non-tender and non- distended. No evidence of peritonitis. EXTREMITITES: No clubbing, cyanosis, or edema. Objective - Vital Signs Vital signs: Vital Signs Temp 97.3 F L 02/11/18 07:19 Pulse 55 L 02/11/18 07:25 Resp 16 02/11/18 07:19 BP 129/83 02/11/18 07:19 Pulse Ox 100 02/11/18 07:19 Intake & Output 02/10/18 02/11/18 02/11/18 18:59 06:59 18:59 Intake Total 600 Balance 600 Intake: Oral 600 Other: Voiding Method Urinal # Voids 1 2 # Bowel Movements 1 0 - Labs CBC & Chem 7: 02/11/18 07:44 02/11/18 07:44 Labs: Abnormal Lab Results - Last 24 Hours (Table) 02/11/18 02/11/18 02/11/18 Range/Units 07:44 07:44 07:44 RBC 3.34 L (4.30-5.90) m/uL Hgb 11.3 L (13.0-17.5) gm/dL Hct 33.1 L (39.0-53.0) % Potassium 3.1 L (3.5-5.1) mmol/L BUN 8 L (9-20) mg/dL Creatinine 0.39 L (0.66-1.25) mg/dL Glucose 115 H (74-99) mg/dL Magnesium 1.5 L (1.6-2.3) mg/dL Total Protein 5.4 L (6.3-8.2) g/dL Albumin 2.8 L (3.5-5.0) g/dL Microbiology - Last 24 Hours (Table) 02/04/18 17:18 Blood Culture - Final Blood No Growth after 144 hours Assessment and Plan Plan: Assessment: 1. Symptomatic hypoosmolar hyponatremia status post 3%. Sodium level of to 128 this morning. Urine sodium noted to be low sodium appears to be hypovolemic hyponatremia. 2. Seizure secondary to hyponatremia. Neurology following. 3. Severe hypokalemia. Etiology unclear. Unsure if patient was having any vomiting or diarrhea. Improved post replacement. 4. Metabolic alkalosis secondary to hypokalemia and hypochloremia leading to impaired bicarb secretion. Improved. 5. Hypophosphatemia from poor oral intake. Improved post replacement. 6. Hypomagnesemia from poor oral intake. Plan: Hep-Lock IV fluids. Replace potassium. 60 mg once today. Replace magnesium. 2 g IV today. Encouraged oral intake.
[2018-02-11] MEDS ORDERED: POTASSIUM CHLORIDE ER 20 MEQ TAB.ER PO STA (11:31)
[2018-02-11] MEDS: MAGNESIUM SULFATE-D5W PMX 1 GM in DEXTROSE/WATER 1 100ML.BAG IVPB SCH ×2 (11:48→12:53)
[2018-02-11] MEDS: cefTRIAXone IN SWFI 1,000 MG/10 ML SYRINGE IVP SCH (14:31)
--- NOTE | 2018-02-11 19:31 | P.PN ---
Subjective Progress Note Date: 02/11/18 This patient is seen today in the ICU for seizure disorder and severe hyponatremia. The patient presented with status epilepticus to the emergency room. He was found to have initially severe hyponatremia with a serum sodium of 112. He was treated initially with 3% saline initially and his serum sodium today is 120. He was weaned off of Diprivan gradually and was able to be extubated this morning. He still has been noted to have some twitching of his left hand. For this reason a repeat EEG was performed yesterday and still reveals no evidence of epileptic seizure focus despite ongoing twitching of the left arm. We are waiting his Keppra level to return from the laboratory. Check with the laboratory today reveals his Keppra level to be 12.0 and is in a therapeutic range. The patient likely has moderate degree of encephalopathy secondary to the severe hyponatremia. As noted his EEG fails to reveal any focal seizure activity to explain his left arm twitching. We have recommended the patient to undergo an MRI of the brain for close evaluation of the brainstem region. His serum sodium corrected and is 138 today. We will need to continue very slow replacement of his sodium level. He is seemingly doing much better according to family members who are at his bedside. He has had no further twitching of his left arm all of today. Patient was sent for MRI of the brain which was completed yesterday. MRI revealed cerebral atrophy and some increased signal along the right side of the hippocampus possibly related to mild ischemia vs demyelination. No evidence of cortical infarction. This questionable abnormality on his MRI may be related to his severe hyponatremia. We have discussed all of these findings today in detail with the patient and his girlfriend and mother who are at bedside. He is showing improvement in his overall mental status. As noted there is been no further twitching of his left arm or left leg today. Once again we did question the patient as well as his mother who is at bedside and there is been no further twitching of his left arm or leg today. Nursing staff also confirms no evidence of left-sided twitching. Patient is much more awake and alert today and is appropriate and answering all of his questions. Mother also notes this is the best mental status that she has seen since having him coming out of the intensive care unit. Patient has very little memory of this stay in the ICU. We will continue close neurological follow-up for the patient. Case was discussed today at length with the patient today bedside. He seems to be much more awake and alert and understands his whole condition at this time much better than last week. We will continue close neurological follow-up with this patient. He has had no further seizure-like events and his Keppra level is noted is therapeutic. His overall prognosis at this time remains guarded. Objective - Vital Signs Vital signs: Vital Signs Temp 97.3 F L 02/11/18 07:19 Pulse 55 L 02/11/18 07:25 Resp 16 02/11/18 07:19 BP 129/83 02/11/18 07:19 Pulse Ox 100 02/11/18 07:19 Intake & Output 02/10/18 02/11/18 02/11/18 18:59 06:59 18:59 Intake Total 600 Balance 600 Intake: Oral 600 Other: Voiding Method Urinal # Voids 1 2 # Bowel Movements 1 0 - Exam Physical Examination: PHYSICAL EXAMINATION: Patient is resting comfortably in bed. VITAL SIGNS: Blood pressure is [121/81]. Heart rate is [83]. Respiration is [16] . Temperature is [98.5]. HEENT: Head is atraumatic, neck is supple, there were no carotid bruits. CHEST: Lungs are clear to auscultation and percussion. CARDIAC: S1, S2 normal rate and rhythm. There is no murmur. ABDOMEN: Soft and nontender. Bowel sounds are present. EXTREMITIES: There is no pedal edema. Peripheral pulses are present. Neurological examination: Patient is examined on the medical floor today and is awake alert and oriented x 3. His speech is fluent with no evidence of any aphasia or dysarthria. His memory and intellectual functions much improved. Cranial nerves II through XII are grossly intact. Motor examination: Patient has no evidence of twitching or myoclonus involving his left upper or lower extremity on examination today. Muscle strength is normal. Deep tendon reflexes: DTRs are 1+ and symmetric. Plantar responses flexor bilaterally. - Labs CBC & Chem 7: 02/11/18 07:44 02/11/18 07:44 Labs: Abnormal Lab Results - Last 24 Hours (Table) 02/11/18 02/11/18 02/11/18 Range/Units 07:44 07:44 07:44 RBC 3.34 L (4.30-5.90) m/uL Hgb 11.3 L (13.0-17.5) gm/dL Hct 33.1 L (39.0-53.0) % Potassium 3.1 L (3.5-5.1) mmol/L BUN 8 L (9-20) mg/dL Creatinine 0.39 L (0.66-1.25) mg/dL Glucose 115 H (74-99) mg/dL Magnesium 1.5 L (1.6-2.3) mg/dL Total Protein 5.4 L (6.3-8.2) g/dL Albumin 2.8 L (3.5-5.0) g/dL Microbiology - Last 24 Hours (Table) 02/04/18 17:18 Blood Culture - Final Blood No Growth after 144 hours Assessment and Plan (1) New onset seizure Current Visit: Yes Status: Acute Code(s): R56.9 - UNSPECIFIED CONVULSIONS SNOMED Code(s): 13396503 (2) Focal motor seizure Current Visit: Yes Status: Acute Code(s): G40.109 - LOCAL-REL SYMPTC EPI W SIMP PRT SEIZ,NOT NTRCT, W/O STAT EPI SNOMED Code(s): 938829136 (3) Hyponatremia Current Visit: Yes Status: Acute Code(s): E87.1 - HYPO-OSMOLALITY AND HYPONATREMIA SNOMED Code(s): 99973736 (4) Alcohol abuse Current Visit: Yes Status: Acute Code(s): F10.10 - ALCOHOL ABUSE, UNCOMPLICATED SNOMED Code(s): 60775908 Plan: This patient is a 47-year-old male who was admitted to hospital with status epilepticus and severe hyponatremia. His serum sodium in the emergency room on admission was 112. He was initially placed on 3% normal saline and his sodium was slowly corrected over the last several days. His serum sodium today is 138. Patient was extubated yesterday morning and was following simple commands. Patient was transferred to the medical floor yesterday. He is doing much better today and has no further evidence for left-sided arm or leg twitching. He underwent MRI of the brain the results which are noted above. His EEG done yesterday failed to reveal any focal seizure to explain his left arm twitching. Today on the medical floor he is much more awake and alert and is following all commands. As noted he has had no further twitching of the left arm or leg. This was confirmed by his mother who is been present this morning. She has not seen any further twitching of his left arm or leg. Nursing staff seen him this morning also not noted any twitching of his left arm or leg. We reviewed his serum sodium today which is 138.. He is making very good progress and is much more awake and alert in terms of his cognitive function. We will continue close neurological follow-up with the patient. He is to continue on his current dose of Keppra. We will obtain a Keppra blood level tomorrow morning. His last level was therapeutic at 12.0. He does seem to be doing much better overall in terms of his neurological status. He has had no further twitching of his left arm or leg over the last 3 days. This is been verified by the patient as well as the nursing staff. He is much more awake and alert today. His serum sodium level is corrected to 138 today. He should continue on his current dose of Keppra. We will await further recommendations from multiple specialists that are seeing him. We will continue close neurological follow-up at this patient during this admission. His overall prognosis at this time remains guarded.
--- NOTE | 2018-02-11 20:41 | PN ---
PROGRESS NOTE DATE OF SERVICE: 02/11/2018. This 47-year-old gentleman who was admitted with acute hypoxic respiratory failure and EtOH also had significant delirium tremens. Patient also had gait dysfunction. PT/OT evaluation, possible ECF rehab is recommended. No chest pain. No palpitations. No fever. PHYSICAL EXAM: Alert and oriented x3. Pulse 55, blood pressure 121/82, respirations 16, temperature 98.4, pulse ox 94% room air. HEENT: Conjunctivae normal. Oral mucosa moist. Neck is no jugular venous distention. No carotid bruit. No lymph node enlargement. CARDIOVASCULAR: S1, S2. RESPIRATORY: Breath sounds diminished in the bases. No rhonchi, no crackles. ABDOMEN: Soft, nontender. LEGS: No edema. NERVOUS SYSTEM: Diffusely weak and tremors. LABS: WBC 5, hemoglobin 11.3 and potassium 3.1. ASSESSMENT: 1. Acute hypoxic respiratory failure possibly secondary to seizures and possible anoxic brain injury on mechanical ventilation, present on admission. 2. Change in mental status, metabolic encephalopathy, possibly secondary to hypoxia, multifactorial. 3. Status epilepticus. 4. Acute delirium tremens and alcohol withdrawal. 5. Severe gait dysfunction. 6. Fever, possibly aspiration pneumonia. 7. Severe hyponatremia. 8. Severe hypokalemia, present on admission. 9. History of ETOH. 10.FULL CODE. RECOMMENDATIONS AND DISCUSSION: I recommend to continue current medications and symptomatic treatment. Otherwise at this time, continue with PT, OT evaluation, possible ECF rehab. Supplement potassium. See orders for details. Prognosis guarded because of multiple complex medical issues. Discussed with the patient and discussed with staff. Further recommendations to follow. MMODL / IJN: [id number] /
[2018-02-12] MEDS: levETIRAcetam IV 750 MG in SODIUM CHLORIDE 0.9% 100 ML IVPB SCH (07:32)
[2018-02-12] MEDS: MULTIVITAMINS, THERA 1 EACH TAB PO SCH (07:33)
[2018-02-12] MEDS: THIAMINE 100 MG TAB PO SCH ×2 (07:33→15:15)
[2018-02-12] MEDS: PANTOPRAZOLE 40 MG/10 ML VIAL IV SCH (07:33)
[2018-02-12] MEDS: ENOXAPARIN 40 MG/0.4 ML SYRINGE SQ SCH (07:33)
[2018-02-12] MEDS: FOLIC ACID 1 MG TAB PO SCH (07:33)
[2018-02-12] MEDS: NICOTINE 21MG/24HR PATCH TRANSDERM SCH (07:33)
[2018-02-12] MEDS: IPRATROPIUM-ALBUTEROL 3 ML NEB INHALATION SCH ×3 (08:44→15:52)
[2018-02-12 09:53] LABS: Basophils # (A) 0.1 k/uL (0-0.2); Basophils % (A) 1 %; Eosinophils # (A) 0.2 k/uL (0-0.7); Eosinophils % (A) 4 %; HCT 30.9 % (39.0-53.0); HGB 10.3 gm/dL (13.0-17.5); Lymphocytes # (A) 1.3 k/uL (1.0-4.8); Lymphocytes % (A) 21 %; MCH 33.8 pg (25.0-35.0); MCHC 33.4 g/dL (31.0-37.0); MCV 101.1 fL (80.0-100.0); Macrocytosis Slight; Mean Platelet Volume 6.8; Monocytes # (A) 0.5 k/uL (0-1.0); Monocytes % (A) 7 %; Neutrophils # (A) 4.2 k/uL (1.3-7.7); Neutrophils % (A) 65 %; Platelet Count 449 k/uL (150-450); RBC 3.06 m/uL (4.30-5.90); RDW 13.3 % (11.5-15.5); WBC 6.4 k/uL (3.8-10.6)
[2018-02-12 09:56] LABS: ALT 37 U/L (21-72); AST 23 U/L (17-59); Alkaline Phosphatase 76 U/L (38-126); Anion Gap 7 mmol/L; Blood Urea Nitrogen 7 mg/dL (9-20); Calcium 8.6 mg/dL (8.4-10.2); Carbon Dioxide 23 mmol/L (22-30); Chloride 109 mmol/L (98-107); Glucose 92 mg/dL (74-99); Magnesium 1.6 mg/dL (1.6-2.3); Potassium 3.9 mmol/L (3.5-5.1); Sodium 139 mmol/L (137-145); Total Bilirubin 0.3 mg/dL (0.2-1.3); Total Protein 5.5 g/dL (6.3-8.2)
[2018-02-12] MEDS: MAGNESIUM SULFATE-D5W PMX 1 GM in DEXTROSE/WATER 1 100ML.BAG IVPB SCH ×2 (13:48→14:54)
[2018-02-12] MEDS: cefTRIAXone IN SWFI 1,000 MG/10 ML SYRINGE IVP SCH (13:48)
--- NOTE | 2018-02-12 14:10 | P.PN ---
Subjective Patient is seen in follow-up for hyponatremia. Patient presented to the hospital after witnessed tonic-clonic seizure. Sodium was 112 and he was given 3% initially. He was extubated February 07. He is off all IV fluids. Oral intake is good. Sodium level 139 this morning. Currently resting in bed. Tolerating oral intake well. No vomiting or diarrhea. Vital signs are stable. General: The patient appeared well nourished and normally developed. HEENT: Head exam is unremarkable. Neck is without jugular venous distension. Intubated. LUNGS: Lungs are clear to auscultation and percussion. Breath sounds decreased. HEART: Rate and Rhythm are regular. First and second heart sounds normal. No murmurs, rubs or gallops. ABDOMEN: Abdominal exam reveals normal bowel sounds. Non-tender and non- distended. No evidence of peritonitis. EXTREMITITES: No clubbing, cyanosis, or edema. Objective - Vital Signs Vital signs: Vital Signs Temp 98.6 F 02/12/18 07:00 Pulse 52 L 02/12/18 07:00 Resp 16 02/12/18 07:00 BP 125/92 02/12/18 07:00 Pulse Ox 96 02/12/18 07:00 Intake & Output 02/11/18 02/12/18 02/12/18 18:59 06:59 18:59 Intake Total 1400 Balance 1400 Weight 61.5 kg 61 kg Intake: IV 800 0.9% NaCl with KCl 40 Meq 0 /l 1,000 ml @ 75 mls/hr IV .[id number] DANIS Rx#: [id number] Magnesium Sulfate-D5w Pmx 200 1 gm In Dextrose/Water 1 100ml.bag @ 100 mls/hr IVPB Q1H DANIS Rx#: [id number] Sodium Chloride 0.9% 1, 600 000 ml @ 75 mls/hr IV . [id number] DANIS Rx#:[id number] Oral 600 Other: Voiding Method Urinal # Voids 1 3 # Bowel Movements 1 1 - Labs CBC & Chem 7: 02/12/18 08:54 02/12/18 08:54 Labs: Abnormal Lab Results - Last 24 Hours (Table) 02/12/18 02/12/18 Range/Units 08:54 08:54 RBC 3.06 L (4.30-5.90) m/uL Hgb 10.3 L (13.0-17.5) gm/dL Hct 30.9 L (39.0-53.0) % MCV 101.1 H (80.0-100.0) fL Chloride 109 H (98-107) mmol/L BUN 7 L (9-20) mg/dL Creatinine 0.42 L (0.66-1.25) mg/dL Total Protein 5.5 L (6.3-8.2) g/dL Albumin 3.0 L (3.5-5.0) g/dL Assessment and Plan Plan: Assessment: 1. Symptomatic hypoosmolar hyponatremia status post 3%. Sodium level 139 this morning. Urine sodium noted to be low sodium appears to be hypovolemic hyponatremia. 2. Seizure secondary to hyponatremia. Neurology following. 3. Severe hypokalemia. Etiology unclear. Unsure if patient was having any vomiting or diarrhea. Improved post replacement. 4. Metabolic alkalosis secondary to hypokalemia and hypochloremia leading to impaired bicarb secretion. Improved. 5. Hypophosphatemia from poor oral intake. Improved post replacement. 6. Hypomagnesemia from poor oral intake. Plan: Remains off all IV fluids. Replace magnesium. 2 g IV today. Add oral magnesium supplementation. Encouraged oral intake.
[2018-02-12] MEDS ORDERED: MAGNESIUM OXIDE 400 MG TAB PO SCH (14:15)
[2018-02-12] MEDS: LORazepam 2 MG/ML INJ IV PRN (15:15)
--- NOTE | 2018-02-12 15:18 | P.DS ---
Providers Date of admission: 02/04/18 19:29 Expected date of discharge: 02/12/18 Attending physician: Jonatan Dumont Consults: 02/04/18 19:20 Consult Physician Stat Consulting Provider: Rambo Erwin Consult Reason/Comments: hyponatremia Do you want consulting provider notified?: Already Contacted Consult Physician Stat Consulting Provider: Carmen Spence Consult Reason/Comments: intubated, seizure Do you want consulting provider notified?: Already Contacted Consult Physician Stat Consulting Provider: Aleja Ellis Consult Reason/Comments: seizure Do you want consulting provider notified?: Already Contacted Primary care physician: Stated None Hospital Course: Final Diagnoses: 1. Acute hypoxic respiratory failure, possibly secondary seizures, possible anoxic brain injury status post mechanical ventilation, present on admission 2. Change in mental status, acute metabolic encephalopathy possibly secondary to hypoxia, multifactorial 3. Status epilepticus 4. Acute delirium tremens and alcohol withdrawal 5. Severe gait dysfunction 6. Fever, possible aspiration pneumonia 7. Severe hyponatremia, resolved 8. Severe hypokalemia, potassium on admission 9. History of EtOH abuse Hospital course: This a 47-year-old gentleman admitted with acute hypoxic respiratory failure, EtOH abuse with significant DTs, tonic-clonic seizures, severe hyponatremia and multiple other medical issues. Evaluated by neurology, nephrology, pulmonary. Initially maintained on 3% sodium, with current sodium 139. Electrolytes supplemented. PT/OT. Continued on CIWA protocol. Neuro workup completed;EEG failed to reveal any focal seizures. Maintained on Keppra Significant clinical improvement. Patient has been cleared for discharge by consults. Patient is being discharged to [facility] subacute rehab in a stable condition with guarded prognosis. EXAM:GEN: Sitting up in bed, no acute distress.CV: Regular S1 and S2. LUNGS: Bilateral bases diminished. ABD: Soft, nontender, positive bowel sounds. Nervous : No focal deficits The impression and plan of care has been dictated as directed. : I performed a history and examination of this patient, discussed the same with the dictator. I agree with the dictator's note ,documented as a scribe. Any additional findings or plans will be noted. Time taken: 35 minutes Patient Condition at Discharge: Stable Plan - Discharge Summary New Discharge Prescriptions: New Folic Acid 1 mg PO DAILY@1200 #0 tab Ipratropium-Albuterol Nebulize [Duoneb 0.5 mg-3 mg/3 ml Soln] 3 ml INHALATION RT-QID ampul.neb LORazepam [Ativan] 1 mg PO TID PRN #9 tab PRN Reason: Anxiety Magnesium Oxide [Mag-Ox] 400 mg PO DAILY tab Nicotine 21Mg/24Hr Patch [Habitrol] 1 patch TRANSDERM DAILY patch Thiamine [Vitamin B-1] 100 mg PO BID@1200,1700 tab Pantoprazole Sodium [Protonix] 40 mg PO DAILY #1 tablet. Cefuroxime Axetil [Ceftin] 500 mg PO BID #10 tab levETIRAcetam [Keppra] 750 mg PO Q12HR #1 tab Continue Multivitamins, Thera [Multivitamin (formulary)] 1 tab PO DAILY Discontinued Potassium 99 mg PO DAILY Magnesium(Unknown Dose) 1 tab PO DAILY Grape Seed Extract 1 tab PO DAILY Discharge Medication List Multivitamins, Thera [Multivitamin (formulary)] 1 tab PO DAILY 02/04/18 [History ] Cefuroxime Axetil [Ceftin] 500 mg PO BID #10 tab 02/12/18 [Rx] Folic Acid 1 mg PO DAILY@1200 #0 tab 02/12/18 [Rx] Ipratropium-Albuterol Nebulize [Duoneb 0.5 mg-3 mg/3 ml Soln] 3 ml INHALATION RT -QID ampul.neb 02/12/18 [Rx] LORazepam [Ativan] 1 mg PO TID PRN #9 tab 02/12/18 [Rx] Magnesium Oxide [Mag-Ox] 400 mg PO DAILY tab 02/12/18 [Rx] Nicotine 21Mg/24Hr Patch [Habitrol] 1 patch TRANSDERM DAILY patch 02/12/18 [Rx] Pantoprazole Sodium [Protonix] 40 mg PO DAILY #1 tablet. 02/12/18 [Rx] Thiamine [Vitamin B-1] 100 mg PO BID@1200,1700 tab 02/12/18 [Rx] levETIRAcetam [Keppra] 750 mg PO Q12HR #1 tab 02/12/18 [Rx] Follow up Appointment(s)/Referral(s): Pedro Suh MD [REFERRING] - 3 Days ([facility] Carmen Spence MD [STAFF PHYSICIAN] - 2 Weeks Jocelyn Ellis MD [STAFF PHYSICIAN] - 2 Weeks Dillon Nicole MD [STAFF PHYSICIAN] - 1 Week (after dc from ECF) [facility]Diet[facility] Care[facility] Diet: Cardiac Activity: As tolerated CBC, BMP in 3 days Discharge Disposition: TRANSFER TO SNF/ECF
--- NOTE | 2018-02-12 15:44 | PN ---
PROGRESS NOTE DATE OF SERVICE: 02/12/2018. This 47-year-old gentleman who was admitted with acute hypoxic respiratory failure also had significant alcohol withdrawal symptoms, also patient had acute delirium tremens. The patient had gait dysfunction also. MRI of the brain was also done which showed some cerebral atrophy. No chest pain. No palpitations. Hippocampal increased density was noted. EXAM: Alert and oriented x3. Pulse is 60, blood pressure 130/72, respiration 16, temperature 98.2, pulse ox 98% room air. HEENT: Conjunctivae normal. NECK: No jugular venous distention. CARDIOVASCULAR: S1, S2. RESPIRATORY: Breath sounds diminished in the bases. No rhonchi. No crackles. ABDOMEN: Soft, nontender. LEGS: No edema. NERVOUS SYSTEM: Diffusely weak, tremors also present. LABS: WBC 6 9, hemoglobin 10.8, potassium 3.9. ASSESSMENT: 1. Acute hypoxic respiratory failure possibly secondary to seizures and possible anoxic brain injury, status post mechanical ventilation. 2. Change in mental status, metabolic encephalopathy, possibly secondary to hypoxia, multifactorial. 3. Status epilepticus. 4. Acute delirium tremens and alcohol withdrawal. 5. Severe gait dysfunction. 6. Fever, aspiration pneumonia. 7. Severe hyponatremia and severe hypokalemia, present on admission. 8. History of ETOH. 9. FULL CODE. RECOMMENDATION AND DISCUSSION: I recommend to continue current management and symptomatic treatment. PT, OT evaluation, possible ECF rehab. Guarded prognosis because of multiple complex medical issues. Further recommendations to follow. MMLANE / MICHAELN: [id number] /
[2018-02-12 15:57] VITALS: BP 132/76; RESP 18; TEMP 98.2
[2018-02-12 16:02] VITALS: PULSE 62
[2018-02-13] MEDS ORDERED: PANTOPRAZOLE 40 MG TABLET PO SCH (07:30)
== END 2018-02-12 14:15 | DRG 100 ==
LOC: EC 16:33 → 6ICU 19:29 → 4MS4W 02-08 10:51
PROVIDERS: ADMIT Hospitalist; ATTEND Hospitalist
PROC: 5A1945Z Respiratory Ventilation, 24-96 Consecutive Hours (ICD-10-PCS; principal; 2018-02-04)
PROC: 0BH17EZ Insertion of Endotracheal Airway into Trachea, Via Natural or Artificial Opening (ICD-10-PCS; 2018-02-04)
DX: G40.401 Other generalized epilepsy and epileptic syndromes, not intractable, with status epilepticus (principal); G93.41 Metabolic encephalopathy; J69.0 Pneumonitis due to inhalation of food and vomit; J96.01 Acute respiratory failure with hypoxia; E87.1 Hypo-osmolality and hyponatremia; E87.3 Alkalosis; F10.231 Alcohol dependence with withdrawal delirium; J98.11 Atelectasis; G93.1 Anoxic brain damage, not elsewhere classified; E83.39 Other disorders of phosphorus metabolism; E83.42 Hypomagnesemia; E86.1 Hypovolemia; E87.6 Hypokalemia; E87.8 Other disorders of electrolyte and fluid balance, not elsewhere classified; G31.9 Degenerative disease of nervous system, unspecified; I10 Essential (primary) hypertension; M47.812 Spondylosis without myelopathy or radiculopathy, cervical region; R11.2 Nausea with vomiting, unspecified; R19.7 Diarrhea, unspecified; R26.9 Unspecified abnormalities of gait and mobility; R32 Unspecified urinary incontinence
CPT/HCPCS: 31500; 36415; 36600; 43753; 51702; 70450; 70551; 71045; 72125; 80048; 80053; 80177; 80306; 80320; 81001; 82550; 82553; 82805; 83036; 83520; 83605; 83735; 83930; 83935; 84100; 84132; 84295; 84300; 85025; 85610; 87040; 87070; 87077; 87086; 87186; 87205; 87324; 93005; 94002; 94003; 94640; 94760; 95816; 95819; 96361; 96365; 96368; 96375; 99285

== ENCOUNTER → 2018-05-09 | Outpatient (CLI) | payer OTHER ==
--- NOTE | 2018-05-09 11:30 | USB ---
Reason for exam: clinical finding. History: Benign excisional biopsy of both breasts, 1989. Indicated problem(s): palpable abnormality and lump or thickening in the left breast. Physical Findings: Nurse Summary: 4cm nodule moves (nurse dw). US Breast LT Left complete breast ultrasound includes all four quadrants, the retroareolar region and axilla. Finding demonstrates a 4.2 x 1.0 x 2.1cm solid lesion at the nipple. This is isoechoic and somewhat flame shaped. Gynecomastia is suspected. These results were verbally communicated with the patient and result sheet given to the patient on 05/09/18. ASSESSMENT: Incomplete: need additional imaging evaluation, BI-RAD 0 RECOMMENDATION: Special view mammogram of both breasts.
--- NOTE | 2018-05-09 11:33 | MM ---
Reason for exam: additional evaluation requested from prior study. Baseline mammogram. History: Benign excisional biopsy of both breasts, 1989. [facility] Diagnostic Mammo w CAD RAMO Bilateral CC and MLO view(s) were taken. The breast tissue is heterogeneously dense. This may lower the sensitivity of mammography. Post excision changes on the right. Severe gynecomastia on the left. No distinct mass. A couple round calcifications superiorly do not form a cluster. These results were verbally communicated with the patient and result sheet given to the patient on 05/09/18. ASSESSMENT: Benign, BI-RAD 2 RECOMMENDATION: Clinical management of both breasts. Manage patient on a clinical basis. Correlate as to potential causes of gynecomastia. Surgical consultation can be considered if symptomatic.
== END | disposition home or self-care (01) ==
LOC: RADUSWWP 09:10
PROVIDERS: ATTEND Internal Medicine
DX: N60.02 Solitary cyst of left breast (principal); R92.8 Other abnormal and inconclusive findings on diagnostic imaging of breast
CPT/HCPCS: 77066

== ENCOUNTER 2019-04-15 10:20 | Emergency (ER) | payer OTHER ==
[2019-04-15 11:29] VITALS: TEMP 97.9
[2019-04-15] MEDS ORDERED: SODIUM CHLORIDE 0.9% 1,000 ML IV STA (11:37)
[2019-04-15] MEDS ORDERED: LORazepam 2 MG/ML INJ IV STA (11:37)
[2019-04-15] MEDS ORDERED: levETIRAcetam IV 1,000 MG in SALINE 1 100ML.BAG IVPB STA (11:37)
--- NOTE | 2019-04-15 12:11 | ED ---
Seizure HPI - General Chief Complaint: Seizure Stated Complaint: seizure Time Seen by Provider: 04/15/19 11:25 Source: patient, EMS, RN notes reviewed, old records reviewed Mode of arrival: EMS Limitations: no limitations - History of Present Illness Initial Comments: This is a 40-year-old male the ER for evaluation. States patient is reevaluation regards to seizure activity. Patient has history of alcohol withdrawal seizures. Patient had seizure today witnessed, patient will also take Keppra. Been off his Keppra medication. Patient states he feels tremoring feel shaky is complaining of some body stiffness and muscle stiffness. No recent nausea vomiting or diarrhea no recent fever no significant head trauma noted MD Complaint: seizure, shaking -: hour(s) Description of Episode: loss of consciousness, tonic-clonic movement -: second(s) Witnessed: yes - by bystander Trauma: No Seizure History: known seizure disorder, history of withdrawal seizures, history of non-compliance with treatment Place: home Possible Precipitating Event: none Associated Symptoms: denies other symptoms Treatments Prior to Arrival: none - Related Data Previous Rx's Medication Instructions Recorded levETIRAcetam [Keppra] 750 mg PO Q12HR #1 tab 02/12/18 Allergies Allergy/AdvReac Type Severity Reaction Status Date / Time No Known Allergies Allergy Verified 04/15/19 12:14 Review of Systems ROS Statement: Those systems with pertinent positive or pertinent negative responses have been documented in the HPI. ROS Other: All systems not noted in ROS Statement are negative. Past Medical History Past Medical History: No Reported History Additional Past Medical History / Comment(s): alcoholism, seizure History of Any Multi-Drug Resistant Organisms: None Reported Past Surgical History: No Surgical Hx Reported Additional Past Surgical History / Comment(s): knee surgery Past Anesthesia/Blood Transfusion Reactions: No Reported Reaction Past Psychological History: No Psychological Hx Reported Smoking Status: Current every day smoker Past Alcohol Use History: Daily, Heavy Past Drug Use History: Marijuana - Past Family History Father Family Medical History: Cancer Additional Family Medical History / Comment(s): lung cancer and agent orange exposure. Mother Family Medical History: No Reported History General Exam Limitations: no limitations General appearance: alert, in no apparent distress, anxious Head exam: Present: atraumatic, normocephalic, normal inspection Eye exam: Present: normal appearance, EOMI. Absent: scleral icterus, conjunctival injection, periorbital swelling ENT exam: Present: normal exam, mucous membranes moist Neck exam: Present: normal inspection. Absent: tenderness, meningismus, lymphadenopathy Respiratory exam: Present: normal lung sounds bilaterally. Absent: respiratory distress, wheezes, rales, rhonchi, stridor Cardiovascular Exam: Present: regular rate, normal rhythm, normal heart sounds. Absent: systolic murmur, diastolic murmur, rubs, gallop, clicks GI/Abdominal exam: Present: soft, normal bowel sounds. Absent: distended, tenderness, guarding, rebound, rigid Extremities exam: Present: normal inspection, full ROM, normal capillary refill. Absent: tenderness, pedal edema, joint swelling, calf tenderness Back exam: Present: normal inspection Neurological exam: Present: alert, oriented X3, CN II-XII intact Psychiatric exam: Present: normal affect, normal mood Skin exam: Present: warm, dry, intact, normal color. Absent: rash Course Vital Signs 04/15/19 04/15/19 11:24 13:48 Temperature 97.9 F Pulse Rate 64 74 Respiratory 18 16 Rate Blood Pressure 133/75 118/68 O2 Sat by Pulse 98 96 Oximetry - Reevaluation(s) Reevaluation #1: 04/15/19 14:03 Record is reviewed Reevaluation #2: 04/15/19 14:03 Recurrent seizure here in the ER Reevaluation #3: 04/15/19 14:04 Patient symptoms are improved has no current complaints Medical Decision Making - Medical Decision Making 4 male the ER with recurrent seizure. Then one year since last seizure, patient is been off his Keppra, patient placed back on Keppra history of alcohol is an occult currently negative but not currently going through DTs no active shaking no altered mental status blood pressure vital signs are normal. Patient can be discharged home - Lab Data Result diagrams: 04/15/19 11:51 04/15/19 11:51 Lab Results 04/15/19 04/15/19 Range/Units 11:51 11:51 WBC 15.5 H (3.8-10.6) k/uL RBC 4.23 L (4.30-5.90) m/uL Hgb 14.8 (13.0-17.5) gm/dL Hct 43.1 (39.0-53.0) % MCV 102.0 H (80.0-100.0) fL MCH 34.9 (25.0-35.0) pg MCHC 34.3 (31.0-37.0) g/dL RDW 14.0 (11.5-15.5) % Plt Count 224 (150-450) k/uL Neutrophils % 87 % Lymphocytes % 6 % Monocytes % 5 % Eosinophils % 1 % Basophils % 0 % Neutrophils # 13.5 H (1.3-7.7) k/uL Lymphocytes # 1.0 (1.0-4.8) k/uL Monocytes # 0.8 (0-1.0) k/uL Eosinophils # 0.1 (0-0.7) k/uL Basophils # 0.1 (0-0.2) k/uL Macrocytosis Slight Sodium 138 (137-145) mmol/L Potassium 4.9 (3.5-5.1) mmol/L Chloride 103 (98-107) mmol/L Carbon Dioxide 23 (22-30) mmol/L Anion Gap 12 mmol/L BUN 17 (9-20) mg/dL Creatinine 0.66 (0.66-1.25) mg/dL Est GFR (CKD-EPI)AfAm >90 (>60 ml/min/1.73 sqM) Est GFR (CKD-EPI)NonAf >90 (>60 ml/min/1.73 sqM) Glucose 95 (74-99) mg/dL Calcium 9.6 (8.4-10.2) mg/dL Phosphorus 3.4 (2.5-4.5) mg/dL Magnesium 1.9 (1.6-2.3) mg/dL Total Bilirubin 0.7 (0.2-1.3) mg/dL AST 75 H (17-59) U/L ALT 23 (21-72) U/L Alkaline Phosphatase 115 (38-126) U/L Total Protein 7.5 (6.3-8.2) g/dL Albumin 4.5 (3.5-5.0) g/dL Salicylates <1.0 mg/dL Acetaminophen <10.0 ug/mL Serum Alcohol <10 mg/dL - EKG Data -: EKG Interpreted by Me (EKG shows sinus bradycardia rate of 57, WA 154, QRS 80, QTC 379) Disposition Clinical Impression: Alcohol abuse, Generalized seizure Disposition: HOME SELF-CARE Condition: Fair Instructions (If sedation given, give patient instructions): Recurrent Seizures in Adults (ED) Is patient prescribed a controlled substance at d/c from ED?: No Referrals: Lynnette Stewart MD [Primary Care Provider] - 1-2 days
[2019-04-15 12:16] LABS: ALT 23 U/L (21-72); AST 75 U/L (17-59); Acetaminophen <10.0 ug/mL; African American GFR (CKD) >90 (>60 ml/min/1.73 sqM); Albumin 4.5 g/dL (3.5-5.0); Alcohol <10 mg/dL; Alkaline Phosphatase 115 U/L (38-126); Anion Gap 12 mmol/L; Blood Urea Nitrogen 17 mg/dL (9-20); Calcium 9.6 mg/dL (8.4-10.2); Carbon Dioxide 23 mmol/L (22-30); Chloride 103 mmol/L (98-107); Glucose 95 mg/dL (74-99); Magnesium 1.9 mg/dL (1.6-2.3); Phosphorus 3.4 mg/dL (2.5-4.5); Potassium 4.9 mmol/L (3.5-5.1); Salicylate <1.0 mg/dL; Sodium 138 mmol/L (137-145); Total Bilirubin 0.7 mg/dL (0.2-1.3); Total Protein 7.5 g/dL (6.3-8.2)
[2019-04-15 12:38] LABS: Basophils # (A) 0.1 k/uL (0-0.2); Basophils % (A) 0 %; Eosinophils # (A) 0.1 k/uL (0-0.7); Eosinophils % (A) 1 %; HCT 43.1 % (39.0-53.0); HGB 14.8 gm/dL (13.0-17.5); Lymphocytes % (A) 6 %; MCH 34.9 pg (25.0-35.0); MCHC 34.3 g/dL (31.0-37.0); Macrocytosis Slight; Mean Platelet Volume 7.4; Monocytes # (A) 0.8 k/uL (0-1.0); Monocytes % (A) 5 %; Neutrophils # (A) 13.5 k/uL (1.3-7.7); Neutrophils % (A) 87 %; Platelet Count 224 k/uL (150-450); RBC 4.23 m/uL (4.30-5.90); WBC 15.5 k/uL (3.8-10.6)
[2019-04-15 13:49] VITALS: BP 118/68; PULSE 74; RESP 16
[2019-04-15] MEDS ORDERED: DIAZEPAM 5 MG/ML 2 ML INJ IVP STA (14:15)
== END 2019-04-15 15:00 | disposition home or self-care (01) ==
LOC: EC 10:20
DX: G40.409 Other generalized epilepsy and epileptic syndromes, not intractable, without status epilepticus (principal); F10.10 Alcohol abuse, uncomplicated; F17.200 Nicotine dependence, unspecified, uncomplicated; Y90.0 Blood alcohol level of less than 20 mg/100 ml
CPT/HCPCS: 36415; 93005; 80053; 83735; 84100; 85025; 83520; 99284; 96374; 96375 ×2; 96361; G0480 ×2; J2060; J3360; J1953; 80320; 80329

== ENCOUNTER → 2019-04-18 | Outpatient (CLI) | payer OTHER ==
--- NOTE | 2019-04-18 13:54 | XR ---
EXAMINATION TYPE: XR shoulder complete RT DATE OF EXAM: 04/18/2019 COMPARISON: NONE HISTORY: Pain TECHNIQUE: Three views are submitted. FINDINGS: The osseous structures are intact. There is no acute fracture or dislocation. Hypertrophic change of the AC joint. There is a nodular density in the right lower lobe. Diffuse osteopenia. IMPRESSION: 1. Severe AC joint arthropathy correlate for rotator cuff disease. 2. Nodular appearing density right lower lobe recommend CT chest.
== END | disposition home or self-care (01) ==
LOC: RADXRYALE 13:40
PROVIDERS: ATTEND Internal Medicine
DX: M25.511 Pain in right shoulder (principal)

== ENCOUNTER → 2019-06-20 | Outpatient (CLI) | payer OTHER ==
--- NOTE | 2019-06-20 11:05 | MR ---
EXAMINATION TYPE: MR shoulder RT wo con DATE OF EXAM: 06/20/2019 COMPARISON: Carlos film 04/18/2019 HISTORY: Right shoulder pain TECHNIQUE: Multiplanar, multisequence imaging of the right shoulder is performed without contrast. FINDINGS: Rotator Cuff: There is attenuation of the rotator cuff, fluid signal is present in subacromial subdel toid bursa, increased signal present within the rotator cuff tendon especially the supraspinatus tend on which appears at least partially torn, discontinuous at the level of the insertion on the humeral head at its anterior margin. Acromioclavicular Joint: Hypertrophic changes are present causing mass effect on the musculotendinous junction of supraspinatus and there is a distal acromial spur present Glenohumeral Joint: Intact Labrum: Some intrinsic signal within the rotator cuff may be due to degenerative change, possible fra katja of the superior and anterior margin of the labrum Biceps Tendon: Fluid signal is present along the long head of biceps tendon which shows a normal posi tion in the bicipital groove Bone marrow signal: There is some pseudocysts within the humeral head, possible bone contusion, react chinedu marrow signal change present towards the greater tuberosity and metaphysis is noted with intermed iate signal within the marrow T1, increased on T2-weighted sequences Other: Some fluid present along the subscapularis tendon at the muscular tendinous junction level is noted IMPRESSION: There is at least a partial full-thickness tear of the supraspinatus tendon. Correlate for impingemen t. Findings of the superior labrum as described. Possible posttraumatic change of the proximal humeru s. Additional findings above.
== END | disposition home or self-care (01) ==
LOC: RADMRIMAIN 09:28 → MERGE 09:45
PROVIDERS: ATTEND Orthopaedic Surgery Sports Medicine
DX: S46.011A Strain of muscle(s) and tendon(s) of the rotator cuff of right shoulder, initial encounter (principal)

== ENCOUNTER 2019-11-27 06:40 | Inpatient (IN) | payer MEDICAID, OTHER ==
--- NOTE | 2019-11-27 07:13 | ED ---
Psych HPI - General Chief Complaint: Psychiatric Symptoms Stated Complaint: mental health Time Seen by Provider: 11/27/19 06:53 Source: patient, police, RN notes reviewed, old records reviewed Mode of arrival: ambulatory - History of Present Illness Initial Comments: Patient is a 49-year-old male presents emergency department today via operator lights escort. Presents today for concern for visual and auditory hallucinations. Patient does have a history of alcoholism. Reportedly over the past 24 hours Patient has called police multiple times for seeing people around his property in camouflage as well as hearing voices coming from his cell phone. Girlfriend reports that he does not have a history of hallucinations. Patient was brought to ED willingly for EPS evaluation.Patient reports that he had similar episodes happen last week. He reports that he does drink daily but is sober at this time. He had a few beers last night. 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 He states that he did not sleep in the past 24 hours. - Related Data Previous Rx's Medication Instructions Recorded levETIRAcetam [Keppra] 750 mg PO Q12HR #1 tab 02/12/18 levETIRAcetam [Keppra] 750 mg PO Q12HR #60 tab 04/15/19 Allergies Allergy/AdvReac Type Severity Reaction Status Date / Time No Known Allergies Allergy Verified 11/27/19 06:50 Review of Systems ROS Statement: Those systems with pertinent positive or pertinent negative responses have been documented in the HPI. ROS Other: All systems not noted in ROS Statement are negative. Past Medical History Past Medical History: No Reported History Additional Past Medical History / Comment(s): alcoholism, seizure History of Any Multi-Drug Resistant Organisms: None Reported Past Surgical History: Breast Surgery, Orthopedic Surgery Additional Past Surgical History / Comment(s): knee surgery Past Anesthesia/Blood Transfusion Reactions: No Reported Reaction Past Psychological History: No Psychological Hx Reported Smoking Status: Current every day smoker Past Alcohol Use History: Daily, Heavy Past Drug Use History: Marijuana - Past Family History Father Family Medical History: Cancer Additional Family Medical History / Comment(s): lung cancer and agent orange exposure. Mother Family Medical History: No Reported History General Exam - General Exam Comments Initial Comments: Patient is alert and oriented somewhat anxious 49-year-old male. Patient appears hypervigilant. Limitations: no limitations General appearance: alert, in no apparent distress Head exam: Present: atraumatic, normocephalic, normal inspection Eye exam: Present: normal appearance, PERRL, EOMI. Absent: scleral icterus, conjunctival injection, periorbital swelling ENT exam: Present: normal exam, mucous membranes moist Neck exam: Present: normal inspection. Absent: tenderness, meningismus, lymphadenopathy Respiratory exam: Present: normal lung sounds bilaterally Cardiovascular Exam: Present: regular rate, normal rhythm, normal heart sounds. Absent: systolic murmur, diastolic murmur, rubs, gallop, clicks GI/Abdominal exam: Present: soft, normal bowel sounds. Absent: distended, tenderness, guarding, rebound, rigid Extremities exam: Present: normal inspection, full ROM, normal capillary refill. Absent: tenderness, pedal edema, joint swelling, calf tenderness Back exam: Present: normal inspection Neurological exam: Present: alert, oriented X3, CN II-XII intact Psychiatric exam: Present: normal affect, normal mood, other (Patient reports visual hallucinations, seeing people around his property and voices from his cell phone that nobody else hears or sees) Skin exam: Present: warm, dry, intact, normal color. Absent: rash Course Vital Signs 11/27/19 06:43 Temperature 97.6 F Pulse Rate 105 H Respiratory 20 Rate Blood Pressure 127/89 O2 Sat by Pulse 99 Oximetry Medical Decision Making - Medical Decision Making Patient is a 49-year-old male presents for auditory and visual hallucinations. He is hypervigilant. and believes that people are coming after him. He states he sees people surrounding his property and call the police multiple times last night. Patient is medically clear at this time for EPS evaluation. Denies any other physical complaints. Patient was evaluated by EPS and determined the Patient should be admitted. Patient's signs and willingly to psychiatric unit. Patient has been cooperative and emergency department. - Lab Data Lab Results 11/27/19 Range/Units 07:00 Urine Opiates Screen Not Detected (NotDetected) Ur Oxycodone Screen Not Detected (NotDetected) Urine Methadone Screen Not Detected (NotDetected) Ur Propoxyphene Screen Not Detected (NotDetected) Ur Barbiturates Screen Not Detected (NotDetected) U Tricyclic Antidepress Not Detected (NotDetected) Ur Phencyclidine Scrn Not Detected (NotDetected) Ur Amphetamines Screen Detected H (NotDetected) U Methamphetamines Scrn Detected H (NotDetected) U Benzodiazepines Scrn Not Detected (NotDetected) Urine Cocaine Screen Not Detected (NotDetected) U Marijuana (THC) Screen Detected H (NotDetected) Disposition Clinical Impression: Visual hallucinations, Auditory hallucination, Paranoia (psychosis), History of alcohol abuse, Methamphetamine use Disposition: ADMITTED IP TO THIS [facility] Condition: Stable Is patient prescribed a controlled substance at d/c from ED?: No Referrals: Lynnette Stewart MD [Primary Care Provider] - 1-2 days Time of Disposition: 09:42
[2019-11-27] MEDS ORDERED: ONDANSETRON 4 MG ODT STARTER PACK 2 TAB BTL PO STA (07:15)
[2019-11-27] MEDS ORDERED: ONDANSETRON ODT 4 MG TAB PO STA (07:22)
[2019-11-27 07:31] LABS: Amphetamine Screen,Urine Detected (NotDetected); Barbiturate Screen,Urine Not Detected (NotDetected); Benzodiazepines Screen,Urine Not Detected (NotDetected); Cocaine Screen,Urine Not Detected (NotDetected); Methadone Screen, Urine Not Detected (NotDetected); Opiate Screen,Urine Not Detected (NotDetected); Oxycodone Screen, Urine Not Detected (NotDetected); Phencyclidine Screen,Urine Not Detected (NotDetected); Tricyclic Antidepressant,Urine Not Detected (NotDetected); Urn Cannabinoid Scrn Detected (NotDetected)
[2019-11-27] MEDS ORDERED: MAG HYDROX/AL HYDROX/SIMETH 30 ML CUP PO PRN (09:36)
[2019-11-27] MEDS ORDERED: ZIPRASIDONE 20 MG VIAL IM PRN (09:36)
[2019-11-27] MEDS ORDERED: MAGNESIUM HYDROXIDE 2,400 MG/10 ML CUP PO PRN (09:36)
[2019-11-27] MEDS ORDERED: LORazepam 1 MG TAB PO PRN (09:36)
[2019-11-27] MEDS ORDERED: ACETAMINOPHEN TAB 325 MG TAB PO PRN (09:36)
[2019-11-27] MEDS ORDERED: NICOTINE 14MG/24HR PATCH TRANSDERM SCH (09:45)
[2019-11-27] MEDS: levETIRAcetam 250 MG TAB PO SCH ×2 (11:08→20:44)
[2019-11-27] MEDS: NICOTINE 21MG/24HR PATCH TRANSDERM SCH (11:09)
--- NOTE | 2019-11-27 13:37 | P.CONS ---
History of Present Illness - Reason for Consult Medical clearance - History of Present Illness Patient is a 49-year-old male came in with compensative artery hallucinations and acute psychosis admitted to psychiatric floor. Patient denied any fever chills nausea vomiting abdominal pain patient does have some rotator cuff issues but no significant pain in the right the shoulder where he had rotator cuff injury in the past. Patient does smoke used to drink heavily did drink a few drinks last night.. Patient denied any fever chills nausea vomiting abdominal pain dysuria. Review of Systems REVIEW OF SYSTEMS: CONSTITUTIONAL: No fever, no malaise, no fatigue. HEENT: No recent visual problems or hearing problems. Denied any sore throat. CARDIOVASCULAR: No chest pain, orthopnea, PND, no palpitations, no syncope. PULMONARY: No shortness of breath, no cough, no hemoptysis. GASTROINTESTINAL: No diarrhea, no nausea, no vomiting, no abdominal pain. NEUROLOGICAL: No headaches, no weakness, no numbness. HEMATOLOGICAL: Denies any bleeding or petechiae. GENITOURINARY: Denies any burning micturition, frequency, or urgency. MUSCULOSKELETAL/RHEUMATOLOGICAL: Denies any joint pain, swelling, or any muscle pain. ENDOCRINE: Denies any polyuria or polydipsia. The rest of the 14-point review of systems is negative. Past Medical History Past Medical History: No Reported History Additional Past Medical History / Comment(s): alcoholism, seizure History of Any Multi-Drug Resistant Organisms: None Reported Past Surgical History: Breast Surgery, Orthopedic Surgery Additional Past Surgical History / Comment(s): knee surgery Past Anesthesia/Blood Transfusion Reactions: No Reported Reaction Smoking Status: Current every day smoker - Past Family History Father Family Medical History: Cancer Additional Family Medical History / Comment(s): lung cancer and agent orange exposure. Mother Family Medical History: No Reported History Medications and Allergies Home Medications Medication Instructions Recorded Confirmed Type levETIRAcetam [Keppra] 750 mg PO Q12HR #1 tab 02/12/18 04/15/19 Rx levETIRAcetam [Keppra] 750 mg PO Q12HR #60 tab 04/15/19 11/27/19 Rx Allergies Allergy/AdvReac Type Severity Reaction Status Date / Time No Known Allergies Allergy Verified 11/27/19 06:50 Physical Exam Vitals: Vital Signs Temp Pulse Pulse Resp BP BP Pulse Ox 11/27/19 10:16 97.2 F L 86 18 120/80 11/27/19 10:00 97.2 F L 86 18 120/80 97 11/27/19 06:43 97.6 F 105 H 20 127/89 99 Intake and Output 11/26/19 11/27/19 11/27/19 22:59 06:59 14:59 Other: Weight 65.091 kg 59.6 kg PHYSICAL EXAMINATION: GENERAL: The patient is alert and oriented x3, not in any acute distress. Well developed, well nourished. HEENT: Pupils are round and equally reacting to light. EOMI. No scleral icterus. No conjunctival pallor. Normocephalic, atraumatic. No pharyngeal erythema. No thyromegaly. CARDIOVASCULAR: S1 and S2 present. No murmurs, rubs, or gallops. PULMONARY: Chest is clear to auscultation, no wheezing or crackles. ABDOMEN: Soft, nontender, nondistended, normoactive bowel sounds. No palpable organomegaly. MUSCULOSKELETAL: No joint swelling or deformity. EXTREMITIES: No cyanosis, clubbing, or pedal edema. NEUROLOGICAL: Gross neurological examination did not reveal any focal deficits. SKIN: No rashes. 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 -
[2019-11-28 07:06] LABS: ALT 77 U/L (4-49); AST 141 U/L (17-59); African American GFR (CKD) >90 (>60 ml/min/1.73 sqM); Albumin 4.4 g/dL (3.5-5.0); Alkaline Phosphatase 99 U/L (38-126); Anion Gap 8 mmol/L; Bilirubin,Unconjugated 1.3 mg/dL (0.0-1.1); Blood Urea Nitrogen 12 mg/dL (9-20); Calcium 9.5 mg/dL (8.4-10.2); Carbon Dioxide 31 mmol/L (22-30); Chloride 100 mmol/L (98-107); Glucose 106 mg/dL (74-99); Non-African American GFR(CKD) >90 (>60 ml/min/1.73 sqM); Potassium 4.7 mmol/L (3.5-5.1); Sodium 139 mmol/L (137-145); Total Bilirubin 1.3 mg/dL (0.2-1.3); Total Protein 7.5 g/dL (6.3-8.2)
[2019-11-28] MEDS: NICOTINE 21MG/24HR PATCH TRANSDERM SCH (08:20)
[2019-11-28] MEDS: levETIRAcetam 250 MG TAB PO SCH ×2 (08:20→21:00)
--- NOTE | 2019-11-28 11:10 | P.HP ---
Psychiatric H&P - . History & Physical: Allergies Allergy/AdvReac Type Severity Reaction Status Date / Time No Known Allergies Allergy Verified 11/27/19 06:50 Vital Signs Temp 98.6 F 11/28/19 07:07 Pulse 98 11/28/19 07:07 Resp 16 11/28/19 07:07 BP 130/91 11/28/19 07:07 Pulse Ox 98 11/28/19 07:07 Intake & Output 11/27/19 11/28/19 11/28/19 18:59 06:59 18:59 Weight 59.6 kg Laboratory Last Values Sodium 139 mmol/L (137-145) 11/28/19 06:39 Potassium 4.7 mmol/L (3.5-5.1) 11/28/19 06:39 Chloride 100 mmol/L (98-107) 11/28/19 06:39 Carbon Dioxide 31 mmol/L (22-30) H 11/28/19 06:39 Anion Gap 8 mmol/L 11/28/19 06:39 BUN 12 mg/dL (9-20) 11/28/19 06:39 Creatinine 0.80 mg/dL (0.66-1.25) 11/28/19 06:39 Est GFR (CKD-EPI)AfAm >90 (>60 ml/min/1.73 sqM) 11/28/19 06:39 Est GFR (CKD-EPI)NonAf >90 (>60 ml/min/1.73 sqM) 11/28/19 06:39 Glucose 106 mg/dL (74-99) H 11/28/19 06:39 Calcium 9.5 mg/dL (8.4-10.2) 11/28/19 06:39 Total Bilirubin 1.3 mg/dL (0.2-1.3) 11/28/19 06:39 Conjugated Bilirubin 0.0 mg/dL (0.0-0.3) 11/28/19 06:39 Unconjugated Bilirubin 1.3 mg/dL (0.0-1.1) H 11/28/19 06:39 Delta Bilirubin 0.0 mg/dL (0.0-0.2) 11/28/19 06:39 AST 141 U/L (17-59) H 11/28/19 06:39 ALT 77 U/L (4-49) H 11/28/19 06:39 Alkaline Phosphatase 99 U/L (38-126) 11/28/19 06:39 Total Protein 7.5 g/dL (6.3-8.2) 11/28/19 06:39 Albumin 4.4 g/dL (3.5-5.0) 11/28/19 06:39 Urine Opiates Screen Not Detected (NotDetected) 11/27/19 07:00 Ur Oxycodone Screen Not Detected (NotDetected) 11/27/19 07:00 Urine Methadone Screen Not Detected (NotDetected) 11/27/19 07:00 Ur Propoxyphene Screen Not Detected (NotDetected) 11/27/19 07:00 Ur Barbiturates Screen Not Detected (NotDetected) 11/27/19 07:00 U Tricyclic Antidepress Not Detected (NotDetected) 11/27/19 07:00 Ur Phencyclidine Scrn Not Detected (NotDetected) 11/27/19 07:00 Ur Amphetamines Screen Detected (NotDetected) H 11/27/19 07:00 U Methamphetamines Scrn Detected (NotDetected) H 11/27/19 07:00 U Benzodiazepines Scrn Not Detected (NotDetected) 11/27/19 07:00 Urine Cocaine Screen Not Detected (NotDetected) 11/27/19 07:00 U Marijuana (THC) Screen Detected (NotDetected) H 11/27/19 07:00 11/28/19 11:02 IDENTIFYING DATA: This patient is a 49-year-old male who was admitted to the mental health unit through the emergency room for acute symptoms of psychosis. HPI: Patient states that he had called the police 4 times to his home reporting that people really his yard. He indicated that there were people in trees with firearms pointed at him. He was experiencing visual hallucinations of animals. Since he had called so many times please brought him to the hospital for evaluation. Due to the psychosis he was subsequently admitted to the mental health unit. Today he states that he is aware that he was experiencing hallucinations he states he is not experiencing those at this time. He states that he believes his neighbor slipped something into one of his alcoholic drinks. He is aware that he has methamphetamine and marijuana in his system. He denied using marijuana initially and then later stated that he had. He does appear to have an alcohol use disorder. He has a history of 6 DUI arrests and he has been consuming at least 6 beers 3 times a week. He endorses no mood symptoms he does not endorse criteria of a major depressive disorder no history of hypomanic or manic episodes. He is endorsing no specific delusions at this time. He reports having no firearms at home. He states that he is doing better and he would like to be discharged. PAST PSYCHIATRIC HISTORY: No prior inpatient psychiatric admissions, no history of suicide attempts he states he's never been prescribed any psychotropic medication. No outpatient psychiatric care in place. PMH: History of seizure disorder ALLERGIES: NO KNOWN DRUG ALLERGIES MEDICATIONS: Keppra CHEMICAL DEPENDENCY HISTORY: Alcohol use as noted above, 6 drinks 3 times a week, he reports intermittent use of marijuana he denies any use of illicit drugs. He has been in rehab 3 times for alcohol use disorder the last admission was several years ago. FAMILY PSYCHIATRIC HISTORY: None reported, no suicides in the family FAMILY CHEMICAL DEPENDENCY HISTORY: None reported SOCIAL HISTORY: The patient is 49 years old he is single but lives with his girlfriend he has an 18-year-old daughter that resides elsewhere. He is employed doing construction type work he is a limited grade education no history of service. He states he participated in no special education curriculum during his school years. He has no siblings. It appears his primary supports would be his girlfriend and his mother. Legal history includes 6 arrests for DUI he has no warehouse driver's license. Abuse history none reported. MENTAL STATUS EXAM: He patient is a male appearing his stated age she is dressed in his own clothing hygiene grooming adequate. Eye contact is intermittent. He was somewhat hyperactive during the session frequently changing position while in the chair and frequently looking about the room. He indicates his mood is "pretty good" affect is constricted. He reports no hopelessness thinking no suicidal ideation intent or plan he reports no homicidal ideation intent or plan. Currently he denies experiencing any auditory or visual hallucinations he denies expensing any specific delusions. Thought process for the most part is linear he is circumstantial at times he demonstrates no tangential thinking loose associations or flight of ideas. Insight and judgment limited. Cognitively he is oriented to person place month and year he incorrectly names the day of the week as . He is able to name the days of the week backwards. He demonstrates no verbal or physical aggressiveness he demonstrates no involuntary repetitive movements. STRENGTHS/WEAKNESSES: Eyes: Housing, employment weaknesses: Substance use INTELLECTUAL FUNCTIONING: Average IMPRESSIONS: [] 1. Psychosis unspecified, rule out methamphetamine-induced psychosis, alcohol use disorder moderate PLAN: The patient has been admitted to the mental health unit voluntarily. We reviewed his presenting symptoms and treatment options. It does appear that his symptoms of psychosis are clearing. They're likely due to the use of methamphetamine and marijuana. He may be underreporting symptoms to facilitate a discharge. We will continue to monitor for symptoms of psychosis and continue to evaluate his acute safety risk. At this time I have not prescribed an antipsychotic medication we will consider one if needed. He will be seen by internal medicine for routine history and physical exam. We will monitor him for any alcohol withdrawal symptoms vital signs are stable. There is no observed evidence of tremor. Social work will meet with the patient to complete a psychosocial assessment and begin discharge planning. We will involve any support available with treatment and discharge planning as he will allow. Is encouraged to fully participate in the milieu. He may be appropriate for discharge as soon as Sunday if clinically appropriate. We discussed having him participate in inpatient chemical dependency treatment but he declines that option. We will discuss possibly utilizing naltrexone.
[2019-11-29] MEDS: NICOTINE 21MG/24HR PATCH TRANSDERM SCH (08:22)
[2019-11-29] MEDS: levETIRAcetam 250 MG TAB PO SCH ×2 (08:22→20:37)
--- NOTE | 2019-11-29 11:18 | P.PN ---
Progress Note - Text Progress Note Date: 11/29/19 Interval history: Patient was seen wandering the hallways and was directable and agreeable to s peak with specifications writer. Patient states that he just woke up from a nap and appeared to be cooperative and appropriate with specifications writer. He denied any overnight complaints that he is sleeping well. He claims his mood has been gradually improving and denies any anxiety this time. He states that he isn't going to groups and eating well. He was future oriented and talk about discharge possibly Sunday. At this time patient denies any suicidal or homicidal ideations intent or plan. Denies any Auditory or visual hallucinations. Patient denies any side effects from the medications and has been compliant with meds. Mental status exam: General Appearance: Patient appears to be stated age is alert, directable, and cooperative. Fair hygiene and grooming. Behavior: No agitated behavior. Patient is calm and directable Speech: Patient's speech is fluent and nonpressured. Mood/Affect: Mood is improving mildly, affect is congruent and constricted. Suicidality/Homicidality: Patient denies having any suicidal or homicidal ideation intent or plan. Perceptions: Patient denies any auditory or visual hallucinations. Though content/process: There is no evidence of any delusional thought content and thought process is linear and goal-directed. Future oriented. Memory and concentration: AOX3, grossly intact for the purposes of this session Judgment and insight: improving mildly Assessment/Plan: Continue with current diagnosis. Patient continues to meet criteria for inpatient psychiatric admission for symptom stabilization and safety.Patient will be maintained on current psychotropic medication regimen. Monitor for medication compliance and for any psychotropic medication side effects. Will continue to monitor ongoing response to treatment. Encouraged participation in milieu.
[2019-11-30] MEDS: NICOTINE 21MG/24HR PATCH TRANSDERM SCH (07:53)
[2019-11-30] MEDS: levETIRAcetam 250 MG TAB PO SCH ×2 (07:54→20:38)
--- NOTE | 2019-11-30 10:06 | P.PN ---
Progress Note - Text Progress Note Date: 11/30/19 Interval history: Patient was seen sitting at the side of the bed this morning and was directable and agreeable to speak with literary writer. Patient states that he was reading about different coping skills for his "anger management" and states that he is trying to learn a few things. He states that "everybody has anger problems". He states that his mood has been gradually improving however he feels frustrated that he is in the hospital over Mother's Day. Patient was focused on discharge and claims that "hopefully tomorrow I can go". He denies any anxiety at this time and denied any overnight complaints that he is sleeping well. He states that he isn't going to groups and eating well. At this time patient denies any suicidal or homicidal ideations intent or plan. Denies any Auditory or visual hallucinations. Patient denies any side effects from the medications and has been compliant with meds. Mental status exam: General Appearance: Patient appears to be stated age is alert, directable, and cooperative. Fair hygiene and grooming. Behavior: No agitated behavior. Patient is calm and directable Speech: Patient's speech is fluent and nonpressured. Mood/Affect: Mood is improving mildly, affect is congruent and constricted. Suicidality/Homicidality: Patient denies having any suicidal or homicidal ideation intent or plan. Perceptions: Patient denies any auditory or visual hallucinations. Though content/process: There is no evidence of any delusional thought content and thought process is linear and goal-directed. Future oriented. Memory and concentration: AOX3, grossly intact for the purposes of this session Judgment and insight: improving mildly Assessment/Plan: Continue with current diagnosis. Patient continues to meet criteria for inpatient psychiatric admission for symptom stabilization and safety.Patient will be maintained on current psychotropic medication regimen. Monitor for medication compliance and for any psychotropic medication side effects. Will continue to monitor ongoing response to treatment. Encouraged participation in milieu.
[2019-12-01 06:43] VITALS: BP 115/56; PULSE 52; RESP 18; TEMP 97.7
[2019-12-01] MEDS: levETIRAcetam 250 MG TAB PO SCH (08:25)
[2019-12-01] MEDS: NICOTINE 21MG/24HR PATCH TRANSDERM SCH (08:25)
--- NOTE | 2019-12-01 10:26 | P.DS ---
Providers Date of admission: 11/27/19 09:30 Expected date of discharge: 12/01/19 Attending physician: See Meadows Consults: 11/27/19 09:36 Consult Physician Routine Consulting Provider: Jonatan Dumont Consult Reason/Comments: history and physical Do you want consulting provider notified?: Yes Primary care physician: Lynnette Stewart - Discharge Diagnosis(es) (1) Methamphetamine-induced psychotic disorder Current Visit: Yes Status: Acute (2) Alcohol use disorder, moderate, dependence Current Visit: Yes Status: Acute (3) Cannabis use disorder, moderate, dependence Current Visit: Yes Status: Acute Hospital Course: Brief summary of admission note: This patient is a 48-year-old single male who was admitted to the mental health unit through the emergency room for acute symptoms of psychosis. The patient had called the police 4 times reporting people were in his yard he stated that they were in the trees planning firearms at him. He was experiencing other visual hallucinations in the form of animals. He was admitted to the mental health unit for evaluation. He reported that he felt his neighbor slipped something into his alcoholic beverage. He later admitted that he was smoking marijuana. His urine drug screen was positive for marijuana and methamphetamine. For full details please refer to my psychiatric evaluation dated 11/28/2019. Summary of hospital course: The patient was admitted to the mental health unit voluntarily. We reviewed his presenting symptoms and treatment options. It appeared that his psychosis was methamphetamine induced. We did not prescribe any antipsychotic. He was seen by internal medicine for routine history and physical exam. Social work met with the patient to complete a psychosocial assessment and for discharge planning purposes. The patient selectively attended groups. He demonstrated no agitated behavior. He reported a resolution of any hallucinations or delusional thought. He demonstrated no alcohol withdrawal phenomenon. We discussed the possibility of having him attend inpatient chemical dependency treatment but he declined. He is reporting no thoughts of self-harm or harming others. He is demonstrating no evidence of psychosis. Mental status exam: The patient is alert he is pleasant and cooperative he is dressed in his own clothing hygiene grooming are adequate. Eye contact is good speech is fluent spontaneous nonpressured. He indicates his mood is good affect is euthymic and congruent to reported mood. He reports no hopelessness thinking he reports no homicidal ideation intent or plan. He reports no suicidal ideation intent or plan. He reports no auditory or visual hallucinations or any specific delusions. Specifically he denies experiencing any command auditory hallucinations. There is no observed evidence of psychosis today. Thought process is linear he demonstrates no tangential thinking loose associations or flight of ideas. He does not appear hypomanic or manic. He demonstrates no verbal or physical aggressiveness he demonstrates no involuntary repetitive movements. Insight and judgment grossly intact. He is oriented to person place and date. Impressions 1. Methamphetamine-induced psychosis, alcohol use disorder moderate, cannabis use disorder moderate Plan: The patient will be discharged mental health unit today to return home. Social work will arrange his outpatient mental health follow-up. He does not wish to participate in inpatient chemical dependency treatment and does not wish to use naltrexone at this time. He is not prescribed any psychotropic medication upon discharge. He is instructed to abstain from any use of alcohol and marijuana or illicit drugs. He was informed that they would again cause symptoms of psychosis and elevate his safety risk. At this time there is no imminent safety risk he is appropriate for transition outpatient care. He is instructed to return to the hospital with any acute safety concerns. Social work will attempt to involve available support and discharge planning if he will allow. Patient Condition at Discharge: Stable Plan - Discharge Summary New Discharge Prescriptions: New Nicotine 21Mg/24Hr Patch [Habitrol] 1 patch TRANSDERM DAILY #14 patch Continue levETIRAcetam [Keppra] 750 mg PO Q12HR #1 tab No Action levETIRAcetam [Keppra] 750 mg PO Q12HR #60 tab Discharge Medication List levETIRAcetam [Keppra] 750 mg PO Q12HR #1 tab 02/12/18 [Rx] levETIRAcetam [Keppra] 750 mg PO Q12HR #60 tab 04/15/19 [Rx] Nicotine 21Mg/24Hr Patch [Habitrol] 1 patch TRANSDERM DAILY #14 patch 12/01/19 [Rx] Follow up Appointment(s)/Referral(s): Ximena Hernandez [Outside] - 12/02/19 12:00 pm ([place] dog control officer will call to verify phone time and therapist ) Lynnette Stewart MD [Primary Care Provider] - 1-2 days Activity/Diet/Wound Care/Special Instructions: Activity and diet as tolerated. Avoid the use of street drugs and alcohol. Take all medications as prescribed. When you are in need of refills on your medications please contact your medical provider and/or outpatient psychiatrist to have this done. Please go to scheduled outpatient appointment for aftercare treatment. If symptoms return or become worse, call the crisis line at and/or go to the nearest emergency room for evaluation.
== END 2019-12-01 12:45 | disposition home or self-care (01) | DRG 897 ==
LOC: EC 06:40 → 3MHU 09:30
PROVIDERS: ADMIT Psychiatry & Neurology Psychiatry; ATTEND Psychiatry & Neurology Psychiatry
DX: F15.951 Other stimulant use, unspecified with stimulant-induced psychotic disorder with hallucinations (principal); F10.20 Alcohol dependence, uncomplicated; F12.20 Cannabis dependence, uncomplicated; F17.200 Nicotine dependence, unspecified, uncomplicated; G40.909 Epilepsy, unspecified, not intractable, without status epilepticus; Z79.899 Other long term (current) drug therapy; Z80.1 Family history of malignant neoplasm of trachea, bronchus and lung
CPT/HCPCS: 80053; 80306; 82075; 82248; 99285

== ENCOUNTER → 2022-04-10 | Outpatient (CLI) | payer OTHER ==
--- NOTE | 2022-04-11 07:45 | XR ---
EXAMINATION TYPE: XR chest 2V DATE OF EXAM: 04/10/2022 5:27 PM COMPARISON: Chest radiographs from 02/08/2018 TECHNIQUE: XR chest 2V Frontal and lateral views of the chest. CLINICAL INDICATION:Male, 51 years old with history of R91.1 SOLITARY PULMONARY NODULE; FINDINGS: Lungs/Pleura: There is no evidence of pleural effusion, focal consolidation, or pneumothorax. Unchan ged opacity in the right midlung which does not appear to be imaged since cross-sectional imaging. Pulmonary vascularity: Unremarkable. Heart/mediastinum: Cardiomediastinal silhouette is unremarkable. Musculoskeletal: No acute osseous pathology. IMPRESSION: Right midlung opacity, consider further evaluation with CT chest without contrast.
== END | disposition home or self-care (01) ==
LOC: RADXRMAIN 17:02
PROVIDERS: ATTEND Internal Medicine Sleep Medicine
DX: R91.1 Solitary pulmonary nodule (principal)
CPT/HCPCS: 71046

== ENCOUNTER → 2022-07-03 | Outpatient (CLI) | payer OTHER ==
--- NOTE | 2022-07-03 08:33 | CT ---
EXAMINATION TYPE: CT chest wo con DATE OF EXAM: 07/03/2022 COMPARISON: None HISTORY: Pulmonary Nodule CT DLP: 170.[address] of the chest was performed with lung and mediastinal window settings submitted. The la ck of contrast limits evaluation of the vascular, mediastinal and parenchymal structures including th e upper abdomen. LUNGS: The lungs are clear and free of infiltrate. No atelectasis. No pulmonary nodule or mass is de tected. No pleural effusion. No CT evidence of interstitial lung disease. MEDIASTINUM/FLACO: Thoracic aorta is of normal caliber with limited evaluation given lack of contrast . The heart is not enlarged. No evidence for mediastinal mass. No lymph nodes greater than 1cm. UPPER ABDOMEN: No significant abnormality is seen. OTHER: Remote rib fracture of rib #3 and right rib 8 with nodular callus formation seen. IMPRESSION: 1. Nodular callus formation of a remote right rib #8 fracture. No evidence for pulmonary nodule.
== END | disposition home or self-care (01) ==
LOC: RADCTMAIN 07:01
PROVIDERS: ATTEND Internal Medicine
DX: R91.1 Solitary pulmonary nodule (principal)
CPT/HCPCS: 71250

== ENCOUNTER → 2023-03-14 | Outpatient (CLI) | payer OTHER ==
[2023-03-14 19:52] LABS: Appearance,Urine Cloudy (Clear); Basophils # (A) 0.06 X 10*3/uL (0.00-0.10); Basophils % (A) 0.6 %; Bilirubin,Urine Negative (Negative); Blood,Urine Negative (Negative); Color,Urine Yellow (Yellow); Eosinophils # (A) 0.35 X 10*3/uL (0.04-0.35); Eosinophils % (A) 3.7 %; HCT 44.8 % (39.6-50.0); Ketones,Urine Negative (Negative); Lymphocytes # (A) 2.35 X 10*3/uL (0.90-5.00); Lymphocytes % (A) 25.1 %; MCH 33.3 pg (27.0-32.0); MCHC 33.5 d/dL (32.0-37.0); MCV 99.3 FL (80.0-97.0); Mean Platelet Volume 9.1 FL (9.5-12.2); Monocytes # (A) 0.69 X 10*3/uL (0.20-1.00); Monocytes % (A) 7.4 %; NRBC Per 100 WBC 0 X 10*3/uL (0.00-0.01); Nitrite,Urine Negative (Negative); Platelet Count 314 X 10*3/uL (140-440); RBC 4.51 X 10*6/uL (4.40-5.60); Specific Gravity,Urine 1.022 (1.001-1.030); WBC 9.37 X 10*3/uL (4.50-10.00)
[2023-03-14 20:09] LABS: Bacteria,Urine None Seen (None Seen); Calcium Oxalate Crystals,Urine Present (None Seen)
[2023-03-14 22:42] LABS: BUN/Creat Ratio 15.25 Ratio (12.00-20.00); Blood Urea Nitrogen 12.2 mg/dL (9.0-27.0); Calcium 9.2 mg/dL (8.7-10.3); Carbon Dioxide 27.3 mmol/L (21.6-31.8); Chloride 104 mmol/L (96-109); Glucose 76 mg/dL (70-110); Sodium 138 mmol/L (135-145)
== END | disposition home or self-care (01) ==
LOC: LABPAT 16:07
PROVIDERS: ATTEND Urology
DX: Z01.812 Encounter for preprocedural laboratory examination (principal); C61 Malignant neoplasm of prostate; R35.0 Frequency of micturition
CPT/HCPCS: 36415; 80048; 81001; 85025; 87086

== ENCOUNTER → 2023-03-15 | Outpatient (CLI) | payer OTHER ==
--- NOTE | 2023-03-16 11:17 | CT ---
EXAMINATION TYPE: CT abdomen pelvis w con DATE OF EXAM: 03/15/2023 COMPARISON: None INDICATION: F/U PROSTATE CA DLP: 379.40 mGycm, Automated exposure control for dose reduction was used. CONTRAST: 80ML mL of Isovue 300. Study performed with Oral Contrast TECHNIQUE: Axial images were obtained from above the diaphragm to the pubic rami in the axial plane a t 5 mm thick sections. Reconstructed images are reviewed on the computer in the coronal plane. FINDINGS: Limited CT sections are obtained the lung bases. The lung bases are clear. CT ABDOMEN: Liver: Normal Spleen: Normal Pancreas: Normal Adrenal glands: The adrenal glands are normal. Gallbladder: Normal Kidneys: No masses are evident. No hydronephrosis is present. No cysts are present. Delayed images were obtained through the kidneys, which remain unremarkable. Aorta: Vascular calcification is within the aorta. Inferior vena cava: Normal. CT PELVIS: Loops of bowel within the abdomen and pelvis are normal. There are loops of bowel which are incom pletely distended or lack oral contrast limiting their evaluation. Appendix: Normal as visualized. Urinary bladder: Normal. Genitourinary structures: Prostate appears normal. Patient's known prostate cancer is not clearly donald ntified. Calcification is within the prostate. Osseous structures: There is a sclerotic lesion within the left medial iliac wing. Series 4 image 46. Facet degenerative changes are within the lower lumbar spine. There is some increased sclerosis with in a lateral right 10th rib. IMPRESSIONS: 1. Sclerotic lesions medial left iliac wing and lateral right 10th rib. Sclerotic metastasis should be considered.
== END | disposition home or self-care (01) ==
LOC: RADCTMAIN 15:03
PROVIDERS: ATTEND Urology
DX: C61 Malignant neoplasm of prostate (principal); M89.9 Disorder of bone, unspecified
CPT/HCPCS: 74177; Q9967

== ENCOUNTER → 2023-03-21 | Outpatient (CLI) | payer OTHER ==
--- NOTE | 2023-03-21 14:56 | NM ---
EXAMINATION TYPE: NM bone scan whole body DATE OF EXAM: 03/21/2023 COMPARISON: CT scan 03/15/2023, 07/03/2022 CLINICAL INDICATION: Male, 52 years old with history of C61 Prostate CA; Delayed whole-body scanning was performed following the injection of 20.4 mCi Tc 99m MDP. Images acq uired 3 hours post injection. FINDINGS: Moderate intensity uptake right mid posterior rib cage approximately right eighth rib. A moderate intensity uptake left inferior pubic ramus. There is no corresponding abnormal uptake within the left iliac bone to correspond to the recent CT a bnormality. There is an moderate intensity uptake L5-S1 on the right which appears to correspond to degenerative disc disease but previous CT scan. Moderate intensity uptake left knee with mild uptake right knee compatible with post arthritic change . Mild intensity uptake left first MTP compatible with post arthritic change. IMPRESSION: 1. Abnormal uptake posterior right mid rib cage approximate right eighth rib. Appears to correspond to a healed rib fracture seen by CT scan 07/03/2022. Small sclerotic focus noted by recent CT scan in volving the right 10th rib may be too small to be seen by bone scan and remains suspicious for metast ases. 2. Moderate intensity uptake left inferior pubic ramus. There is no corresponding abnormality seen by CT scan. No evidence of previous fracture. No destructive changes or sclerotic changes. Early metast asis remains in the differential diagnosis. 3. Abnormal uptake noted by recent CT scan in the left iliac bone does not demonstrate any definitive abnormal uptake by bone scan.
== END | disposition home or self-care (01) ==
LOC: RADNMMAIN 10:29
PROVIDERS: ATTEND Urology
DX: C61 Malignant neoplasm of prostate (principal); M89.8X5 Other specified disorders of bone, thigh
CPT/HCPCS: 78306; A9503

== ENCOUNTER → 2023-03-22 | Day surgery (SDC) | payer OTHER ==
[~2023-03-22] MED LIST changes: +DEXAMETHASONE SOD PHOSPHATE 4 MG/ML 1 ML VIAL IV ONE; +HEPARIN SODIUM,PORCINE/PF 5,000 UNIT/0.5 ML SYRINGE SQ PRN; +HYDROmorphone 0.5 MG/0.5 ML SYRINGE IVP PRN; +LACTATED RINGERS 1,000 ML IV SCH; +MIDAZOLAM 2 MG/2 ML VIAL IV PRN; +ONDANSETRON 4 MG/2 ML VIAL IVP ONE; +SCOPOLAMINE 1 MG/72 HR PATCH TRANSDERM ONE; -SUCCINYLCHOLINE CHLORIDE VIAL 200 MG/10 ML VIAL IV ONE
[2023-03-22 09:56] VITALS: BP 110/57; PULSE 53; RESP 18; TEMP 97.3
[2023-03-22 10:22] LABS: Amphetamine Screen,Urine Detected (NotDetected); Barbiturate Screen,Urine Not Detected (NotDetected); Benzodiazepines Screen,Urine Not Detected (NotDetected); Cocaine Screen,Urine Not Detected (NotDetected); Methadone Screen, Urine Not Detected (NotDetected); Opiate Screen,Urine Not Detected (NotDetected); Oxycodone Screen, Urine Not Detected (NotDetected); Phencyclidine Screen,Urine Not Detected (NotDetected); Tricyclic Antidepressant,Urine Not Detected (NotDetected); Urn Cannabinoid Scrn Not Detected (NotDetected)
== END ==
LOC: OR 09:42
PROVIDERS: ATTEND Urology
DX: C61 Malignant neoplasm of prostate (principal); Z53.9 Procedure and treatment not carried out, unspecified reason
CPT/HCPCS: 80306; 86850; 86900; 86901

== ENCOUNTER → 2023-04-20 | Outpatient (CLI) | payer OTHER | END | disposition home or self-care (01) | LOC: LABPAT 15:45 | PROVIDERS: ATTEND Urology | DX: Z01.818 Encounter for other preprocedural examination (principal); C61 Malignant neoplasm of prostate; R00.1 Bradycardia, unspecified; R35.0 Frequency of micturition | CPT/HCPCS: 36415; 86850; 86900; 86901; 93005 ==

== ENCOUNTER 2023-04-25 10:00 | Day surgery (SDC) | payer OTHER ==
[~2023-04-25 10:00] MED LIST changes: -MIDAZOLAM 2 MG/2 ML VIAL IV PRN; -SCOPOLAMINE 1 MG/72 HR PATCH TRANSDERM ONE
[2023-04-25 10:45] VITALS: TEMP 97.4
[2023-04-25] MEDS ORDERED: MIDAZOLAM 2 MG/2 ML VIAL IVP ONE ×2 (11:11)
[2023-04-25] MEDS: DEXAMETHASONE SOD PHOSPHATE 4 MG/ML 1 ML VIAL IV ONE ×2 (11:32→11:34)
[2023-04-25 11:33] VITALS: BP 103/66; PULSE 48; RESP 16
--- NOTE | 2023-04-25 12:42 | P.HPIHPCON ---
History of Present Illness H&P Date: 04/25/23 This is a 52 yo male with hx of kerrie 7 (4+3) prostate cancer . Underwent PSMA PET scan that showed evidence no metastatic disease. Option of a robotic radical prostatectomy versus radiation therapy was discussed with him in detail. Risks and benefit of each approach was discussed. He agreed to proceed with a robotic radical prostatectomy, aware of the risk which includes but not limited to bleeding, infection, injury to nearby organs which includes but not limited to bowel, bladder, rectum. Discussed also risk of urinary incontinence and erectile dysfunction. Risk of anesthesia was also discussed with him. Discussed also potential of needing additional treatment for his prostate can cer. He understood all the risk and agreed to proceed Consent for Procedure: I have explained the operation/procedure to the patient, including the risks, benefits, side effects, alternative therapies (including not receiving the proposed treatment or service), the likelihood of the patient achieving his/her goals, and potential recuperation problems for the procedure/sedation/analgesia, as well as any blood products, if indicated. I also explained to the patient the risks, benefits and side effects of the alternatives, as well as the risks related to not receiving the proposed procedure, care, treatment, or services. Past Medical History Past Medical History: Cancer, Musculoskeletal Disorder, Seizure Disorder Additional Past Medical History / Comment(s): alcoholism, last seizure 03-16-23, recent dx. prostate cancer, left shoulder & fadi. hip pain, this surgery was rescheduled from February History of Any Multi-Drug Resistant Organisms: None Reported Past Surgical History: Breast Surgery, Orthopedic Surgery Additional Past Surgical History / Comment(s): knee surgery, benign lump removed from breast years ago Past Anesthesia/Blood Transfusion Reactions: No Reported Reaction Smoking Status: Current every day smoker - Past Family History Father Family Medical History: Cancer Additional Family Medical History / Comment(s): lung cancer and agent orange exposure. Mother Family Medical History: No Reported History Medications and Allergies Home Medications Medication Instructions Recorded Confirmed Type levETIRAcetam [Keppra] 750 mg PO Q12HR #60 tab 04/15/19 04/25/23 Rx Allergies Allergy/AdvReac Type Severity Reaction Status Date / Time No Known Allergies Allergy Verified 04/23/23 15:39 Surgical - Exam Vital Signs Temp Pulse Resp BP Pulse Ox 97.4 F L 49 L 14 110/59 100 04/25/23 10:34 04/25/23 10:34 04/25/23 10:34 04/25/23 10:34 04/25/23 10:34 - General no distress, no pain - Eyes normal ocular movement, no pale - ENT normal nares, normal mucosa - Respiratory normal expansion, normal respiratory effort - Abdomen Abdomen: soft, non tender Assessment and Plan Assessment: OR for robotic radical prostatectomy with pelvic lymph node dissection
[2023-04-25 12:44] LABS: Barbiturate Screen,Urine Not Detected (NotDetected); Benzodiazepines Screen,Urine Not Detected (NotDetected); Cocaine Screen,Urine Not Detected (NotDetected); Methadone Screen, Urine Not Detected (NotDetected); Opiate Screen,Urine Not Detected (NotDetected); Phencyclidine Screen,Urine Not Detected (NotDetected); Tricyclic Antidepressant,Urine Not Detected (NotDetected); Urn Cannabinoid Scrn Not Detected (NotDetected)
[2023-04-25 12:45] LABS: Amphetamine Screen,Urine Detected (NotDetected); Oxycodone Screen, Urine Detected (NotDetected)
== END 2023-04-25 13:25 | disposition home or self-care (01) ==
LOC: OR 10:00
PROVIDERS: ATTEND Urology
DX: Z53.8 Procedure and treatment not carried out for other reasons (principal); C61 Malignant neoplasm of prostate; G40.909 Epilepsy, unspecified, not intractable, without status epilepticus; F17.200 Nicotine dependence, unspecified, uncomplicated; Z80.1 Family history of malignant neoplasm of trachea, bronchus and lung; Z98.890 Other specified postprocedural states; Z79.899 Other long term (current) drug therapy
CPT/HCPCS: 80306; J2250; J1100; J2405; J1644; 86850; 86900; 86901

== ENCOUNTER → 2023-07-19 | Outpatient (CLI) | payer OTHER ==
[2023-07-19 15:34] LABS: Chol/HDL Ratio 3.13 Ratio; LDL Cholesterol,Calculated 88.2 mg/dL (0.0-131.0); VLDL Calculation 18.58 mg/dL (5.00-40.00)
== END | disposition home or self-care (01) ==
LOC: LABWHC1 08:03
PROVIDERS: ATTEND Student in an Organized Health Care Education/Training Program
DX: I10 Essential (primary) hypertension (principal); E78.5 Hyperlipidemia, unspecified; E11.9 Type 2 diabetes mellitus without complications
CPT/HCPCS: 36415; 80061; 83036; 84443

== ENCOUNTER 2023-07-20 07:44 | Emergency (ER) | payer OTHER ==
[2023-07-20] MEDS ORDERED: SODIUM CHLORIDE 0.9% 500 ML 500 ML IV ONE (08:06)
--- NOTE | 2023-07-20 08:07 | ED ---
General Adult HPI - General Chief complaint: Neuro Symptoms/Deficit Stated complaint: L side numbness Time Seen by Provider: 07/20/23 07:56 Source: patient, RN notes reviewed Mode of arrival: EMS Limitations: no limitations - History of Present Illness Initial comments: 53-year-old male with a past medical history significant for alcoholism and seizure disorder presents to the emergency department via EMS with complaint left-sided facial numbness. Patient reports intermittent left- sided facial numbness and metallic taste in his mouth that lasted approximately 2 minutes. Epic hasn't been ongoing for about a year however increased in george quency over the last 2 weeks. He reports that he has been compliant with his Keppra and not had a seizure in years. Denies recent alcohol use. Denies any trauma or injury. Denies any active symptoms while obtaining the history. Denies dizziness lightheadedness, vision changes or vision loss, numbness, tingling or weakness in extremities. - Related Data Previous Rx's Medication Instructions Recorded levETIRAcetam [Keppra] 750 mg PO Q12HR #60 tab 04/15/19 Allergies Allergy/AdvReac Type Severity Reaction Status Date / Time No Known Allergies Allergy Verified 07/20/23 10:32 Review of Systems ROS Statement: Those systems with pertinent positive or pertinent negative responses have been documented in the HPI. ROS Other: All systems not noted in ROS Statement are negative. Past Medical History Past Medical History: Seizure Disorder Additional Past Medical History / Comment(s): alcoholism, seizure History of Any Multi-Drug Resistant Organisms: None Reported Past Surgical History: Orthopedic Surgery Additional Past Surgical History / Comment(s): knee surgery Past Anesthesia/Blood Transfusion Reactions: No Reported Reaction Past Psychological History: No Psychological Hx Reported Smoking Status: Current every day smoker Past Alcohol Use History: None Reported Past Drug Use History: None Reported - Past Family History Father Family Medical History: Cancer Additional Family Medical History / Comment(s): lung cancer and agent orange exposure. Mother Family Medical History: No Reported History General Exam - General Exam Comments Initial Comments: General: Alert, in no acute distress Head: atraumatic normocephalic. Eyes PERRL, EOMI intact, mucous membranes moist Respiratory: Lungs clear to auscultation bilaterally Cardiovascular: Regular rate and rhythm Abdominal: Soft without guarding or rebound Extremities: Normal inspection with full range of motion and normal capillary refill Neuroogic: alert and oriented 3, CN II-XII intact, able to ambulate with steady gait Skin: warm dry and intact with normal color Limitations: no limitations Neurological exam: Present: alert Expanded Patient oriented to: Present: person, place, time Speech: Present: fluid speech Cranial nerves: EOM's Intact: Normal, Gag Reflex: Normal, Tongue Deviation: No rmal, Nystagmus: Normal Cerebellar function: Finger to Nose: Normal, Heel to [place]: Normal Upper motor neuron: Pronator Drift: Normal Sensory exam: Upper Extremity Light Touch: Normal, Lower Extremity Light Touch: Normal Motor strength exam: RUE: 5, LUE: 5, RLE: 5, LLE: 5 Eye Response: (4) open spontaneously Motor Response: (6) obeys commands Verbal Response: (5) oriented Psychiatric exam: Present: normal affect, normal mood Skin exam: Present: warm, dry, intact Course Vital Signs 07/20/23 07/20/23 07/20/23 07:46 08:25 09:03 Temperature 97.5 F L 98.0 F Pulse Rate 58 L 61 41 L Respiratory 18 17 16 Rate Blood Pressure 105/67 110/92 118/74 O2 Sat by Pulse 100 100 100 Oximetry 07/20/23 07/20/23 07/20/23 09:35 10:09 10:47 Temperature 97.9 F Pulse Rate 41 L 46 L Respiratory 17 17 Rate Blood Pressure 118/69 110/76 O2 Sat by Pulse 98 99 Oximetry - Reevaluation(s) Reevaluation #1: 07/20/23 08:06 She'll history and physical exam performed. Patient's NIH score 0. Reevaluation #2: 07/20/23 09:50 Shouldn't reevaluated. Patient denies any symptoms of left facial numbness, extremity weakness or additional focal neurologic deficits. Medical Decision Making - Medical Decision Making Was pt. sent in by a medical professional or institution (Dr. PA, [employer], urgent care, hospital, or [facility]...) When possible be specific @ -[No] Did you speak to anyone other than the patient for history (EMS, parent, family, police, friend...)? What history was obtained from this source @ -[No] Did you review nursing and triage notes (agree or disagree)? Why? @ -[I reviewed and agree with nursing and triage notes] Were old charts reviewed (outside hosp., previous admission, EMS record, old EKG, old radiological studies, urgent care reports/EKG's, [facility] records)? Report findings @ -[No old charts were reviewed] Differential Diagnosis (chest pain, altered mental status, abdominal pain women, abdominal pain men, vaginal bleeding, weakness, fever, dyspnea, syncope, headac he, dizziness, GI bleed, back pain, seizure, CVA, palpatations, mental health, musculoskeletal)? @ -[not applicable] EKG interpreted by me (3pts min.). @ -[As above] X-rays interpreted by me (1pt min.). @ -[None done] CT interpreted by me (1pt min.). @ -CT with and without contrast does not reveal any acute process to account for patient's symptoms U/S interpreted by me (1pt. min.). @ -[None done] What testing was considered but not performed or refused? (CT, X-rays, U/S, labs)? Why? @ -[None] What meds were considered but not given or refused? Why? @ -[None] Did you discuss the management of the patient with other professionals (professionals i.e. , PA, [employer], lab, RT, psych nurse, clinical social worker, director geophysical laboratory, teacher, agricultural technical officer, case supervisor)? Give summary @ -[No] Was smoking cessation discussed for >3mins.? @ -[No] Was critical care preformed (if so, how long)? @ -[No] Were there social determinants of health that impacted care today? How? (Homelessness, low income, unemployed, alcoholism, drug addiction, transportation, low edu. Level, literacy, decrease access to med. care, senior living, rehab)? @ -[No] Was there de-escalation of care discussed even if they declined (Discuss DNR or withdrawal of care, Hospice)? DNR status @ -[No] What co-morbidities impacted this encounter? (DM, HTN, Smoking, COPD, CAD, Cancer, CVA, ARF, Chemo, Hep., AIDS, mental health diagnosis, sleep apnea, morbid obesity)? @ -[None] Was patient admitted / discharged? Hospital course, mention meds given and route, prescriptions, significant lab abnormalities, going to OR and other pertinent info. @ -[Discharged. This is a 53-year-old male who presents the emergency department with metallic taste in his mouth. Patient had a thorough history and physical exam performed. Physical exam is essentially unremarkable. Heart rate regular rate and rhythm, lungs clear to auscultation bilaterally abdomen soft and nontender. There are no focal neuro deficits on exam. The course of the ED patient denies any active numbness, tingling or facial paralysis. Patient's NIH scale is persistently 0 during his ER evaluation. Patient's laboratory and imaging studies were essentially unremarkable. I discussed the results in detail with the patient verbalized understanding all questions were addressed. He was educated on the importance of follow-up with PCP in 1-2 days. He will be discharged in stable condition. Case is discussed with Dr. Silva, ED attending who agrees with plan of care Undiagnosed new problem with uncertain prognosis? @ -[No] Drug Therapy requiring intensive monitoring for toxicity (Heparin, Nitro, Ins ulin, Cardizem)? @ -[No] Were any procedures done? @ -[No] Diagnosis/symptom? @ -Metallic taste in mouth - left arm numbness Acute, or Chronic, or Acute on Chronic? @ -Acute Uncomplicated (without systemic symptoms) or Complicated (systemic symptoms)? @ -Uncomplicated Side effects of treatment? @ -[No] Exacerbation, Progression, or Severe Exacerbation? @ -[No] Poses a threat to life or bodily function? How? (Chest pain, [place], DE, pneumonia, PE, COPD, DKA, ARF, appy, cholecystitis, CVA, Diverticulitis, Homicidal, Suicidal, threat to staff... and all critical care pts) @ -Low likeihood - Lab Data Result diagrams: 07/20/23 08:20 07/20/23 08:20 Lab Results 07/20/23 07/20/23 07/20/23 Range/Units 08:20 08:20 08:20 WBC 9.0 (3.8-10.6) k/uL RBC 4.44 (4.30-5.90) m/uL Hgb 14.9 (13.0-17.5) gm/dL Hct 42.9 (39.0-53.0) % MCV 96.7 (80.0-100.0) fL MCH 33.5 (25.0-35.0) pg MCHC 34.7 (31.0-37.0) g/dL RDW 12.8 (11.5-15.5) % Plt Count 302 (150-450) k/uL MPV 7.4 Neutrophils % 61 % Lymphocytes % 24 % Monocytes % 7 % Eosinophils % 5 % Basophils % 1 % Neutrophils # 5.5 (1.3-7.7) k/uL Lymphocytes # 2.2 (1.0-4.8) k/uL Monocytes # 0.6 (0-1.0) k/uL Eosinophils # 0.5 (0-0.7) k/uL Basophils # 0.1 (0-0.2) k/uL PT 10.4 (10.0-12.5) sec INR 0.9 (<1.2) APTT 25.4 (22.0-30.0) sec Sodium 140 (137-145) mmol/L Potassium 4.6 (3.5-5.1) mmol/L Chloride 105 (98-107) mmol/L Carbon Dioxide 27 (22-30) mmol/L Anion Gap 8 mmol/L BUN 20 (9-20) mg/dL Creatinine 0.61 L (0.66-1.25) mg/dL Est GFR (CKD-EPI)AfAm >90 (>60 ml/min/1.73 sqM) Est GFR (CKD-EPI)NonAf >90 (>60 ml/min/1.73 sqM) Glucose 97 (74-99) mg/dL Calcium 8.9 (8.4-10.2) mg/dL Total Bilirubin 0.4 (0.2-1.3) mg/dL AST 20 (17-59) U/L ALT 19 (4-49) U/L Alkaline Phosphatase 112 (38-126) U/L Total Protein 6.6 (6.3-8.2) g/dL Albumin 3.8 (3.5-5.0) g/dL Urine Color Urine Appearance (Clear) Urine pH (5.0-8.0) Ur Specific Mcclure (1.001-1.035) Urine Protein (Negative) Urine Glucose (UA) (Negative) Urine Ketones (Negative) Urine Blood (Negative) Urine Nitrite (Negative) Urine Bilirubin (Negative) Urine Urobilinogen (<2.0) mg/dL Ur Leukocyte Esterase (Negative) 07/20/23 Range/Units 09:40 WBC (3.8-10.6) k/uL RBC (4.30-5.90) m/uL Hgb (13.0-17.5) gm/dL Hct (39.0-53.0) % MCV (80.0-100.0) fL MCH (25.0-35.0) pg MCHC (31.0-37.0) g/dL RDW (11.5-15.5) % Plt Count (150-450) k/uL MPV Neutrophils % % Lymphocytes % % Monocytes % % Eosinophils % % Basophils % % Neutrophils # (1.3-7.7) k/uL Lymphocytes # (1.0-4.8) k/uL Monocytes # (0-1.0) k/uL Eosinophils # (0-0.7) k/uL Basophils # (0-0.2) k/uL PT (10.0-12.5) sec INR (<1.2) APTT (22.0-30.0) sec Sodium (137-145) mmol/L Potassium (3.5-5.1) mmol/L Chloride (98-107) mmol/L Carbon Dioxide (22-30) mmol/L Anion Gap mmol/L BUN (9-20) mg/dL Creatinine (0.66-1.25) mg/dL Est GFR (CKD-EPI)AfAm (>60 ml/min/1.73 sqM) Est GFR (CKD-EPI)NonAf (>60 ml/min/1.73 sqM) Glucose (74-99) mg/dL Calcium (8.4-10.2) mg/dL Total Bilirubin (0.2-1.3) mg/dL AST (17-59) U/L ALT (4-49) U/L Alkaline Phosphatase (38-126) U/L Total Protein (6.3-8.2) g/dL Albumin (3.5-5.0) g/dL Urine Color Colorless Urine Appearance Clear (Clear) Urine pH 5.5 (5.0-8.0) Ur Specific [place] >1.050 H (1.001-1.035) Urine Protein Negative (Negative) Urine Glucose (UA) Negative (Negative) Urine Ketones Negative (Negative) Urine Blood Negative (Negative) Urine Nitrite Negative (Negative) Urine Bilirubin Negative (Negative) Urine Urobilinogen <2.0 (<2.0) mg/dL Ur Leukocyte Esterase Negative (Negative) Disposition Clinical Impression: Metallic taste, Left facial numbness Disposition: HOME SELF-CARE Condition: Stable Instructions (If sedation given, give patient instructions): Paresthesia (ED) Additional Instructions: Please monitor symptoms closely Please follow-up with Dr. Stewart in 1-2 days for further evaluation These return to the nearest emergency department if symptoms worsen, become more frequent or persist Is patient prescribed a controlled substance at d/c from ED?: No Referrals: Lynnette Stewart MD [Primary Care Provider] - 1-2 days Time of Disposition: 10:37
[2023-07-20 08:28] LABS: Basophils # (A) 0.1 k/uL (0-0.2); Basophils % (A) 1 %; Eosinophils # (A) 0.5 k/uL (0-0.7); Eosinophils % (A) 5 %; HCT 42.9 % (39.0-53.0); HGB 14.9 gm/dL (13.0-17.5); Lymphocytes # (A) 2.2 k/uL (1.0-4.8); Lymphocytes % (A) 24 %; MCH 33.5 pg (25.0-35.0); MCHC 34.7 g/dL (31.0-37.0); MCV 96.7 fL (80.0-100.0); Mean Platelet Volume 7.4; Monocytes # (A) 0.6 k/uL (0-1.0); Monocytes % (A) 7 %; Neutrophils # (A) 5.5 k/uL (1.3-7.7); Neutrophils % (A) 61 %; Platelet Count 302 k/uL (150-450); RBC 4.44 m/uL (4.30-5.90); RDW 12.8 % (11.5-15.5)
[2023-07-20 08:44] LABS: ALT 19 U/L (4-49); AST 20 U/L (17-59); African American GFR (CKD) >90 (>60 ml/min/1.73 sqM); Albumin 3.8 g/dL (3.5-5.0); Alkaline Phosphatase 112 U/L (38-126); Anion Gap 8 mmol/L; Blood Urea Nitrogen 20 mg/dL (9-20); Calcium 8.9 mg/dL (8.4-10.2); Carbon Dioxide 27 mmol/L (22-30); Chloride 105 mmol/L (98-107); Glucose 97 mg/dL (74-99); Non-African American GFR(CKD) >90 (>60 ml/min/1.73 sqM); Potassium 4.6 mmol/L (3.5-5.1); Sodium 140 mmol/L (137-145); Total Bilirubin 0.4 mg/dL (0.2-1.3); Total Protein 6.6 g/dL (6.3-8.2)
--- NOTE | 2023-07-20 08:58 | CT ---
EXAMINATION TYPE: CT brain wo con CT DLP: 1091.7 mGycm, Automated exposure control for dose reduction was used. DATE OF EXAM: 07/20/2023 8:53 AM COMPARISON: 02/06/2018. CLINICAL INDICATION:Male, 53 years old with history of left facial numbness, LEFT SIDED WEAKNESS TECHNIQUE: Brain: Axial CT images of the brain were obtained with coronal and sagittal reformats created and rev iewed. Contrast used: None. Oral contrast used: None. FINDINGS: Brain: Extra-axial spaces: No abnormal extra-axial fluid collections. Ventricular system: Within normal limits Cerebral parenchyma: No acute intraparenchymal hemorrhage or mass effect. The crespo-white junction is well differentiated. Cerebellum: Unremarkable. Mass effect: No evidence of midline shift. Intracranial vasculature: unremarkable Soft tissues: Normal. Calvarium/osseous structures: No depressed skull fracture. Paranasal sinuses and mastoid air cells: Mild scattered paranasal sinus disease. Visualized orbits: Orbital contents are intact. IMPRESSION: No acute intracranial process.
[2023-07-20 09:29] LABS: INR 0.9 (<1.2); Partial Thromboplastin Time 25.4 sec (22.0-30.0); Prothrombin Time 10.4 sec (10.0-12.5)
[2023-07-20 09:55] VITALS: RESP 17
[2023-07-20 09:59] LABS: Appearance,Urine Clear (Clear); Bilirubin,Urine Negative (Negative); Blood,Urine Negative (Negative); Color,Urine Colorless; Glucose,Urine (UA) Negative (Negative); Ketones,Urine Negative (Negative); Leukocyte Esterase,Urine Negative (Negative); Nitrite,Urine Negative (Negative); PH, Urine 5.5 (5.0-8.0); Protein,Urine Negative (Negative); Urobilinogen,Urine <2.0 mg/dL (<2.0)
[2023-07-20 10:00] LABS: Specific Gravity,Urine >1.050 (1.001-1.035)
[2023-07-20 10:20] VITALS: BP 110/76; PULSE 46
--- NOTE | 2023-07-20 10:31 | CT ---
EXAMINATION TYPE: CT angio head neck DATE OF EXAM: 07/20/2023 8:57 AM COMPARISON: Correlation with concurrent CT head. CLINICAL INDICATION:Male, 53 years old with history of left facial numbness; PHH, LEFT SIDED WEAKNESS TECHNIQUE: Axially acquired helical CT angiogram of the head and neck was obtained with contrast. Axi al images are supplemented with 3D reconstructions [facility] NAS[facility] criteria used. Contrast used: 65 mL of Isovue 300 with IV Contrast, Oral contrast used: None. CT DLP: 361.2 mGycm, Automated exposure control for dose reduction was used. FINDINGS: CTA Neck: The left common carotid artery shares common origin with the brachiocephalic artery. Aorti c arch is patent without evidence of dissection or significant atherosclerotic disease. Mild soft tis ginger plaque in the proximal left subclavian artery without significant stenosis. Left common carotid i s patent. Mild soft plaque in its midportion without significant stenosis. At the bifurcation, mild m ostly calcified plaque in the proximal ICA without significant stenosis. ICA is thereafter patent. On the right, the common carotid artery is patent. At the bifurcation, mild mostly calcified plaque in the proximal ICA without significant stenosis. The ICAs thereafter patent. There is mild calcific plaque without significant stenosis at the origin of the right vertebral arter y, which is dominant. The vessels are otherwise patent. There is no clearly significant stenosis at t he origin but assessment is limited by small size. The vessel thereafter appears patent to the skull base. There is no hemodynamically significant diameter stenosis, dissection, nor pseudoaneurysm prese nt. Other: No other soft tissue abnormality is seen in the neck. The included upper chest shows mild/mode rate emphysematous changes in the lung apices. No acute infiltrate or pneumothorax. Mild degenerative changes of the cervical spine without acute pathology. Mild anterolisthesis C7 on T1 appears degener ative. CTA Head: The anterior and posterior cerebral circulations are patent. Patent right P-comm. No hemod ynamically significant stenosis, aneurysm, dissection, or arteriovenous malformation is shown. No lar ge vessel occlusion. The dural venous sinuses appear patent without evidence of thrombosis. Left transverse sinus is domin ant. A couple of left transverse sinus arachnoid granulations are seen. IMPRESSION: CTA neck: No dissection, hemodynamically significant stenosis, or pseudoaneurysm detected in the carotid or queta tebral arteries in the neck. CTA head: No intracranial major vascular occlusion or significant stenosis, or sizable aneurysm detected in the limits of CTA.
[2023-07-20 11:09] VITALS: TEMP 97.9
== END 2023-07-20 10:48 | disposition home or self-care (01) ==
LOC: EC 07:44
DX: R43.2 Parageusia (principal); R22.0 Localized swelling, mass and lump, head; F17.200 Nicotine dependence, unspecified, uncomplicated
CPT/HCPCS: 36415; 80053; 85025; 85610; 85730; 81003; 70496; 70450; 70498; 99284; 96360; Q9967

== ENCOUNTER → 2023-12-14 | Outpatient (CLI) | payer OTHER ==
--- NOTE | 2023-12-27 19:28 | CTL ---
EXAMINATION TYPE: CT Low Dose Lung DATE OF EXAM: 12/14/2023 3:44 PM CLINICAL INDICATION:Male, 53 years old with history of Z12.2 ENCNTR SCREEN FOR MALIGNANT NEOPLASM OF RESP; smoker , history of tobacco use. COMPARISON: CT chest 07/03/2022 TECHNIQUE: CT scan of the chest obtained without contrast from approximately the lung apices through the upper abdomen. Axial, coronal and sagittal reformatted images were obtained. Low dose technique w as utilized for nodule screening purposes. CT DLP: 81.3 mGycm, Automated exposure control for dose reduction was used. CT Contrast: IV contrast used: None. Oral contrast used: None. FINDINGS: Lack of intravenous contrast and low dose technique limits the evaluation of the vascular and soft ti ssue structures. LUNGS: No evidence of pulmonary fibrosis. No evidence of focal consolidation or infiltrate. There are emphysematous changes bilaterally, minimal, with trace associated scarring. NODULES: No clinically significant nodules demonstrated. PLEURA: No sizeable pleural effusion or pneumothorax. AIRWAY: Central airways are patent. Borderline mild bronchiectasis in areas of the lower lobes. LOWER NECK: No significant findings. Grossly unremarkable thyroid. MEDIASTINUM: No evidence of enlarged mediastinal or hilar nodes, in the limits of noncontrast exam.. HEART: Normal heart size. No appreciable coronary artery calcifications. No appreciable pericardial e ffusion. VASCULATURE: Normal appearing aorta. Ascending aorta is 3 CM, descending is 2.3 CM. Pulmonary artery trunk diameter considered normal at 2.5 cm. Otherwise the vessels aren't further assessed without co ntrast. SOFT TISSUES/LYMPH NODES: Unremarkable soft tissues. No axillary adenopathy. UPPER ABDOMEN: No clearly significant acute findings. Visualized stomach appears quite distended with heterogeneous material, likely foodstuffs. No mass of the visualized adrenals. MUSCULOSKELETAL: No acute osseous pathology is seen. Old healed right eighth rib fracture deformity p osterolaterally with a gnarly appearance, and forms pseudoarticulation with the adjacent ninth rib. M ild multilevel degenerative disk disease throughout the visualized spine. IMPRESSION: 1. No clinically significant pulmonary nodules. CT LUNG-RADS AND FOLLOWUP RECOMMENDATION: Lung-RADS Category 1, Negative: Continue annual screening with LDCT in 12 months. C Modifier (Personal history of lung cancer?): No. S Modifier (Other clinically significant or potentially significant findings?): No. Other significant or potentially significant abnormalities: None. Recommend smoking cessation (if current smoker), or continuation of smoking cessation (if prior smoke r). Annual screening for lung cancer with low-dose computed tomography is recommended in adults ages 55 to 77 years who have a 30 pack-year smoking history and currently smoke or have quit within the pa st 15 years. Screening should be discontinued once a person has not smoked for 15 years or develops a health problem that substantially limits life expectancy or the ability or willingness to have curat chinedu lung surgery. Lung-RADS v.2021 Link Here [email or web address]
== END | disposition home or self-care (01) ==
LOC: RADCTMAIN 15:03
PROVIDERS: ATTEND Student in an Organized Health Care Education/Training Program
DX: Z12.2 Encounter for screening for malignant neoplasm of respiratory organs (principal); F17.210 Nicotine dependence, cigarettes, uncomplicated
CPT/HCPCS: 71271